=== PATIENT | male | born 1935 | race Caucasian/White ===

== ENCOUNTER 2017-01-11 23:00 | Inpatient (IN) | payer MEDICARE ==
[2017-01-11] MEDS ORDERED: SODIUM CHLORIDE 0.9% 1,000 ML IV ONE (23:13)
[2017-01-11 23:28] LABS: Basophils % (A) 1 %; CH 31.4; CHCM 33.5; Eosinophils # (A) 0.2 k/uL (0-0.7); Eosinophils % (A) 2 %; HCT 44.2 % (39.0-53.0); HDW 2.35; HGB 14.4 gm/dL (13.0-17.5); Luc # (Auto) 0.19; Luc % (Auto) 3; Lymphocytes # (A) 1.8 k/uL (1.0-4.8); Lymphocytes % (A) 26 %; MCH 30.6 pg (25.0-35.0); MCHC 32.5 g/dL (31.0-37.0); MCV 94.1 fL (80.0-100.0); Monocytes # (A) 0.3 k/uL (0-1.0); Monocytes % (A) 5 %; Neutrophils # (A) 4.2 k/uL (1.3-7.7); Neutrophils % (A) 63 %; RDW 13.4 % (11.5-15.5); WBC 6.7 k/uL (3.8-10.6); WBC (Perox) 6.31
[2017-01-11 23:34] LABS: Partial Thromboplastin Time 27.2 sec (22.0-30.0); Prothrombin Time 10.6 sec (9.0-12.0)
[2017-01-11 23:40] LABS: ALT 29 U/L (21-72); AST 25 U/L (17-59); Alkaline Phosphatase 64 U/L (38-126); Anion Gap 16 mmol/L; Blood Urea Nitrogen 20 mg/dL (9-20); Calcium 9.2 mg/dL (8.4-10.2); Carbon Dioxide 26 mmol/L (22-30); Chloride 106 mmol/L (98-107); Glucose 118 mg/dL (74-99); Magnesium 2.2 mg/dL (1.6-2.3); Non-African American GFR(MDRD) >60 (>60 ml/min/1.73 sqM); Potassium 3.9 mmol/L (3.5-5.1); Sodium 148 mmol/L (137-145); Total Bilirubin 0.3 mg/dL (0.2-1.3); Total Protein 7.9 g/dL (6.3-8.2)
--- NOTE | 2017-01-11 23:47 | ED ---
Altered Mental Status HPI - General Chief Complaint: Altered Mental Status Stated Complaint: altered mental status/fall Time Seen by Provider: 01/11/17 23:00 Source: patient, EMS, RN notes reviewed, old records reviewed Mode of arrival: EMS - History of Present Illness Initial Comments: This is a 81-year-old male who was brought in by EMS for evaluation after being found lying on his floor by a neighbor. Apparently the neighbor was walking by saw him laying on the floor by looking through his window. Patient does not know how he got there does not remember falling also denies any head neck or back pain at this time. He is not recall falling he is not sure if he passed out. He is a poor historian. Normally he is apparently awake alert oriented 2 possibly 3 at times today per EMS he is only alert oriented 1. MD Complaint: altered mental status, other - Related Data Home Medications Medication Instructions Recorded Confirmed Lisinopril-Hctz 20-12.5 mg 1 each PO DAILY 10/07/14 10/31/15 [Zestoretic 20-12.5] Previous Rx's Medication Instructions Recorded Aspirin EC [Ecotrin] 325 mg PO DAILY tablet. 10/10/14 Atorvastatin Calcium [Lipitor] 10 mg PO HS #1 tab 10/10/14 Folic Acid 1 mg PO DAILY@1200 tablet 10/10/14 Metoprolol Tartrate [Lopressor] 25 mg PO BID tab 10/10/14 Multivitamins, Thera [Multivitamin 1 each PO DAILY@1200 tab 10/10/14 (formulary)] Thiamine [Vitamin B-1] 100 mg PO DAILY@1200 tablet 10/10/14 cloNIDine HCL [Catapres] 0.1 mg PO BID tab 10/10/14 Allergies Allergy/AdvReac Type Severity Reaction Status Date / Time No Known Allergies Allergy Verified 10/31/15 18:43 Review of Systems ROS Statement: Those systems with pertinent positive or pertinent negative responses have been documented in the HPI. ROS Other: All systems not noted in ROS Statement are negative. Limitations: ROS unobtainable due to patients medical condition Past Medical History Past Medical History: Cancer, Dementia, Hypertension, Prostate Disorder Additional Past Medical History / Comment(s): 10/07/14 Pt presented to [facility] ER with C/o Diplopia starting 10/05/14. He states he got up to use the bathroom Sat nite into Tuesday and noticed double vision at that time. The double vision was making. it difficult to walk. Other HX: PROSTATE CANCER with removal, R foot 5th toe redness and edema "getting better". Bilateral tinnitis, Hemorrhiods History of Any Multi-Drug Resistant Organisms: None Reported Additional Past Surgical History / Comment(s): NECK SURGERY AND PROSTATE REMOVED , bilateral cataract removal with lens implants. Past Anesthesia/Blood Transfusion Reactions: No Reported Reaction Past Psychological History: No Psychological Hx Reported Additional Psychological History / Comment(s): Pt lives alone in his own home. Pt is normally independent. He drives a car. Smoking Status: Former smoker Past Alcohol Use History: None Reported Past Drug Use History: None Reported - Past Family History Father Family Medical History: Diabetes Mellitus Additional Family Medical History / Comment(s): Father may have had cancer but pt is not certain. Mother Family Medical History: Cancer General Exam - General Exam Comments Initial Comments: This is a well-developed well-nourished awake alert but confused male he does have a cervical collar on with a [place] Coma Scale of 14 General appearance: alert, in no apparent distress Head exam: Present: atraumatic, normocephalic, normal inspection Eye exam: Present: normal appearance, PERRL, EOMI. Absent: scleral icterus, conjunctival injection, periorbital swelling ENT exam: Present: normal exam, mucous membranes moist Neck exam: Present: normal inspection. Absent: tenderness, meningismus, lymphadenopathy Respiratory exam: Present: normal lung sounds bilaterally. Absent: respiratory distress, wheezes, rales, rhonchi, stridor Cardiovascular Exam: Present: regular rate, normal rhythm, normal heart sounds. Absent: systolic murmur, diastolic murmur, rubs, gallop, clicks GI/Abdominal exam: Present: soft, normal bowel sounds. Absent: distended, tenderness, guarding, rebound, rigid Extremities exam: Present: normal inspection, full ROM, normal capillary refill. Absent: tenderness, pedal edema, joint swelling, calf tenderness Back exam: Present: normal inspection Neurological exam: Present: alert, altered, CN II-XII intact. Absent: motor sensory deficit Psychiatric exam: Present: normal affect, normal mood Skin exam: Present: warm, dry, intact, normal color. Absent: rash Course Vital Signs 01/11/17 23:02 Temperature 97.1 F L Pulse Rate 94 Respiratory 18 Rate Blood Pressure 146/82 O2 Sat by Pulse 95 Oximetry - Reevaluation(s) Reevaluation #1: 01/12/17 00:39 I did remove the cervical collar at 12:30 AM after review the CAT scan and report. No tenderness palpation over the cervical spine or neck. Medical Decision Making - Medical Decision Making Patient remains awake and alert but confused. Patient does demonstrate an elevated lactic acid this is likely on the basis of dehydration. Patient will be admitted for evaluation of syncope and fall hydration will be given and neuro evaluation. - Lab Data Result diagrams: 01/11/17 23:14 01/11/17 23:14 Lab Results 01/11/17 01/11/17 01/11/17 Range/Units 23:14 23:14 23:14 WBC 6.7 (3.8-10.6) k/uL RBC 4.70 (4.30-5.90) m/uL Hgb 14.4 (13.0-17.5) gm/dL Hct 44.2 (39.0-53.0) % MCV 94.1 (80.0-100.0) fL MCH 30.6 (25.0-35.0) pg MCHC 32.5 (31.0-37.0) g/dL RDW 13.4 (11.5-15.5) % Plt Count 231 (150-450) k/uL Neutrophils % 63 % Lymphocytes % 26 % Monocytes % 5 % Eosinophils % 2 % Basophils % 1 % Neutrophils # 4.2 (1.3-7.7) k/uL Lymphocytes # 1.8 (1.0-4.8) k/uL Monocytes # 0.3 (0-1.0) k/uL Eosinophils # 0.2 (0-0.7) k/uL Basophils # 0.0 (0-0.2) k/uL PT (9.0-12.0) sec INR (<1.1) APTT (22.0-30.0) sec Sodium 148 H (137-145) mmol/L Potassium 3.9 (3.5-5.1) mmol/L Chloride 106 (98-107) mmol/L Carbon Dioxide 26 (22-30) mmol/L Anion Gap 16 mmol/L BUN 20 (9-20) mg/dL Creatinine 1.10 (0.66-1.25) mg/dL Est GFR (MDRD) Af Amer >60 (>60 ml/min/1.73 sqM) Est GFR (MDRD) Non-Af >60 (>60 ml/min/1.73 sqM) Glucose 118 H (74-99) mg/dL Plasma Lactic Acid Wilmer (0.7-2.0) mmol/L Calcium 9.2 (8.4-10.2) mg/dL Magnesium 2.2 (1.6-2.3) mg/dL Total Bilirubin 0.3 (0.2-1.3) mg/dL AST 25 (17-59) U/L ALT 29 (21-72) U/L Alkaline Phosphatase 64 (38-126) U/L Ammonia (<30) umol/L Total Creatine Kinase 108 (55-170) U/L CK-MB (CK-2) 1.3 (0.0-2.4) ng/mL CK-MB (CK-2) Rel Index 1.2 Troponin I <0.012 (0.000-0.034) ng/mL Total Protein 7.9 (6.3-8.2) g/dL Albumin 4.6 (3.5-5.0) g/dL 01/11/17 01/11/17 Range/Units 23:14 23:17 WBC (3.8-10.6) k/uL RBC (4.30-5.90) m/uL Hgb (13.0-17.5) gm/dL Hct (39.0-53.0) % MCV (80.0-100.0) fL MCH (25.0-35.0) pg MCHC (31.0-37.0) g/dL RDW (11.5-15.5) % Plt Count (150-450) k/uL Neutrophils % % Lymphocytes % % Monocytes % % Eosinophils % % Basophils % % Neutrophils # (1.3-7.7) k/uL Lymphocytes # (1.0-4.8) k/uL Monocytes # (0-1.0) k/uL Eosinophils # (0-0.7) k/uL Basophils # (0-0.2) k/uL PT 10.6 (9.0-12.0) sec INR 1.0 (<1.1) APTT 27.2 (22.0-30.0) sec Sodium (137-145) mmol/L Potassium (3.5-5.1) mmol/L Chloride (98-107) mmol/L Carbon Dioxide (22-30) mmol/L Anion Gap mmol/L BUN (9-20) mg/dL Creatinine (0.66-1.25) mg/dL Est GFR (MDRD) Af Amer (>60 ml/min/1.73 sqM) Est GFR (MDRD) Non-Af (>60 ml/min/1.73 sqM) Glucose (74-99) mg/dL Plasma Lactic Acid Wilmer 2.7 H* (0.7-2.0) mmol/L Calcium (8.4-10.2) mg/dL Magnesium (1.6-2.3) mg/dL Total Bilirubin (0.2-1.3) mg/dL AST (17-59) U/L ALT (21-72) U/L Alkaline Phosphatase (38-126) U/L Ammonia <9 (<30) umol/L Total Creatine Kinase (55-170) U/L CK-MB (CK-2) (0.0-2.4) ng/mL CK-MB (CK-2) Rel Index Troponin I (0.000-0.034) ng/mL Total Protein (6.3-8.2) g/dL Albumin (3.5-5.0) g/dL - EKG Data -: EKG Interpreted by Nh EKG shows normal: sinus rhythm (Sinus rhythm rate of 90. Interval 174 QRS duration 78 daily since QTC of 346/423 artifact is present) - Radiology Data Radiology results: report reviewed (I did review the imaging and reports no acute findings or is evidence of chronic changes of cervical spine.), image reviewed Disposition Clinical Impression: Syncope, Fall, Dehydration, Elevated lactic acid level Disposition: ADMITTED IP TO THIS [facility] Condition: Stable
[2017-01-11 23:48] LABS: Ammonia <9 umol/L (<30)
[2017-01-11 23:49] LABS: Creatine Kinase 108 U/L (55-170)
[2017-01-11] MEDS ORDERED: SODIUM CHLORIDE 0.9% 1,000 ML IV STA ×2 (23:55)
[2017-01-12 00:03] LABS: Creatine Kinase MB 1.3 ng/mL (0.0-2.4); Troponin I <0.012 ng/mL (0.000-0.034)
--- NOTE | 2017-01-12 00:23 | CT ---
EXAM: CT Head Without Intravenous Contrast CLINICAL HISTORY: Reason: Pain TECHNIQUE: Axial computed tomography images of the head/brain without intravenous contrast. CTDI is 58 mGy and DLP is 1345.3 mGy-cm This CT exam was performed using one or more of the following dose reduction techniques: automated exposure control, adjustment of the mA and/or kV according to patient size, and/or use of iterative reconstruction technique. Coronal and sagittal reformatted images were created and reviewed. COMPARISON: CT Head dated 10/08/14 FINDINGS: Brain: Mild chronic small vessel ischemic changes. Mild global volume loss. No evolving territorial infarction. No mass effect or edema. No hemorrhage. Ventricles: Unremarkable. No ventriculomegaly. Bones/joints: Unremarkable. No acute fracture. Soft tissues: Unremarkable. Sinuses: Opacification of the right maxillary sinus with calcifications likely from chronic sinusitis with fungal colonization vs inspissation. Mastoid air cells: Unremarkable as visualized. No mastoid effusion. Orbits: Bilateral lens replacements. IMPRESSION: No acute findings. Mild involution. Chronic right maxillary sinus disease. EXAM: CT Cervical Spine Without Intravenous Contrast CLINICAL HISTORY: Reason: Pain TECHNIQUE: Axial computed tomography images of the cervical spine without intravenous contrast. CTDI is 32.7 mGy and DLP is 632.8 mGy-cm This CT exam was performed using one or more of the following dose reduction techniques: automated exposure control, adjustment of the mA and/or kV according to patient size, and/or use of iterative reconstruction technique. Coronal and sagittal reformatted images were created and reviewed. COMPARISON: No relevant prior studies available. FINDINGS: Vertebrae: Grade 2 anterolisthesis of C7 over T1 with old fracture deformities of T1. Pedicle screws and posterior fusion rods are seen involving C5 thru T2. Multiple flowing bridging marginal osteophytes are seen suggestive of diffuse idiopathic skeletal hyperostosis. Discs/spinal canal/neural foramina: Disc osteophyte complexes are seen at all levels of the cervical spine with varying degrees of neuroforaminal stenosis and central stenosis seen. Facet disease is seen at all levels. Soft tissues: Unremarkable. Lung apices: Unremarkable as visualized. IMPRESSION: Grade 2 anterolisthesis of C7 over T1 with old fracture deformities of T1. Pedicle screws and posterior fusion rods are seen involving C5 thru T2. No acute fracture. Cervical spondylosis.
--- NOTE | 2017-01-12 00:25 | XR ---
EXAM: XR Chest, 2 Views CLINICAL HISTORY: Reason: altered mental status TECHNIQUE: Frontal and lateral views of the chest. COMPARISON: CXR 10/07/14 FINDINGS: Lungs: Left basilar atelectasis. No consolidation. Pleural space: Unremarkable. No pneumothorax. Heart: Unremarkable. No cardiomegaly. Mediastinum: Unremarkable. Bones/joints: Fusion hardware once again seen within the lower cervical and upper thoracic spine. Multilevel degenerative changes of the thoracic spine with bridging marginal osteophytes, possibly diffuse idiopathic skeletal hyperostosis. IMPRESSION: Left basilar atelectasis.
[2017-01-12 01:40] LABS: Glucose,Whole Blood 80 mg/dL (75-99)
[2017-01-12 02:29] LABS: Appearance,Urine Clear (Clear); Bilirubin,Urine Negative (Negative); Glucose,Urine (UA) Negative (Negative); Ketones,Urine Negative (Negative); Leukocyte Esterase,Urine Negative (Negative); Nitrite,Urine Negative (Negative); Protein,Urine Negative (Negative); Specific Gravity,Urine 1.003 (1.001-1.035); UA Billing (MACRO vs. MICRO) CHEM; Urobilinogen,Urine <2.0 mg/dL (<2.0)
[2017-01-12 05:06] LABS: Basophils % (A) 1 %; CHCM 32.9; Eosinophils # (A) 0.1 k/uL (0-0.7); Eosinophils % (A) 2 %; HCT 43.5 % (39.0-53.0); HDW 2.34; HGB 13.6 gm/dL (13.0-17.5); Luc # (Auto) 0.17; Luc % (Auto) 3; Lymphocytes # (A) 1.4 k/uL (1.0-4.8); Lymphocytes % (A) 27 %; MCH 29.6 pg (25.0-35.0); MCHC 31.2 g/dL (31.0-37.0); MCV 94.8 fL (80.0-100.0); Mean Platelet Volume 7.2; Monocytes # (A) 0.3 k/uL (0-1.0); Monocytes % (A) 6 %; Neutrophils # (A) 3.1 k/uL (1.3-7.7); Neutrophils % (A) 61 %; RBC 4.58 m/uL (4.30-5.90); RDW 13.3 % (11.5-15.5); WBC (Perox) 5.15
[2017-01-12 05:15] LABS: ALT 29 U/L (21-72); AST 23 U/L (17-59); Alcohol 158 mg/dL; Alkaline Phosphatase 57 U/L (38-126); Anion Gap 16 mmol/L; Blood Urea Nitrogen 16 mg/dL (9-20); Calcium 8.8 mg/dL (8.4-10.2); Carbon Dioxide 20 mmol/L (22-30); Chloride 114 mmol/L (98-107); Glucose 89 mg/dL (74-99); Magnesium 1.9 mg/dL (1.6-2.3); Non-African American GFR(MDRD) >60 (>60 ml/min/1.73 sqM); Potassium 4.2 mmol/L (3.5-5.1); Sodium 150 mmol/L (137-145); Total Bilirubin 0.3 mg/dL (0.2-1.3); Total Protein 7.2 g/dL (6.3-8.2)
[2017-01-12 05:44] VITALS: BMI 32.1
[2017-01-12 07:29] LABS: Glucose,Whole Blood 75 mg/dL (75-99)
[2017-01-12] MEDS: LISINOPRIL-HCTZ 20-12.5 MG 1 EACH TAB PO SCH (08:13)
[2017-01-12] MEDS: cloNIDine HCL 0.1 MG TAB PO SCH ×2 (08:13→21:13)
[2017-01-12] MEDS: METOPROLOL TARTRATE 25 MG TAB PO SCH ×2 (08:13→21:13)
[2017-01-12] MEDS: ASPIRIN 325 MG TAB PO SCH (08:13)
[2017-01-12] MEDS: MULTIVITAMINS, THERA 1 EACH TAB PO SCH (12:13)
[2017-01-12] MEDS: THIAMINE 100 MG TAB PO SCH (12:13)
[2017-01-12] MEDS: FOLIC ACID 1 MG TAB PO SCH (12:13)
[2017-01-12] MEDS: SODIUM CHLORIDE 0.9% 1,000 ML IV SCH ×2 (12:24→21:12)
--- NOTE | 2017-01-12 15:17 | US ---
EXAMINATION TYPE: US carotid duplex BILAT DATE OF EXAM: 01/12/2017 2:52 PM COMPARISON: 10/07/2014 CLINICAL HISTORY: Stenosis. Altered mental status. Limited exam due to patient unable to move head. EXAM MEASUREMENTS: RIGHT: Peak Systolic Velocity (PSV) cm/sec ----- Right CCA: 114.3 ----- Right ICA: 116.1 ----- Right ECA: 103.4 ICA/CCA ratio: 1.0 RIGHT: End Diastole cm/sec ----- Right CCA: 24.3 ----- Right ICA: 19.5 ----- Right ECA: 10.2 LEFT: Peak Systolic Velocity (PSV) cm/sec ----- Left CCA: 91.4 ----- Left ICA: 81.4 ----- Left ECA: 149.6 ICA/CCA ratio: 0.9 LEFT: End Diastole cm/sec ----- Left CCA: 20.2 ----- Left ICA: 23.2 ----- Left ECA: 17.5 VERTEBRALS (direction of flow): Right Vertebral: Antegrade Left Vertebral: Antegrade Elevated left ECA. Bilateral wall thickening. No significant stenosis. Plaque seen in left bulb IMPRESSION: 1. Bilateral intimal wall thickening and plaque with no significant hemodynamic stenosis.
--- NOTE | 2017-01-12 18:34 | HP ---
DATE OF ADMISSION: CHIEF COMPLAINT: Altered mental status and fall on the floor. HISTORY OF ILLNESS: Mr. Silva is an 81-year-old male with a known history of hypertension, history of CVA with right facial droop. He was brought to the hospital, as he was found lying on his floor by a neighbor. Apparently the neighbor was walking by and saw him lying on the floor while looking through his window. Patient says that he was trying to get up from the couch and felt dizzy and fell. Patient says that he had several episodes like this before. Patient says that he usually will get a syncopal episode when he is trying to get up from a sitting position. Patient was also found to have alcohol intoxication with an alcohol level of 123 on admission. He was very dehydrated with elevated lactic acid when he came to the hospital. Patient evidently has not been taking all his blood pressure medications ( ) and blood pressure is elevated at this time. Patient does not recall completely his falling. He is not if he passed out completely or not. Patient is a poor historian. Denied any fever or chills. No chest pain or shortness of breath. No recent illnesses or sick contacts at home. No recent travel. REVIEW OF SYSTEMS: CONSTITUTIONAL: No fever. No chills. No new weakness. RESPIRATORY: No cough or sputum production. CARDIOVASCULAR: No chest pain or shortness of breath. No leg swelling. ABDOMEN: No nausea, vomiting, abdominal pain. GENITOURINARY: Negative. ENDOCRINE: Negative. PSYCHIATRY: Negative. SKIN: Negative. All other fourteen-point review of symptoms negative except as above. Past medical history includes: 1. Hypertension. 2. Dementia. 3. History of prostate cancer, status post resection. 4. History of CVA with right facial droop and diplopia. 5. Bilateral tinnitus. 6. Hemorrhoids. PAST SURGICAL HISTORY: 1. Neck surgery. 2. Prostate surgery (removed). 3. Bilateral cataract removal with lens implants. No psychosocial history. SOCIAL HISTORY: Patient lives alone in his own home. Drives a car. Patient is a former smoker. Denied any smoking now. Patient does drink alcohol. Patient denied any ( ) drinking. Patient was intoxicated on admission. Denied any drugs or IVDU. FAMILY HISTORY: Father had diabetes mellitus. Mother had cancer. ALLERGIES: NO KNOWN DRUG ALLERGIES. Home medications include: 1. Lisinopril hydrochlorothiazide. 2. Aspirin. 3. Atorvastatin. 4. Metoprolol. 5. Multivitamins. 6. Thiamine. 7. Claritin. PHYSICAL EXAMINATION: An 81-year-old male lying in bed comfortably. Awake, alert, oriented x3. Patient is a poor historian. VITALS: Blood pressure is 173/75. Pulse is 82, respiration 23, temperature afebrile, pulse ox 96% on room air. HEENT: Atraumatic, normocephalic. Neck is supple. No JVD. CVS: S1, S2 heard. No murmurs. No gallop. LUNGS: Bilateral air entry is present. Non-labored breathing. ABDOMEN: Soft, obese. Bowel sounds are present. [employer]: Awake, alert, oriented x3. Patient does have right-sided facial droop. Otherwise, bilateral upper and lower extremity muscle strength normal. EXTREMITIES: No edema. Pulses palpable bilaterally. No clubbing or cyanosis. PSYCHIATRIC: Cooperative. LABORATORY DATA: WBC 5.0, hemoglobin 13.6, platelets 221. Sodium 150, potassium 4.2, chloride 114. Bicarb is 20. BUN 16, creatinine 0.82. Lactic acid 2.6. UA negative. UDS is negative. Serum alcohol level is 158. ASSESSMENT: 1. Syncope, mostly secondary to dehydration and orthostatic hypotension. 2. Volume depletion and dehydration. 3. Elevated lactic acid due to decrease in tissue perfusion. 4. Hypertension, uncontrolled. 5. History of cerebrovascular accident with right facial droop. 6. Dementia. 7. Metabolic acidosis. DISCUSSION AND PLAN: Patient will be continued on IV fluids changed to half normal saline. Continue thiamine and folic acid. Continue the home blood pressure medications. Follow closely. Further recommendations based on the clinical course. Pulmonary on board.
[2017-01-12] MEDS: ATORVASTATIN 10 MG TAB PO SCH (21:13)
[2017-01-12] MEDS: SODIUM CHLORIDE 0.45% 1,000 ML IV SCH (21:14)
[2017-01-13] MEDS: SODIUM CHLORIDE 0.45% 1,000 ML IV SCH ×2 (04:53→20:10)
[2017-01-13 04:57] LABS: CH 30.9; CHCM 33.4; HCT 35.9 % (39.0-53.0); HDW 2.38; MCH 31.1 pg (25.0-35.0); MCHC 33.4 g/dL (31.0-37.0); MCV 93.1 fL (80.0-100.0); RBC 3.85 m/uL (4.30-5.90); RDW 13.5 % (11.5-15.5); WBC 7.8 k/uL (3.8-10.6)
[2017-01-13 05:08] LABS: Anion Gap 7 mmol/L; Blood Urea Nitrogen 15 mg/dL (9-20); Calcium 8.6 mg/dL (8.4-10.2); Carbon Dioxide 26 mmol/L (22-30); Chloride 106 mmol/L (98-107); Cholesterol 129 mg/dL (<200); Glucose 94 mg/dL (74-99); HDL Cholesterol 43 mg/dL (40-60); Magnesium 1.8 mg/dL (1.6-2.3); Non-African American GFR(MDRD) >60 (>60 ml/min/1.73 sqM); Potassium 3.9 mmol/L (3.5-5.1); Sodium 139 mmol/L (137-145); Triglycerides 135 mg/dL (<150)
[2017-01-13] MEDS ORDERED: Magnesium Replacement Protocol 1 EACH MISC MISCELLANE PRN (05:34)
[2017-01-13] MEDS ORDERED: Potassium Replacement Protocol 1 EACH MISC MISCELLANE PRN (05:35)
[2017-01-13] MEDS ORDERED: POTASSIUM CHLORIDE ER 20 MEQ TAB.ER PO SCH (06:00)
[2017-01-13] MEDS: MAGNESIUM SULFATE-D5W PMX 1 GM in DEXTROSE/WATER 1 100ML.BAG IVPB SCH ×2 (07:03→08:23)
[2017-01-13] MEDS: LISINOPRIL-HCTZ 20-12.5 MG 1 EACH TAB PO SCH (08:42)
[2017-01-13] MEDS: cloNIDine HCL 0.1 MG TAB PO SCH ×2 (08:42→20:11)
[2017-01-13] MEDS: METOPROLOL TARTRATE 25 MG TAB PO SCH ×2 (08:42→20:11)
[2017-01-13] MEDS: ASPIRIN 325 MG TAB PO SCH (08:42)
--- NOTE | 2017-01-13 09:07 | CONS ---
DATE OF CONSULTATION: 01/12/2017 CHIEF COMPLAINT: Syncope. HISTORY OF PRESENT ILLNESS: Mr. Ibarra is a pleasant 81-year-old male who is being evaluated today on 01/12/2017 by the neurology service per the request of Dr. Galeano for a syncopal spell. The patient was brought into [facility] emergency room after he was found unconscious on the floor of his house. The patient was found by his neighbor. The patient does not recall what happened. He does state that he had been drinking. In the emergency room, the patient was slurring his speech and there was concerns for a stroke. A CT scan of the brain was done, which showed small vessel ischemic changes and generalized atrophy. His carotid Doppler showed no hemodynamically significant stenosis. The patient states that he does drink alcohol once or twice per week. When asked how much he drinks, he states "I don't count". His serum alcohol level was significant elevated at 158. His comprehensive metabolic profile showed hypernatremia at 150. His lactic acid level was slightly elevated at 2.6. His cardiac enzymes, CBC, urinalysis and urine drug screens were normal. At the time of my evaluation, the patient is lying in his bed and appears to be in no acute distress. He is much more awake and alert and his speech is back to normal. He denies any history of seizures. He does report that he has had falls in the past but this appears to be alcohol related as well. PAST MEDICAL HISTORY: Prostate cancer, dementia, hypertension, history of prostate gland resection, neck surgery, cataract surgery, lens implant. SOCIAL HISTORY: The patient is a former smoker. He drinks alcohol as mentioned above. He denies any drug use. FAMILY HISTORY: Diabetes and cancer. HOME MEDICATIONS: Reviewed in the chart. ALLERGIES: No known drug allergies. Vital signs show a temperature of 98.7, pulse 94, respirations 19, blood pressure 166/70. GENERAL APPEARANCE: The patient is a mildly obese, elderly male who appears to be in no acute distress. HEENT: Normocephalic with mild superficial abrasions seen in the frontal region. Mild right facial drooping is seen from a previous stroke. Neck is supple with no masses felt. CARDIOVASCULAR: Regular rate and rhythm. ABDOMEN: Obese, nontender, nondistended. Extremities showed trace edema with no clubbing seen. NEUROLOGICAL EXAM: The patient is awake, and oriented x3. Speech and language are normal. Strength is full in all 4 extremities. Sensory exam was normal to light touch in all 4 extremities. Mild right facial drooping is seen on cranial nerve testing. No tremors or seizure-like activity is seen. IMPRESSION: 1. Syncopal spell. 2. Electrolyte imbalance. 3. Alcohol intoxication. 4. History of ischemic stroke. 5. Small vessel ischemic disease. RECOMMENDATIONS: The patient's syncopal spell was likely multifactorial and secondary to dehydration, electrolyte imbalance, and alcohol intoxication. The patient was counseled on alcohol cessation. I did review his CT scan of the brain, which showed no acute intracranial abnormalities. An EEG has been ordered. Continue aspirin for his history of stroke and small vessel ischemic disease. The patient is on Lipitor for statin drug therapy. His right facial droop is due to his old stroke and this is unchanged. Continue the rest of your current work-up and management. I will continue to follow with you. Further recommendations to follow. Thank you for allowing me to participate in the care of your patient. If you have any questions, please feel free to contact me.
[2017-01-13] MEDS: MULTIVITAMINS, THERA 1 EACH TAB PO SCH (11:30)
[2017-01-13] MEDS: FOLIC ACID 1 MG TAB PO SCH (11:30)
[2017-01-13] MEDS: THIAMINE 100 MG TAB PO SCH (11:31)
--- NOTE | 2017-01-13 17:47 | P.PN ---
Subjective Principal diagnosis: Syncope Is a pleasant 81-year-old male continue be evaluated by the neurology service for a syncopal spell. He was brought to [facility] emergency room after he was found unconscious. He to the brain was done and showed small vessel ischemic changes and generalized atrophy. Carotid Doppler showed no hemodynamically significant stenosis. After admission the ICU was found that his serum alcohol level was quite elevated. At time my exam he is resting in his bedside recliner quite comfortably watching TV. Objective - Vital Signs Vital signs: Vital Signs Temp 97.6 F 01/13/17 16:00 Pulse 60 01/13/17 16:00 Resp 19 01/13/17 16:00 BP 113/63 01/13/17 16:00 Pulse Ox 98 01/13/17 16:00 Intake & Output 01/12/17 01/13/17 01/13/17 18:59 06:59 18:59 Intake Total 1000 1340 800 Output Total 1000 750 850 Balance 0 590 -50 Weight 98.6 kg 105.2 kg 105.2 kg Intake: IV 1000 1100 400 Sodium Chloride 0.9% 1, 1000 1100 400 000 ml @ 100 mls/hr IV . Q10H [facility] Rx#:[id number] Intake, IV Titration 400 Amount Magnesium Sulfate-D5w Pmx 100 1 gm In Dextrose/Water 1 100ml.bag @ 100 mls/hr IVPB Q1H [facility] Rx#: [id number] Sodium Chloride 0.45% 1, 300 000 ml @ 100 mls/hr IV . Q10H [facility] Rx#:[id number] Oral 240 Output: Urine 1000 750 850 Other: Voiding Method Indwelling Catheter Indwelling Catheter Indwelling Catheter - Constitutional General appearance: Present: average body habitus, cooperative, no acute distress - EENT Eyes: Present: PERRLA, ptosis. Absent: abnormal pupil ENT: Present: hard of hearing - Neck Neck: Present: normal ROM. Absent: rigidity - Respiratory Respiratory: negative: prolonged expiration, prolonged inspiration - Cardiovascular Rhythm: regular - Gastrointestinal General gastrointestinal: Absent: distended, tenderness - Neurologic Neurologic Comment(s): Patient is alert awake and oriented 3. Speech and language are normal. Strength is full in all 4 extremities. There is no sensory deficit. Racial drooping is seen from previous stroke. No tremors or seizure-like activities are seen. - Labs CBC & Chem 7: 01/13/17 04:32 01/13/17 04:32 Labs: Abnormal Lab Results - Last 24 Hours (Table) 01/13/17 Range/Units 04:32 RBC 3.85 L (4.30-5.90) m/uL Hgb 12.0 L (13.0-17.5) gm/dL Hct 35.9 L (39.0-53.0) % Microbiology - Last 24 Hours (Table) 01/12/17 02:12 Urine Culture - Final Urine,Catheterized Assessment and Plan (1) Alcohol intoxication Status: Resolved (2) History of stroke Status: Chronic (3) Dehydration Status: Resolved (4) Elevated lactic acid level Status: Acute (5) Fall Status: Acute (6) Syncope Status: Acute Plan: The patient syncopal episode was likely multifactorial given his date hydration and alcohol intoxication. An EEG has been performed. An barring any unforeseen abnormalities she would be discharged from a neurological standpoint. Continue the remainder of your workup and we may be contacted on an as needed basis he had I have performed a history and physical on the above patient. I have reviewed the above note, and agree.
[2017-01-13] MEDS: ATORVASTATIN 10 MG TAB PO SCH (20:11)
[2017-01-14 04:36] LABS: Basophils % (A) 0 %; CH 31.5; CHCM 34.3; Eosinophils # (A) 0.2 k/uL (0-0.7); Eosinophils % (A) 4 %; HCT 36.6 % (39.0-53.0); HDW 2.44; HGB 12.3 gm/dL (13.0-17.5); Luc # (Auto) 0.13; Luc % (Auto) 2; Lymphocytes # (A) 1.4 k/uL (1.0-4.8); Lymphocytes % (A) 21 %; MCH 30.9 pg (25.0-35.0); MCHC 33.5 g/dL (31.0-37.0); MCV 92.2 fL (80.0-100.0); Mean Platelet Volume 6.8; Monocytes # (A) 0.4 k/uL (0-1.0); Monocytes % (A) 6 %; Neutrophils # (A) 4.6 k/uL (1.3-7.7); Neutrophils % (A) 68 %; RBC 3.97 m/uL (4.30-5.90); RDW 13.1 % (11.5-15.5); WBC 6.8 k/uL (3.8-10.6)
[2017-01-14 04:50] LABS: Anion Gap 8 mmol/L; Blood Urea Nitrogen 21 mg/dL (9-20); Calcium 8.8 mg/dL (8.4-10.2); Carbon Dioxide 27 mmol/L (22-30); Chloride 107 mmol/L (98-107); Glucose 100 mg/dL (74-99); Magnesium 1.9 mg/dL (1.6-2.3); Non-African American GFR(MDRD) >60 (>60 ml/min/1.73 sqM); Potassium 4.1 mmol/L (3.5-5.1); Sodium 142 mmol/L (137-145)
[2017-01-14 07:51] VITALS: BP 164/81; PULSE 67; RESP 18; TEMP 98.2
--- NOTE | 2017-01-14 08:35 | PN ---
DATE OF SERVICE: 01/13/2017 Mr. Silva is an 81-year-old male with a known history of hypertension, CVA with right facial droop, was brought to the hospital as he was found lying on the floor by his neighbor. The patient was found to have alcoholic intoxication and dehydration with elevated lactic acid level. Today his sodium level is much improved now, to 139, as well as the lactic acidosis. Currently the patient is able to sit in the chair and is tolerating p.o. diet. No complaints of chest pain or short of breath. No acute overnight issues. Patient is being monitored for alcohol withdrawal symptoms. Neurology has seen the patient and has recommended an EEG to rule out any seizure activity. REVIEW OF SYSTEMS: CONSTITUTIONAL: No fever. No chills. No weakness or malaise. RESPIRATORY: No cough or sputum production. CARDIOVASCULAR: No chest pain or shortness of breath. ABDOMEN: No nausea, vomiting or abdominal pain. GENITOURINARY: Negative. ENDOCRINE: Negative. PSYCHIATRIC: Negative. MUSCULOSKELETAL: Negative. The rest of the fourteen-point review of systems negative except as above. CURRENT MEDICATIONS: Reviewed. PHYSICAL EXAMINATION: An 81-year-old male lying in bed comfortably, awake, alert, oriented x3. No acute distress. VITALS: Blood pressure is 129/65, pulse is 67, respirations 16, temperature afebrile, pulse ox 97% on room air. HEENT: Atraumatic, normocephalic. NECK: Supple. No JVD. CVS: S1, S2 heard. No murmurs, no gallop, no rub. LUNGS: Bilateral air entry is present. No wheezing. No crackles. Nonlabored breathing. ABDOMEN: Soft, nontender bowel sounds present. BERRY PLANTER: Alert, awake, oriented x3. No focal deficit. EXTREMITIES: No edema. Pulses palpable bilaterally. NEURO: No focal deficits. PSYCHIATRIC: Cooperative. LABORATORY DATA: WBC 7.8, hemoglobin 12, platelets 223, sodium 139, potassium 3.9, chloride 106, bicarb is 26. BUN 15, creatinine 0.8, phosphorus 3.0, magnesium 1.8, calcium 8.6, LDL is 59. Troponin x3 is negative. IMPRESSION: 1. Syncope, most likely secondary to dehydration and orthostatic hypotension. 2. Hyponatremia secondary to volume depletion and dehydration. 3. Increased lactic acidosis secondary to dehydration and decreased tissue perfusion. 4. Hypertension. 5. History of cerebrovascular accident with right facial droop and dementia. 6. Metabolic acidosis, resolved, secondary to acute kidney injury. 7. Acute kidney injury. PLAN: Patient will be continued on p.o. diet and decrease IV fluids. Continue the thiamine, folic acid and monitor alcohol withdrawal symptoms. EEG will be done. Neurology is following this patient. Further recommendations based on clinical course. Anticipate discharge in the next 24 hours.
[2017-01-14] MEDS: SODIUM CHLORIDE 0.45% 1,000 ML IV SCH (08:57)
[2017-01-14] MEDS: LISINOPRIL-HCTZ 20-12.5 MG 1 EACH TAB PO SCH (10:54)
[2017-01-14] MEDS: cloNIDine HCL 0.1 MG TAB PO SCH (10:54)
[2017-01-14] MEDS: ASPIRIN 325 MG TAB PO SCH (10:54)
[2017-01-14] MEDS: METOPROLOL TARTRATE 25 MG TAB PO SCH (10:55)
[2017-01-14] MEDS ORDERED: ARTIFICIAL TEARS-HYPROMELLOSE DROPS 15 ML BTL BOTH EYES PRN (12:09)
--- NOTE | 2017-01-15 08:46 | EEG ---
DATE OF SERVICE: 01/13/2017 INDICATIONS FOR EXAMINATION: Syncope. AGE: 81Y DESCRIPTION OF THE PROCEDURE: This EEG was performed using a 21-channel digital electroencephalograph, following the international 10 to 20 system. DESCRIPTION OF THE RECORDING: From the beginning of the tracing, and with the patient's eyes closed, the background rhythm was mostly consisting of 8 Hz alpha frequency in the posterior occipital leads. No obvious asymmetry is seen. Occasional movement artifacts and muscle artifacts are seen. Photic stimulation was performed with no driving response seen. No pathological waves were elicited. Hyperventilation was not performed. The patient remains awake throughout the tracing. No epileptiform discharges were seen. His EKG lead showed a regular rate and rhythm. INTERPRETATION: This awake EEG can be considered within normal limits. There was no asymmetry seen. No epileptiform discharges were noticed. The absence of epileptiform discharges does not rule out the diagnosis of epilepsy, therefore, clinical correlation is recommended.
--- NOTE | 2017-01-19 08:44 | DS ---
DATE OF ADMISSION: 01/12/2017 DATE OF DISCHARGE: 01/14/2017 DISCHARGE DIAGNOSES: 1. Syncope most likely secondary to dehydration and orthostatic hypotension. CT showed no CVA. EEG was done, report shows no seizure activity. 2. Hyponatremia secondary to hypovolemic hyponatremia. 3. Increased lactic acidosis secondary to dehydration and decreased tissue perfusion. 4. Hypertension. 5. History of cerebrovascular accident with right facial droop and dementia. 6. Acute kidney injury. 7. Metabolic encephalopathy, resolved. 8. Alcohol abuse. HOSPITAL COURSE: Mr. Silva is an 81-year-old male with known history of CVA and alcohol use, was found by his neighbor as the patient was lying on the floor. Patient was found to have alcohol intoxication on admission with elevated lactic acid level and low sodium level and dehydration and acute kidney injury. Patient was continued on IV fluids. Patient was seen by Neurology and CT head and CT neck was done, showed grade 2 anterolisthesis, no acute CVA noted. EEG was done to rule out any seizure activity. Preliminary report showed no seizure activity. Otherwise, patient is symptomatically improved with IV hydration, tolerating p.o. intake and denied any problems with urination. Patient was monitored for alcohol withdrawal symptoms. Patient was extensively counseled for alcohol abuse. Otherwise, patient is stable to be discharged back over with his family. DISCHARGE PHYSICAL EXAMINATION: An 81-year-old male lying in bed comfortably, awake, alert, oriented x3. Appears to be in no apparent distress. VITALS: Blood pressure is 164/81, pulse is 67, respirations 18, temperature afebrile, pulse ox 98% on room air. LABORATORY DATA: Reviewed. Discharge physical examination done. Discharge medications include: 1. Zestoretic 20-12.5 one tablet p.o. daily. 2. Folic acid 1 mg p.o. daily. 3. Multivitamins 1 tablet p.o. daily. 4. Thiamine 100 mg p.o. daily. 5. Amlodipine 10 mg p.o. daily. Patient will be discharged home with family care and follow with Dr. Gunderson in [address] Julio Cesar Jeffrey in 1 to 2 days. Home with self-care. Heart-healthy diet and counseled for alcohol abuse.
== END 2017-01-14 13:10 | disposition home or self-care (01) | DRG 641 ==
LOC: EEVIPCON 23:00 → EC 23:00 → 6ICU 01-12 00:44 → 5MS5E 01-14 05:55
PROVIDERS: ADMIT Hospitalist; ATTEND Hospitalist
DX: E86.0 Dehydration (principal); N17.9 Acute kidney failure, unspecified; E87.0 Hyperosmolality and hypernatremia; E87.2 Acidosis; I95.1 Orthostatic hypotension; F03.90 Unspecified dementia, unspecified severity, without behavioral disturbance, psychotic disturbance, mood disturbance, and anxiety; I10 Essential (primary) hypertension; K64.9 Unspecified hemorrhoids; F10.129 Alcohol abuse with intoxication, unspecified; H93.13 Tinnitus, bilateral; I69.992 Facial weakness following unspecified cerebrovascular disease; I69.998 Other sequelae following unspecified cerebrovascular disease; H53.2 Diplopia; Z79.899 Other long term (current) drug therapy; Z79.82 Long term (current) use of aspirin; Z85.46 Personal history of malignant neoplasm of prostate; Z87.891 Personal history of nicotine dependence; W18.30XA Fall on same level, unspecified, initial encounter; Y92.009 Unspecified place in unspecified non-institutional (private) residence as the place of occurrence of the external cause; Y90.6 Blood alcohol level of 120-199 mg/100 ml
CPT/HCPCS: 36415; 70450; 71020; 72125; 80048; 80053; 80061; 80306; 80320; 81003; 82140; 82550; 82553; 83605; 83735; 84100; 84484; 85025; 85027; 85610; 85730; 87086; 93005; 93880; 95819; 96360; 96361; 99285

== ENCOUNTER 2018-07-07 14:13 | Observation (INO) | payer MEDICARE, OTHER ==
[2018-07-07] MEDS ORDERED: SODIUM CHLORIDE 0.9% 1,000 ML IV ONE (14:18)
[2018-07-07 14:20] LABS: Glucose,Whole Blood 78 mg/dL (75-99)
--- NOTE | 2018-07-07 14:31 | ED ---
Fall HPI - General Stated Complaint: Unresponsive Time Seen by Provider: 07/07/18 14:13 Source: EMS, RN notes reviewed, old records reviewed - History of Present Illness Initial Comments: This is a 82-year-old male with a history of CVA and dementia CHF hypertension was last seen awake and active and about 7 PM last night who at noon today was found on the floor face down in his residence. This unclear how long he was down for he was awake but not responsive he did have a laceration to the occipital parietal scalp in 121. No apparent focal deficits. There was apparently the smell of alcohol on his breath per paramedics. There was a bottle of vodka at his residence. MD Complaint: fall, other - Related Data Home Medications Medication Instructions Recorded Confirmed Ergocalciferol [Vitamin D2] 50,000 unit PO Q7D 07/07/18 07/07/18 Lisinopril-Hctz 20-25 mg 1 tab PO DAILY 07/07/18 07/07/18 [Zestoretic 20-25] Simvastatin [Zocor] 20 mg PO HS 07/07/18 07/07/18 Allergies Allergy/AdvReac Type Severity Reaction Status Date / Time No Known Allergies Allergy Verified 07/07/18 14:40 Review of Systems ROS Statement: Those systems with pertinent positive or pertinent negative responses have been documented in the HPI. ROS Other: All systems not noted in ROS Statement are negative. Limitations: ROS unobtainable due to patients medical condition Past Medical History Past Medical History: Cancer, CVA/TIA, Dementia, Hypertension, Prostate Disorder Additional Past Medical History / Comment(s): 10/07/14 Pt presented to [facility] ER with C/o Diplopia starting 10/05/14. He states he got up to use the bathroom Sat nite into Tuesday and noticed double vision at that time. The double vision was making. it difficult to walk. Other HX: PROSTATE CANCER with removal, R foot 5th toe redness and edema "getting better". Bilateral tinnitis, Hemorrhiods History of Any Multi-Drug Resistant Organisms: None Reported Additional Past Surgical History / Comment(s): NECK SURGERY AND PROSTATE REMOVED , bilateral cataract removal with lens implants. Past Anesthesia/Blood Transfusion Reactions: No Reported Reaction Past Psychological History: No Psychological Hx Reported Additional Psychological History / Comment(s): Pt lives alone in his own home. Pt is normally independent. He drives a car. Smoking Status: Former smoker Past Alcohol Use History: None Reported Past Drug Use History: None Reported - Past Family History Father Family Medical History: Diabetes Mellitus Additional Family Medical History / Comment(s): Father may have had cancer but pt is not certain. Mother Family Medical History: Cancer General Exam - General Exam Comments Initial Comments: This a well-developed well-nourished awake but confused appearing male Limitations: altered mental status, physical limitation General appearance: alert, lethargic Head exam: Present: normocephalic, other (Approximately 2 cm superficial abrasion seen to the midoccipital parental scalp no step-off crepitation at this time no repair appears to be indicated) Eye exam: Present: normal appearance, PERRL, EOMI. Absent: scleral icterus, conjunctival injection, periorbital swelling ENT exam: Present: mucous membranes dry Neck exam: Present: normal inspection, other (Cervical collar is in place no tenderness palpation elicited.) Respiratory exam: Present: normal lung sounds bilaterally. Absent: respiratory distress, wheezes, rales, rhonchi, stridor Cardiovascular Exam: Present: regular rate, normal rhythm, normal heart sounds. Absent: systolic murmur, diastolic murmur, rubs, gallop, clicks GI/Abdominal exam: Present: soft, normal bowel sounds. Absent: distended, tenderness, guarding, rebound, rigid Extremities exam: Present: normal inspection, full ROM, normal capillary refill. Absent: tenderness, pedal edema, joint swelling, calf tenderness Back exam: Present: normal inspection Neurological exam: Present: alert, altered, CN II-XII intact Psychiatric exam: Present: other (Unable to evaluate) Skin exam: Present: dry, intact, normal color, other (Somewhat cool to touch). Absent: rash Course Vital Signs 07/07/18 07/07/18 14:26 16:40 Temperature 97.6 F Pulse Rate 87 Respiratory 18 17 Rate Blood Pressure 136/80 135/88 O2 Sat by Pulse 99 98 Oximetry - Reevaluation(s) Reevaluation #1: 07/07/18 17:46 Patient is more responsive than earlier. I did discuss the case with the patient's guardian who is his son. Patient will be admitted for inpatient treatment Reevaluation #2: 07/07/18 17:53 I did discuss findings with the patient is guardian the patient is a chronic alcoholic and does consume large amounts of alcohol he's been doing this for years. The guardian is not sure whether the patient several rounds through DTs/ alcohol withdrawal. Patient will be placed on a protocol Medical Decision Making - Medical Decision Making I did discuss findings with the hospitalist service patient will be admitted - Lab Data Result diagrams: 07/07/18 14:32 07/07/18 14:32 Lab Results 07/07/18 07/07/18 07/07/18 Range/Units 14:17 14:26 14:26 WBC (3.8-10.6) k/uL RBC (4.30-5.90) m/uL Hgb (13.0-17.5) gm/dL Hct (39.0-53.0) % MCV (80.0-100.0) fL MCH (25.0-35.0) pg MCHC (31.0-37.0) g/dL RDW (11.5-15.5) % Plt Count (150-450) k/uL Neutrophils % % Lymphocytes % % Monocytes % % Eosinophils % % Basophils % % Neutrophils # (1.3-7.7) k/uL Lymphocytes # (1.0-4.8) k/uL Monocytes # (0-1.0) k/uL Eosinophils # (0-0.7) k/uL Basophils # (0-0.2) k/uL PT 10.7 (9.0-12.0) sec INR 1.1 (<1.2) APTT 24.6 (22.0-30.0) sec Sodium (137-145) mmol/L Potassium (3.5-5.1) mmol/L Chloride (98-107) mmol/L Carbon Dioxide (22-30) mmol/L Anion Gap mmol/L BUN (9-20) mg/dL Creatinine (0.66-1.25) mg/dL Est GFR (CKD-EPI)AfAm (>60 ml/min/1.73 sqM) Est GFR (CKD-EPI)NonAf (>60 ml/min/1.73 sqM) Glucose (74-99) mg/dL POC Glucose (mg/dL) 78 (75-99) mg/dL POC Glu Juvenile Justice Specialist ID Cande Tellez Calcium (8.4-10.2) mg/dL Total Bilirubin (0.2-1.3) mg/dL AST (17-59) U/L ALT (21-72) U/L Alkaline Phosphatase (38-126) U/L Ammonia <9 (<30) umol/L Total Creatine Kinase (55-170) U/L CK-MB (CK-2) (0.0-2.4) ng/mL CK-MB (CK-2) Rel Index Troponin I (0.000-0.034) ng/mL Total Protein (6.3-8.2) g/dL Albumin (3.5-5.0) g/dL Urine Color Urine Appearance (Clear) Urine pH (5.0-8.0) Ur Specific Cedar (1.001-1.035) Urine Protein (Negative) Urine Glucose (UA) (Negative) Urine Ketones (Negative) Urine Blood (Negative) Urine Nitrite (Negative) Urine Bilirubin (Negative) Urine Urobilinogen (<2.0) mg/dL Ur Leukocyte Esterase (Negative) Urine Opiates Screen (NotDetected) Ur Oxycodone Screen (NotDetected) Urine Methadone Screen (NotDetected) Ur Propoxyphene Screen (NotDetected) Ur Barbiturates Screen (NotDetected) U Tricyclic Antidepress (NotDetected) Ur Phencyclidine Scrn (NotDetected) Ur Amphetamines Screen (NotDetected) U Methamphetamines Scrn (NotDetected) U Benzodiazepines Scrn (NotDetected) Urine Cocaine Screen (NotDetected) U Marijuana (THC) Screen (NotDetected) Serum Alcohol mg/dL 07/07/18 07/07/18 07/07/18 Range/Units 14:32 14:32 14:32 WBC 6.1 (3.8-10.6) k/uL RBC 4.46 (4.30-5.90) m/uL Hgb 13.5 (13.0-17.5) gm/dL Hct 40.9 (39.0-53.0) % MCV 91.7 (80.0-100.0) fL MCH 30.3 (25.0-35.0) pg MCHC 33.0 (31.0-37.0) g/dL RDW 13.2 (11.5-15.5) % Plt Count 198 (150-450) k/uL Neutrophils % 60 % Lymphocytes % 27 % Monocytes % 6 % Eosinophils % 3 % Basophils % 1 % Neutrophils # 3.7 (1.3-7.7) k/uL Lymphocytes # 1.7 (1.0-4.8) k/uL Monocytes # 0.3 (0-1.0) k/uL Eosinophils # 0.2 (0-0.7) k/uL Basophils # 0.0 (0-0.2) k/uL PT (9.0-12.0) sec INR (<1.2) APTT (22.0-30.0) sec Sodium 145 (137-145) mmol/L Potassium 4.8 (3.5-5.1) mmol/L Chloride 107 (98-107) mmol/L Carbon Dioxide 25 (22-30) mmol/L Anion Gap 13 mmol/L BUN 24 H (9-20) mg/dL Creatinine 0.80 (0.66-1.25) mg/dL Est GFR (CKD-EPI)AfAm >90 (>60 ml/min/1.73 sqM) Est GFR (CKD-EPI)NonAf 84 (>60 ml/min/1.73 sqM) Glucose 89 (74-99) mg/dL POC Glucose (mg/dL) (75-99) mg/dL POC Glu Juvenile Justice Specialist ID Calcium 9.6 (8.4-10.2) mg/dL Total Bilirubin 0.3 (0.2-1.3) mg/dL AST 28 (17-59) U/L ALT 26 (21-72) U/L Alkaline Phosphatase 61 (38-126) U/L Ammonia (<30) umol/L Total Creatine Kinase 53 L (55-170) U/L CK-MB (CK-2) 0.7 (0.0-2.4) ng/mL CK-MB (CK-2) Rel Index 1.3 Troponin I <0.012 (0.000-0.034) ng/mL Total Protein 7.6 (6.3-8.2) g/dL Albumin 4.2 (3.5-5.0) g/dL Urine Color Urine Appearance (Clear) Urine pH (5.0-8.0) Ur Specific Cedar (1.001-1.035) Urine Protein (Negative) Urine Glucose (UA) (Negative) Urine Ketones (Negative) Urine Blood (Negative) Urine Nitrite (Negative) Urine Bilirubin (Negative) Urine Urobilinogen (<2.0) mg/dL Ur Leukocyte Esterase (Negative) Urine Opiates Screen (NotDetected) Ur Oxycodone Screen (NotDetected) Urine Methadone Screen (NotDetected) Ur Propoxyphene Screen (NotDetected) Ur Barbiturates Screen (NotDetected) U Tricyclic Antidepress (NotDetected) Ur Phencyclidine Scrn (NotDetected) Ur Amphetamines Screen (NotDetected) U Methamphetamines Scrn (NotDetected) U Benzodiazepines Scrn (NotDetected) Urine Cocaine Screen (NotDetected) U Marijuana (THC) Screen (NotDetected) Serum Alcohol 286 H* mg/dL 07/07/18 Range/Units 14:54 WBC (3.8-10.6) k/uL RBC (4.30-5.90) m/uL Hgb (13.0-17.5) gm/dL Hct (39.0-53.0) % MCV (80.0-100.0) fL MCH (25.0-35.0) pg MCHC (31.0-37.0) g/dL RDW (11.5-15.5) % Plt Count (150-450) k/uL Neutrophils % % Lymphocytes % % Monocytes % % Eosinophils % % Basophils % % Neutrophils # (1.3-7.7) k/uL Lymphocytes # (1.0-4.8) k/uL Monocytes # (0-1.0) k/uL Eosinophils # (0-0.7) k/uL Basophils # (0-0.2) k/uL PT (9.0-12.0) sec INR (<1.2) APTT (22.0-30.0) sec Sodium (137-145) mmol/L Potassium (3.5-5.1) mmol/L Chloride (98-107) mmol/L Carbon Dioxide (22-30) mmol/L Anion Gap mmol/L BUN (9-20) mg/dL Creatinine (0.66-1.25) mg/dL Est GFR (CKD-EPI)AfAm (>60 ml/min/1.73 sqM) Est GFR (CKD-EPI)NonAf (>60 ml/min/1.73 sqM) Glucose (74-99) mg/dL POC Glucose (mg/dL) (75-99) mg/dL POC Glu Juvenile Justice Specialist ID Calcium (8.4-10.2) mg/dL Total Bilirubin (0.2-1.3) mg/dL AST (17-59) U/L ALT (21-72) U/L Alkaline Phosphatase (38-126) U/L Ammonia (<30) umol/L Total Creatine Kinase (55-170) U/L CK-MB (CK-2) (0.0-2.4) ng/mL CK-MB (CK-2) Rel Index Troponin I (0.000-0.034) ng/mL Total Protein (6.3-8.2) g/dL Albumin (3.5-5.0) g/dL Urine Color Light Yellow Urine Appearance Clear (Clear) Urine pH 5.0 (5.0-8.0) Ur Specific Cedar 1.009 (1.001-1.035) Urine Protein Negative (Negative) Urine Glucose (UA) Negative (Negative) Urine Ketones Negative (Negative) Urine Blood Negative (Negative) Urine Nitrite Negative (Negative) Urine Bilirubin Negative (Negative) Urine Urobilinogen <2.0 (<2.0) mg/dL Ur Leukocyte Esterase Negative (Negative) Urine Opiates Screen Not Detected (NotDetected) Ur Oxycodone Screen Not Detected (NotDetected) Urine Methadone Screen Not Detected (NotDetected) Ur Propoxyphene Screen Not Detected (NotDetected) Ur Barbiturates Screen Not Detected (NotDetected) U Tricyclic Antidepress Not Detected (NotDetected) Ur Phencyclidine Scrn Not Detected (NotDetected) Ur Amphetamines Screen Not Detected (NotDetected) U Methamphetamines Scrn Not Detected (NotDetected) U Benzodiazepines Scrn Not Detected (NotDetected) Urine Cocaine Screen Not Detected (NotDetected) U Marijuana (THC) Screen Not Detected (NotDetected) Serum Alcohol mg/dL - EKG Data -: EKG Interpreted by Ma EKG shows normal: sinus rhythm (Sinus rhythm with premature supraventricular complexes noted. Rate was 61994 QRS duration 86 QT since QTC 374/436 no acute changes seen.) - Radiology Data Radiology results: report reviewed (The imaging was reviewed there is evidence of sinusitis no acute findings), image reviewed Disposition Clinical Impression: Alcohol intoxication, Chronic sinusitis, Acute confusional state, Fall Disposition: ADMITTED IP TO THIS HOSP Condition: Stable Referrals: Marcio Dowling, PAC [REFERRING] - 1-2 days
[2018-07-07 15:08] LABS: INR 1.1 (<1.2); Partial Thromboplastin Time 24.6 sec (22.0-30.0); Prothrombin Time 10.7 sec (9.0-12.0)
[2018-07-07 15:12] LABS: Basophils % (A) 1 %; Eosinophils # (A) 0.2 k/uL (0-0.7); Eosinophils % (A) 3 %; HCT 40.9 % (39.0-53.0); HGB 13.5 gm/dL (13.0-17.5); Lymphocytes # (A) 1.7 k/uL (1.0-4.8); Lymphocytes % (A) 27 %; MCH 30.3 pg (25.0-35.0); MCV 91.7 fL (80.0-100.0); Mean Platelet Volume 6.9; Monocytes # (A) 0.3 k/uL (0-1.0); Monocytes % (A) 6 %; Neutrophils # (A) 3.7 k/uL (1.3-7.7); Neutrophils % (A) 60 %; Platelet Count 198 k/uL (150-450); RBC 4.46 m/uL (4.30-5.90); RDW 13.2 % (11.5-15.5); WBC 6.1 k/uL (3.8-10.6)
[2018-07-07 15:15] LABS: Appearance,Urine Clear (Clear); Bilirubin,Urine Negative (Negative); Blood,Urine Negative (Negative); Color,Urine Light Yellow; Glucose,Urine (UA) Negative (Negative); Ketones,Urine Negative (Negative); Leukocyte Esterase,Urine Negative (Negative); Nitrite,Urine Negative (Negative); Protein,Urine Negative (Negative); Specific Gravity,Urine 1.009 (1.001-1.035); Urobilinogen,Urine <2.0 mg/dL (<2.0)
[2018-07-07 15:21] LABS: ALT 26 U/L (21-72); AST 28 U/L (17-59); Albumin 4.2 g/dL (3.5-5.0); Alkaline Phosphatase 61 U/L (38-126); Anion Gap 13 mmol/L; Blood Urea Nitrogen 24 mg/dL (9-20); Calcium 9.6 mg/dL (8.4-10.2); Carbon Dioxide 25 mmol/L (22-30); Chloride 107 mmol/L (98-107); Glucose 89 mg/dL (74-99); Potassium 4.8 mmol/L (3.5-5.1); Sodium 145 mmol/L (137-145); Total Bilirubin 0.3 mg/dL (0.2-1.3); Total Protein 7.6 g/dL (6.3-8.2)
[2018-07-07 15:25] LABS: Alcohol 286 mg/dL
[2018-07-07 15:26] LABS: Amphetamine Screen,Urine Not Detected (NotDetected); Barbiturate Screen,Urine Not Detected (NotDetected); Benzodiazepines Screen,Urine Not Detected (NotDetected); Cocaine Screen,Urine Not Detected (NotDetected); Methadone Screen, Urine Not Detected (NotDetected); Opiate Screen,Urine Not Detected (NotDetected); Oxycodone Screen, Urine Not Detected (NotDetected); Phencyclidine Screen,Urine Not Detected (NotDetected); Tricyclic Antidepressant,Urine Not Detected (NotDetected); Urn Cannabinoid Scrn Not Detected (NotDetected)
[2018-07-07 15:28] LABS: Creatine Kinase 53 U/L (55-170)
[2018-07-07 15:40] LABS: Creatine Kinase MB 0.7 ng/mL (0.0-2.4); Troponin I <0.012 ng/mL (0.000-0.034)
--- NOTE | 2018-07-07 15:48 | CT ---
EXAMINATION TYPE: CT brain edgardoine wo con DATE OF EXAM: 07/07/2018 COMPARISON: 01/11/2017 HISTORY: Pt found unresponsive. Head and neck pain. CT DLP: 1493.6 mGycm. Automated Exposure Control for Dose Reduction was Utilized. TECHNIQUE: CT scan of the head and cervical spine are performed without contrast. FINDINGS: There is no acute intracranial hemorrhage, mass effect, or midline shift identified. Ther e are subtle patchy areas of hypoattenuation in the frontal lobes that are Well seen such as on axial image 22 and 20. These are not well appreciated on the prior. Old lacunar injury seen of the genu of the right internal capsule. Dense calcifications are noted along the falx cerebri. No acute intracranial hemorrhage or midline shift is seen. The ventricles and sulci are with in normal limits in size. The globes are unremarkable. There is complete opacification of the right maxillary sinus with chronic mucoperiosteal thickening and high density internally as well as calcifi cation suggesting chronic etiology and possible fungal disease. Remaining paranasal sinuses are well aerated as visualized. Mastoid air cells are unremarkable. Calvarium is intact. In comparison to the prior exam of 01/11/2017 there is poor definition of the peripheral sulci and the watershed distribution of the parietal-occipital region on image 31. Given the patient's was found un responsive developing watershed infarcts are possible. Cervical spine is visualized in its entirety from C1 through upper thoracic levels and demonstrates s atisfactory alignment without evidence of acute fracture or dislocation. Prevertebral soft tissue ap pears within normal limits. Postsurgical changes are seen of the cervical spine with surgically fixat ed malalignment at C7-T1 and destruction of the anterior vertebral body at T1 with cortical bridging throughout the cervical spine suggestive of diffuse idiopathic skeletal hyperostosis. Severe degenera tive changes are also seen throughout. Evaluation of the spinal canal is limited on CT. Findings appe ar similar to exam of 01/11/2017. The C1-C2 articulation is unremarkable. Thyroid gland is diffusely h eterogenous with asymmetric enlargement of the right lobe and internal calcifications. IMPRESSION: 1. There is no acute fracture or dislocation evident in the cervical spine. 2. No acute intracranial hemorrhage, mass effect, or midline shift is seen. Subtle findings of bifron kimberly patchy hypoattenuation and poor definition of the nixon-white junction in the watershed zones. Giv en the patient was found unresponsive developing infarcts are possible and MRI could further evaluate these findings. 3. Complex right maxillary near-complete opacification indicative of chronic right maxillary sinusiti s with possible fungal etiology given the internal high density. 4. Postsurgical change of the cervical spine, surgically fixated malalignment of the cervical spine, and diffuse degenerative change suggesting diffuse idiopathic skeletal hyperostosis. Findings appear similar to the prior of 01/11/2017.
--- NOTE | 2018-07-07 16:11 | XR ---
EXAMINATION TYPE: XR chest 2V DATE OF EXAM: 07/07/2018 COMPARISON: 01/22/2017 INDICATION: Hypertension TIA TECHNIQUE: Frontal and lateral views of the chest are obtained. FINDINGS: The heart size is normal. The pulmonary vasculature is normal. Minimal subsegmental atelectasis may be at the lung bases. Degenerative changes are noted at the left shoulder.. Postsurgical changes are within the cervical spine. IMPRESSION: 1. Mild bibasilar subsegmental atelectasis. Early pneumonia could be considered.
[2018-07-07] MEDS ORDERED: NALOXONE 0.4 MG/ML 1 ML VIAL IV PRN (18:01)
[2018-07-07] MEDS ORDERED: LORazepam 2 MG/ML INJ IV STA (18:03)
[2018-07-07] MEDS ORDERED: LORazepam 2 MG/ML INJ IV PRN ×3 (18:03)
[2018-07-07] MEDS ORDERED: THIAMINE 100 MG/ML 2 ML VIAL IM STA (18:03)
[2018-07-07] MEDS ORDERED: DIPH,PERTUS(ACELL)TETVAC-LF 0.5 ML VIAL IM ONE (18:03)
[2018-07-07] MEDS: THIAMINE 100 MG TAB PO SCH (18:12)
--- NOTE | 2018-07-07 19:51 | P.HPIM ---
History of Present Illness H&P Date: 07/07/18 Chief Complaint: Acute confusional state Mr. Silva is an 82-year-old male with a past medical history of hypertension, CVA with right-sided facial droop brought into the hospital as he was found lying on the floor with his head down in his assisted living facility. Patient is known to have history of alcohol abuse and there was a vodka bottle at his bedside and does smell of alcohol on his breath per paramedics. Patient is a very poor historian due to his underlying dementia. Most of the history is taken from the ED notes. Patient has past medical history of dementia and congestive heart failure. In the ED he had a CT of the cervical spine and neck that was negative for fracture or dislocation of the cervical spine. No acute intracranial hemorrhage or mass effect or midline shift. Review of systems- altered review of systems could not be done as the patient is confused. But patient denied having any chest pain and difficulty in breathing. No abdominal pain nausea vomiting or diarrhea. No dysuria or hematuria. Past Medical History Past Medical History: Cancer, CVA/TIA, Dementia, Hypertension, Prostate Disorder Additional Past Medical History / Comment(s): 10/07/14 Pt presented to [facility] ER with C/o Diplopia starting 10/05/14. He states he got up to use the bathroom Sat nite into Tuesday and noticed double vision at that time. The double vision was making. it difficult to walk. Other HX: PROSTATE CANCER with removal, R foot 5th toe redness and edema "getting better". Bilateral tinnitis, Hemorrhiods History of Any Multi-Drug Resistant Organisms: None Reported Additional Past Surgical History / Comment(s): NECK SURGERY AND PROSTATE REMOVED , bilateral cataract removal with lens implants. Past Anesthesia/Blood Transfusion Reactions: No Reported Reaction Past Psychological History: No Psychological Hx Reported Additional Psychological History / Comment(s): Pt lives alone in his own home. Pt is normally independent. He drives a car. Smoking Status: Former smoker Past Alcohol Use History: None Reported Past Drug Use History: None Reported - Past Family History Father Family Medical History: Diabetes Mellitus Additional Family Medical History / Comment(s): Father may have had cancer but pt is not certain. Mother Family Medical History: Cancer Medications and Allergies Home Medications Medication Instructions Recorded Confirmed Type Ergocalciferol [Vitamin D2] 50,000 unit PO Q7D 07/07/18 07/07/18 History Lisinopril-Hctz 20-25 mg 1 tab PO DAILY 07/07/18 07/07/18 History [Zestoretic 20-25] Simvastatin [Zocor] 20 mg PO HS 07/07/18 07/07/18 History Allergies Allergy/AdvReac Type Severity Reaction Status Date / Time No Known Allergies Allergy Verified 07/07/18 14:40 Physical Exam Vitals: Vital Signs Temp Pulse Pulse Resp BP BP Pulse Ox 07/07/18 19:34 97.5 F L 90 18 146/87 96 07/07/18 18:30 90 18 150/91 07/07/18 18:00 90 17 124/75 07/07/18 17:30 92 18 141/91 07/07/18 17:00 87 16 135/88 07/07/18 16:40 17 135/88 98 07/07/18 14:26 97.6 F 87 18 136/80 99 Intake and Output 07/07/18 07/07/18 07/07/18 06:59 14:59 22:59 Other: Weight 83.915 kg 93.667 kg GENERAL EXAM GEN. APPEARANCE: No acute distress HEAD EXAM: Laceration of the scalp in the occipital region EYE EXAM: No pallor. No icterus ENT EXAM: normal exam, mucous membranes moist NECK EXAM: Trachea is central. No thyromegaly RESPIRATORY EXAM: normal lung sounds bilaterally. Absent: respiratory distress , wheezes, rales, rhonchi, stridor CARDIOVASCULAR EXAM: S1 and S2 heard. GI/ABDOMINAL EXAM: soft, normal bowel sounds. Absent: distended, tenderness, guarding, rebound, rigid EXTREMITIES EXAM: No edema. NEUROLOGICAL EXAM: and is awake. He is not oriented to time or place. He came me his name and date of . Results CBC & Chem 7: 07/07/18 14:32 07/07/18 14:32 Labs: Abnormal Lab Results - Last 24 Hours (Table) 07/07/18 07/07/18 Range/Units 14:32 14:32 BUN 24 H (9-20) mg/dL Total Creatine Kinase 53 L (55-170) U/L Serum Alcohol 286 H* mg/dL Assessment and Plan Assessment: Assessment Encephalopathy-secondary to alcohol intoxication Scalp laceration secondary to a fall History of stroke with right-sided facial droop Dementia Hypertension Prostrated disorder History of neck surgery Plan: Start the patient on thiamine. We'll monitor him for delirium tremens. We'll resume his home medications. Further recommendations to follow depending on the progress of the patient.
[2018-07-07] MEDS ORDERED: ERGOCALCIFEROL 50,000 UNIT CAP PO SCH (20:00)
[2018-07-07 21:59] VITALS: BMI 29.8
[2018-07-08] MEDS: ATORVASTATIN 10 MG TAB PO SCH ×2 (00:15→19:57)
[2018-07-08] MEDS: ENOXAPARIN 40 MG/0.4 ML SYRINGE SQ SCH (07:53)
[2018-07-08] MEDS: LISINOPRIL-HCTZ 20-25 MG 1 EACH TAB PO SCH (08:44)
[2018-07-08 09:00] LABS: Basophils # (A) 0.1 k/uL (0-0.2); Basophils % (A) 1 %; Eosinophils # (A) 0.1 k/uL (0-0.7); Eosinophils % (A) 1 %; HCT 43.9 % (39.0-53.0); HGB 14.1 gm/dL (13.0-17.5); Lymphocytes # (A) 0.9 k/uL (1.0-4.8); Lymphocytes % (A) 10 %; MCH 30.1 pg (25.0-35.0); MCHC 32.1 g/dL (31.0-37.0); MCV 93.8 fL (80.0-100.0); Monocytes # (A) 0.4 k/uL (0-1.0); Monocytes % (A) 5 %; Neutrophils # (A) 6.7 k/uL (1.3-7.7); Neutrophils % (A) 81 %; Platelet Count 234 k/uL (150-450); RBC 4.68 m/uL (4.30-5.90); RDW 13.3 % (11.5-15.5); WBC 8.2 k/uL (3.8-10.6)
[2018-07-08 09:24] LABS: Anion Gap 19 mmol/L; Blood Urea Nitrogen 26 mg/dL (9-20); Calcium 9.4 mg/dL (8.4-10.2); Carbon Dioxide 18 mmol/L (22-30); Chloride 107 mmol/L (98-107); Glucose 80 mg/dL (74-99); Potassium 4.6 mmol/L (3.5-5.1); Sodium 144 mmol/L (137-145)
--- NOTE | 2018-07-08 11:18 | P.PN ---
Subjective Progress Note Date: 07/08/18 Principal diagnosis: Encephalopathy due to Alcohol intoxication Mr. Silva is an 82-year-old male with a past medical history of hypertension, CVA with right-sided facial droop brought into the hospital as he was found lying on the floor with his head down in his assisted living facility. Patient is known to have history of alcohol abuse and there was a vodka bottle at his bedside and does smell of alcohol on his breath per paramedics. Patient is a very poor historian due to his underlying dementia. Most of the history is taken from the ED notes.Patient has past medical history of dementia and congestive heart failure. In the ED he had a CT of the cervical spine and neck that was negative for fracture or dislocation of the cervical spine. No acute intracranial hemorrhage or mass effect or midline shift. Today the patient is sitting up in a chair by the bedside. As per the nursing staff report patient does much oriented compared to yesterday. He states that he has the habit of drinking and frequent falls at home because of it. Patient vaguely remembers what happened yesterday. But this morning she is much more with it. Patient denies having any chest pain or palpitations. He denies having any cough or difficulty breathing. No abdominal pain nausea vomiting or diarrhea. No dysuria or hematuria. He states that he has some tenderness on his scalp where he had the laceration because of the fall. Objective - Vital Signs Vital signs: Vital Signs Temp 97.6 F 07/08/18 07:03 Pulse 125 H 07/08/18 07:03 Resp 18 07/08/18 07:03 BP 154/97 07/08/18 07:03 Pulse Ox 96 07/08/18 07:03 Intake & Output 07/07/18 07/08/18 07/08/18 18:59 06:59 18:59 Intake Total 1500 Balance 1500 Weight 83.915 kg 94.347 kg Intake: Oral 1500 Other: Voiding Method Toilet Urinal # Voids 2 - Exam GEN. APPEARANCE: No acute distress HEAD EXAM: Laceration of the scalp in the occipital region EYE EXAM: No pallor. No icterus ENT EXAM: normal exam, mucous membranes moist NECK EXAM: Trachea is central. No thyromegaly RESPIRATORY EXAM: normal lung sounds bilaterally. Absent: respiratory distress , wheezes, rales, rhonchi, stridor CARDIOVASCULAR EXAM: S1 and S2 heard. GI/ABDOMINAL EXAM: soft, normal bowel sounds. Absent: distended, tenderness, guarding, rebound, rigid EXTREMITIES EXAM: No edema. NEUROLOGICAL EXAM: Alert oriented 2. - Labs CBC & Chem 7: 07/08/18 08:41 07/08/18 08:41 Labs: Abnormal Lab Results - Last 24 Hours (Table) 07/07/18 07/07/18 07/08/18 Range/Units 14:32 14:32 08:41 Lymphocytes # 0.9 L (1.0-4.8) k/uL Carbon Dioxide (22-30) mmol/L BUN 24 H (9-20) mg/dL Total Creatine Kinase 53 L (55-170) U/L Serum Alcohol 286 H* mg/dL 07/08/18 Range/Units 08:41 Lymphocytes # (1.0-4.8) k/uL Carbon Dioxide 18 L (22-30) mmol/L BUN 26 H (9-20) mg/dL Total Creatine Kinase (55-170) U/L Serum Alcohol mg/dL Assessment and Plan Assessment: Assessment Encephalopathy-secondary to alcohol intoxication Scalp laceration secondary to a fall History of stroke with right-sided facial droop Dementia Hypertension Prostrated disorder History of neck surgery Plan: Patient is more oriented today compared to yesterday. Continue with thiamine and his home medications. We'll monitor him for delirium tremens. Further recommendations to follow depending on the progress of the patient.
[2018-07-08] MEDS: THIAMINE 100 MG TAB PO SCH ×2 (11:47→17:20)
[2018-07-08] MEDS ORDERED: METOPROLOL TARTRATE 25 MG TAB PO STA (11:49)
[2018-07-09] MEDS: ENOXAPARIN 40 MG/0.4 ML SYRINGE SQ SCH (08:44)
[2018-07-09] MEDS: LISINOPRIL-HCTZ 20-25 MG 1 EACH TAB PO SCH (08:44)
[2018-07-09 09:33] VITALS: BP 142/92; PULSE 91; RESP 16; TEMP 97.7
[2018-07-09] MEDS: THIAMINE 100 MG TAB PO SCH (11:03)
--- NOTE | 2018-07-09 11:33 | P.DS ---
Providers Date of admission: 07/07/18 18:01 Expected date of discharge: 07/09/18 Attending physician: Ravi Hurt MD Primary care physician: [facility] Hospital Course: HPI - Mr. Silva is an 82-year-old male with a past medical history of hypertension, CVA with right-sided facial droop brought into the hospital as he was found lying on the floor with his head down in his assisted living facility. Patient is known to have history of alcohol abuse and there was a vodka bottle at his bedside and does smell of alcohol on his breath per paramedics. Patient is a very poor historian due to his underlying dementia. Most of the history is taken from the ED notes.Patient has past medical history of dementia and congestive heart failure. In the ED he had a CT of the cervical spine and neck that was negative for fracture or dislocation of the cervical spine. No acute intracranial hemorrhage or mass effect or midline shift.Review of systems- altered review of systems could not be done as the patient is confused. But patient denied having any chest pain and difficulty in breathing. No abdominal pain nausea vomiting or diarrhea. No dysuria or hematuria. Hospital course-patient was admitted with alcohol intoxication with an alcohol level of 286. He was pretty much confused for 24 hours. After his alcohol level has been wearing off his mentation has been back to his baseline. Patient has a small scalp laceration that did not require any sutures that has been causing some blood. No active bleeding noticed. Patient was given thiamine supplements during the hospital stay and resume his home medications. Patient is back to his baseline and request that he be sent back to his assisted living facility today by a cab. Patient's vitals at the time of discharge temperature 97.7, heart rate 91, respiratory rate 16, blood pressure 142.92, saturating at 92% on room air. GEN. APPEARANCE: No acute distress HEAD EXAM: Laceration of the scalp in the occipital region, parietal area - no active bleeding noted. EYE EXAM: No pallor. No icterus ENT EXAM: normal exam, mucous membranes moist NECK EXAM: Trachea is central. No thyromegaly RESPIRATORY EXAM: normal lung sounds bilaterally. Absent: respiratory distress , wheezes, rales, rhonchi, stridor CARDIOVASCULAR EXAM: S1 and S2 heard. GI/ABDOMINAL EXAM: soft, normal bowel sounds. Absent: distended, tenderness, guarding, rebound, rigid EXTREMITIES EXAM: No edema. NEUROLOGICAL EXAM: Alert oriented 2. DISCHARGE DIAGNOSIS Encephalopathy-secondary to alcohol intoxication Scalp laceration secondary to a fall History of stroke with right-sided facial droop Dementia Hypertension Prostrated disorder History of neck surgery Plan - the patient is being discharged to his assisted living facility today in a stable condition. Patient is advised to follow up with his PCP at [facility] in the next 3-4 days. Patient Condition at Discharge: Stable Plan - Discharge Summary New Discharge Prescriptions: New Folic Acid 1 mg PO DAILY #30 tablet Thiamine [Vitamin B-1] 100 mg PO BID@1200,1700 #30 tab Continue Ergocalciferol [Vitamin D2 (DRISDOL)] 50,000 unit PO Q7D Lisinopril-Hctz 20-25 mg [Zestoretic 20-25] 1 tab PO DAILY Simvastatin [Zocor] 20 mg PO HS Discharge Medication List Ergocalciferol [Vitamin D2 (DRISDOL)] 50,000 unit PO Q7D 07/07/18 [History] Lisinopril-Hctz 20-25 mg [Zestoretic 20-25] 1 tab PO DAILY 07/07/18 [History] Simvastatin [Zocor] 20 mg PO HS 07/07/18 [History] Folic Acid 1 mg PO DAILY #30 tablet 07/09/18 [Rx] Thiamine [Vitamin B-1] 100 mg PO BID@1200,1700 #30 tab 07/09/18 [Rx] Follow up Appointment(s)/Referral(s): Marcio Dowling, [facility] [REFERRING] - 1-2 days
== END 2018-07-09 12:52 | disposition home or self-care (01) ==
LOC: EC 14:13 → 4SSUR 18:01 → 4MS4W 18:35
PROVIDERS: ADMIT Internal Medicine; ATTEND Internal Medicine
DX: F10.129 Alcohol abuse with intoxication, unspecified (principal); G31.2 Degeneration of nervous system due to alcohol; J32.0 Chronic maxillary sinusitis; I69.992 Facial weakness following unspecified cerebrovascular disease; I11.0 Hypertensive heart disease with heart failure; I50.9 Heart failure, unspecified; F03.90 Unspecified dementia, unspecified severity, without behavioral disturbance, psychotic disturbance, mood disturbance, and anxiety; S01.01XA Laceration without foreign body of scalp, initial encounter; Y90.8 Blood alcohol level of 240 mg/100 ml or more; Z79.899 Other long term (current) drug therapy; Z85.46 Personal history of malignant neoplasm of prostate; Z98.42 Cataract extraction status, left eye; Z98.41 Cataract extraction status, right eye; Z96.1 Presence of intraocular lens; Z90.79 Acquired absence of other genital organ(s); Z87.891 Personal history of nicotine dependence; Z83.3 Family history of diabetes mellitus; Z80.9 Family history of malignant neoplasm, unspecified; Z23 Encounter for immunization; W19.XXXA Unspecified fall, initial encounter; Y92.099 Unspecified place in other non-institutional residence as the place of occurrence of the external cause
CPT/HCPCS: 96361 ×3; 96372 ×3; 96374; 99285; 36415; 93005; 80053; 80048; 82140; 82550; 82553; 84484; 85025 ×2; 85610; 85730; 81003; 80306; 71046; 72125; 70450; 90715; G0378 ×3; G0480; J2060; J3411; J1650 ×2; 80320

== ENCOUNTER 2019-04-24 15:49 | Observation (INO) | payer MEDICARE ==
[2019-04-24] MEDS ORDERED: DIPH,PERTUS(ACELL)TETVAC-LF 0.5 ML VIAL IM ONE (16:00)
--- NOTE | 2019-04-24 16:03 | ED ---
General Adult HPI <Reese Walker - Last Filed: 04/24/19 18:19> <Roman Null - Last Filed: 05/20/19 16:46> - General Stated complaint: Fall Time Seen by Provider: 04/24/19 16:00 - History of Present Illness Initial comments: Dictation was produced using [employer] dictation software. please excuse any grammatical, word or spelling errors. Chief Complaint: 83-year-old male brought in by EMS for fall. History of Present Illness: 83-year-old male he has past medical history of cancer CVA dementia and hypertension. Presents today after fall. Patient states he was drinking heavily today. He drank multiple ounces of vodka. Patient is a poor historian at this time. According EMS he fell. He lives at this is a living facility. Patient denies any pain symptoms at this time. When I point to the abrasions to his hand he reports that he does not know he got those. He denies any pain. The ROS documented in this emergency department record has been reviewed and confirmed by me. Those systems with pertinent positive or negative responses have been documented in the HPI. All other systems are other negative and/or noncontributory. PHYSICAL EXAM: General Impression: Alert and oriented x3, not in acute distress HEENT: Superficial abrasions to the anterior forehead, extra-ocular movements in tact, pinpoint pupils, pupils equal and reactive to light bilaterally, mucous membranes moist. Cardiovascular: Heart regular rate and rhythm, S1&S2 audible, no murmurs, rubs or gallops Chest: Lungs clear to auscultation bilaterally, no rhonchi, no wheeze, no rales Abdomen: Bowel sounds present, abdomen soft, non-tender, non-distended, no organomegaly Musculoskeletal: Pulses present and equal in all extremities, no peripheral edema Motor: no focal deficits noted Neurological: CN II-XII grossly intact, no focal motor or sensory deficits noted Skin: Superficial abrasions to the left dorsal hand Psych: Normal affect and mood ED course: 83-year-old male presents with decreased intoxication and fall. It is unclear whether the patient's fall was witnessed or not. EMS is not at the bedside currently. Patient care was signed out to Dr. Walker following evaluation and final disposition. EKG interpretation: Ventricular rate 79, sinus rhythm with PACs, RI interval 166, QRS 86, QTC 447. No RI prolongation, no QTC prolongation, no ST or T-wave changes noted. Overall, this EKG is unremarkable (Roman Null) - Related Data Home Medications Medication Instructions Recorded Confirmed Lisinopril-Hctz 20-25 mg 1 tab PO DAILY 07/07/18 04/24/19 [Zestoretic 20-25] Naproxen Sodium [Aleve] 220 mg PO DAILY PRN 04/24/19 04/24/19 Previous Rx's Medication Instructions Recorded Ranitidine HCl [Zantac] 150 mg PO BID #20 tab 04/25/19 Allergies Allergy/AdvReac Type Severity Reaction Status Date / Time No Known Allergies Allergy Verified 04/24/19 17:02 Review of Systems ROS Other: All systems not noted in ROS Statement are negative. <Reese Walker - Last Filed: 04/24/19 18:19> ROS Other: All systems not noted in ROS Statement are negative. <Roman Null - Last Filed: 05/20/19 16:46> ROS Statement: Those systems with pertinent positive or pertinent negative responses have been documented in the HPI. Past Medical History Past Medical History: Cancer, CVA/TIA, Dementia, Hypertension, Prostate Disorder Additional Past Medical History / Comment(s): 10/07/14 Pt presented to [facility] ER with C/o Diplopia starting 10/05/14. He states he got up to use the bathroom Sat nite into Tuesday and noticed double vision at that time. The double vision was making. it difficult to walk. Other HX: PROSTATE CANCER with removal, R foot 5th toe redness and edema "getting better". Bilateral tinnitis, Hemorrhiods History of Any Multi-Drug Resistant Organisms: None Reported Additional Past Surgical History / Comment(s): NECK SURGERY AND PROSTATE REMOVED, bilateral cataract removal with lens implants. Past Anesthesia/Blood Transfusion Reactions: No Reported Reaction Smoking Status: Former smoker - Past Family History Father Family Medical History: Diabetes Mellitus Additional Family Medical History / Comment(s): Father may have had cancer but pt is not certain. Mother Family Medical History: Cancer <Roman Null - Last Filed: 05/20/19 16:46> Course Vital Signs 04/24/19 04/24/19 04/24/19 15:54 17:00 18:00 Temperature 98.3 F Pulse Rate 83 86 87 Respiratory 20 18 20 Rate Blood Pressure 156/78 139/71 157/96 O2 Sat by Pulse 97 99 99 Oximetry 04/24/19 19:00 Temperature 98.9 F Pulse Rate 98 Respiratory 17 Rate Blood Pressure 153/93 O2 Sat by Pulse 97 Oximetry Medical Decision Making - Lab Data Result diagrams: 04/24/19 17:06 04/24/19 17:06 <Reese Walker - Last Filed: 04/24/19 18:19> - Lab Data Result diagrams: 04/24/19 17:06 04/25/19 06:57 <Roman Null - Last Filed: 05/20/19 16:46> - Medical Decision Making The patient was seen and examined. He was received from previous shift. His laboratory does show a degree of hyperkalemia and he will receive Kayexalate in this regard. His other labs were essentially unremarkable other than his alcohol level. His computed tomography scan of his brain and cervical spine do es not show any acute process. He also had x-rays of his knees hips pelvis and chest region. This does not show any acute process but he does have significant arthritic problems. His alcohol came back significantly elevated at around 270. Due to his age, alcohol intoxication, and falls, it is felt as though he benefit from admission to the hospital. The patient is agreeable to this plan. The case is discussed with Dr. Gifford and he is agreeable with admission. (Reese Walker) - Lab Data Lab Results 04/24/19 04/24/19 04/24/19 Range/Units 17:06 17:06 17:06 WBC 6.7 (3.8-10.6) k/uL RBC 4.39 (4.30-5.90) m/uL Hgb 13.6 (13.0-17.5) gm/dL Hct 41.2 (39.0-53.0) % MCV 93.8 (80.0-100.0) fL MCH 31.0 (25.0-35.0) pg MCHC 33.1 (31.0-37.0) g/dL RDW 13.8 (11.5-15.5) % Plt Count 324 (150-450) k/uL Neutrophils % 63 % Lymphocytes % 26 % Monocytes % 4 % Eosinophils % 3 % Basophils % 1 % Neutrophils # 4.2 (1.3-7.7) k/uL Lymphocytes # 1.8 (1.0-4.8) k/uL Monocytes # 0.3 (0-1.0) k/uL Eosinophils # 0.2 (0-0.7) k/uL Basophils # 0.1 (0-0.2) k/uL PT 10.0 (9.0-12.0) sec INR 0.9 (<1.2) APTT 23.9 (22.0-30.0) sec Sodium 144 (137-145) mmol/L Potassium 5.8 H (3.5-5.1) mmol/L Chloride 105 (98-107) mmol/L Carbon Dioxide 23 (22-30) mmol/L Anion Gap 16 mmol/L BUN 33 H (9-20) mg/dL Creatinine 1.08 (0.66-1.25) mg/dL Est GFR (CKD-EPI)AfAm 73 (>60 ml/min/1.73 sqM) Est GFR (CKD-EPI)NonAf 63 (>60 ml/min/1.73 sqM) Glucose 78 (74-99) mg/dL Calcium 9.6 (8.4-10.2) mg/dL Total Bilirubin 0.6 (0.2-1.3) mg/dL AST 36 (17-59) U/L ALT 12 L (21-72) U/L Alkaline Phosphatase 100 (38-126) U/L Troponin I (0.000-0.034) ng/mL Total Protein 8.5 H (6.3-8.2) g/dL Albumin 4.8 (3.5-5.0) g/dL Serum Alcohol 275 H* mg/dL 04/24/19 Range/Units 17:06 WBC (3.8-10.6) k/uL RBC (4.30-5.90) m/uL Hgb (13.0-17.5) gm/dL Hct (39.0-53.0) % MCV (80.0-100.0) fL MCH (25.0-35.0) pg MCHC (31.0-37.0) g/dL RDW (11.5-15.5) % Plt Count (150-450) k/uL Neutrophils % % Lymphocytes % % Monocytes % % Eosinophils % % Basophils % % Neutrophils # (1.3-7.7) k/uL Lymphocytes # (1.0-4.8) k/uL Monocytes # (0-1.0) k/uL Eosinophils # (0-0.7) k/uL Basophils # (0-0.2) k/uL PT (9.0-12.0) sec INR (<1.2) APTT (22.0-30.0) sec Sodium (137-145) mmol/L Potassium (3.5-5.1) mmol/L Chloride (98-107) mmol/L Carbon Dioxide (22-30) mmol/L Anion Gap mmol/L BUN (9-20) mg/dL Creatinine (0.66-1.25) mg/dL Est GFR (CKD-EPI)AfAm (>60 ml/min/1.73 sqM) Est GFR (CKD-EPI)NonAf (>60 ml/min/1.73 sqM) Glucose (74-99) mg/dL Calcium (8.4-10.2) mg/dL Total Bilirubin (0.2-1.3) mg/dL AST (17-59) U/L ALT (21-72) U/L Alkaline Phosphatase (38-126) U/L Troponin I <0.012 (0.000-0.034) ng/mL Total Protein (6.3-8.2) g/dL Albumin (3.5-5.0) g/dL Serum Alcohol mg/dL Disposition Is patient prescribed a controlled substance at d/c from ED?: No Time of Disposition: 18:21 Decision Date: 04/24/19 Decision Time: 18:22 <Reese Walker - Last Filed: 04/24/19 18:19> <Roman Null - Last Filed: 05/20/19 16:46> Clinical Impression: Fall, Alcohol intoxication, Hyperkalemia, Abrasion, Head injury, Multiple contusions Disposition: ADMITTED IP TO THIS HOSP Condition: Fair
--- NOTE | 2019-04-24 16:34 | XR ---
EXAMINATION TYPE: XR chest 1V portable DATE OF EXAM: 04/24/2019 Comparison: 07/07/2018 Clinical History: 83-year-old male pain after fall, trauma Findings: Posterior cervical fusion hardware. Heart borderline enlarged. Diffuse interstitial prominence is unc hanged. No consolidation, pneumothorax, or sizable effusion. End-stage degenerative change at the lef t shoulder and suggestion of a full-thickness rotator cuff tear at the right shoulder. Impression: Borderline heart size and chronic changes. No acute process seen.
--- NOTE | 2019-04-24 16:36 | CT ---
EXAMINATION: CT brain wo con DATE AND TIME: 04/24/2019 4:19 PM CLINICAL INDICATION: [facility]; trauma TECHNIQUE: Standard departmental protocol.; 1217.4; COMPARISON: 07/07/2018 FINDINGS: The calvarium is intact. There is no intracranial hemorrhage. There is no intracranial mass or mass effect. No definite new intra-axial or extra-axial attenuation defect. Right maxillary sinus shows approximately 85% opacification, which can correlate with a clinical diag nosis of right maxillary sinusitis. Remainder of the paranasal sinuses, middle ear cavities, and mast oid sinus air cells are clear. The orbits are unremarkable. IMPRESSION: 1. NO ACUTE/INTRACRANIAL PROCESS. 2. Right maxillary sinus partial opacification.
--- NOTE | 2019-04-24 16:36 | XR ---
EXAMINATION TYPE: XR pelvis AP view DATE OF EXAM: 04/24/2019 COMPARISON: NONE HISTORY: 83-year-old male with pain after fall FINDINGS: Degenerative changes lumbar spine. Small delineation to the arcuate lines of the sacrum. SI joints an d pubic symphysis appear intact. Moderate degenerative change at the right hip and mild at the left h ip. Osteopenia. No acute fracture is identified. Multiple surgical clips along the pelvic sidewall. 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 No acute osseous abnormality seen.
--- NOTE | 2019-04-24 16:56 | XR ---
EXAMINATION TYPE: XR knee complete bilateral DATE OF EXAM: 04/24/2019 COMPARISON: NONE HISTORY: 83-year-old male with pain after fall TECHNIQUE: 3 views each side FINDINGS: There is tricompartmental degenerative spurring on both sides. Mild anterior soft tissue swelling on the left. Extensor mechanisms appear intact. No significant joint effusions. No acute fracture, sublu xation, or dislocation seen. Some type of small retained metallic density within the upper leg soft t issues on the right. IMPRESSION: Tricompartmental degenerative spurring. Mild anterior soft tissue swelling on the left. No acute osse ous abnormality seen.
--- NOTE | 2019-04-24 17:03 | CT ---
EXAMINATION TYPE: CT cervical spine wo con DATE OF EXAM: 04/24/2019 COMPARISON: 218 HISTORY: pain CT DLP: 431.2 mGycm Automated exposure control for dose reduction was used. TECHNIQUE: CT scan of the cervical spine is obtained without contrast, axial images are obtained, sa gittal and coronal reformatted images are also reviewed. FINDINGS: The orthopedic hardware is intact. No periprosthesis lucencies. Cervical spine is visualize d in its entirety from C1 through upper thoracic levels, demonstrates satisfactory alignment without evidence of acute fracture or dislocation. The C1-C2 articulation is within normal limits on the marija nal images. Prevertebral soft tissue appears within normal limits. Substernal thyroid component noted, arising from the caudal right thyroid lobe. IMPRESSION: No acute process.
[2019-04-24 17:26] LABS: Basophils # (A) 0.1 k/uL (0-0.2); Basophils % (A) 1 %; Eosinophils # (A) 0.2 k/uL (0-0.7); Eosinophils % (A) 3 %; HCT 41.2 % (39.0-53.0); HGB 13.6 gm/dL (13.0-17.5); Lymphocytes # (A) 1.8 k/uL (1.0-4.8); Lymphocytes % (A) 26 %; MCHC 33.1 g/dL (31.0-37.0); MCV 93.8 fL (80.0-100.0); Mean Platelet Volume 7.1; Monocytes # (A) 0.3 k/uL (0-1.0); Monocytes % (A) 4 %; Neutrophils # (A) 4.2 k/uL (1.3-7.7); Neutrophils % (A) 63 %; Platelet Count 324 k/uL (150-450); RBC 4.39 m/uL (4.30-5.90); RDW 13.8 % (11.5-15.5); WBC 6.7 k/uL (3.8-10.6)
[2019-04-24 17:32] LABS: INR 0.9 (<1.2); Partial Thromboplastin Time 23.9 sec (22.0-30.0)
[2019-04-24 17:34] LABS: Albumin 4.8 g/dL (3.5-5.0); Calcium 9.6 mg/dL (8.4-10.2); Potassium 5.8 mmol/L (3.5-5.1); Total Bilirubin 0.6 mg/dL (0.2-1.3); Total Protein 8.5 g/dL (6.3-8.2)
[2019-04-24] MEDS ORDERED: ACETAMINOPHEN TAB 325 MG TAB PO PRN (18:24)
[2019-04-24] MEDS ORDERED: ONDANSETRON 4 MG/2 ML VIAL IVP PRN (18:24)
[2019-04-24] MEDS ORDERED: NAPROXEN 250 MG TAB PO PRN (18:27)
[2019-04-24] MEDS ORDERED: THIAMINE 100 MG/ML 2 ML VIAL IM STA (18:27)
[2019-04-24] MEDS ORDERED: LORazepam 2 MG/ML INJ IV PRN ×4 (18:27)
[2019-04-24] MEDS ORDERED: SODIUM POLYSTYRENE SULFONATE 15 GM/60 ML BOTTLE PO STA (18:43)
[2019-04-24] MEDS: THIAMINE 100 MG TAB PO SCH (19:06)
[2019-04-24] MEDS: PANTOPRAZOLE 40 MG/10 ML VIAL IV SCH (19:06)
[2019-04-24 20:08] VITALS: BMI 25.4
[2019-04-24 22:45] LABS: Appearance,Urine Clear (Clear); Bilirubin,Urine Negative (Negative); Blood,Urine Negative (Negative); Color,Urine Light Yellow; Glucose,Urine (UA) Negative (Negative); Ketones,Urine Negative (Negative); Leukocyte Esterase,Urine Negative (Negative); Nitrite,Urine Negative (Negative); Protein,Urine Negative (Negative); Urobilinogen,Urine <2.0 mg/dL (<2.0)
[2019-04-24 23:27] LABS: Amphetamine Screen,Urine Not Detected (NotDetected); Barbiturate Screen,Urine Not Detected (NotDetected); Benzodiazepines Screen,Urine Not Detected (NotDetected); Cocaine Screen,Urine Not Detected (NotDetected); Methadone Screen, Urine Not Detected (NotDetected); Opiate Screen,Urine Not Detected (NotDetected); Oxycodone Screen, Urine Not Detected (NotDetected); Phencyclidine Screen,Urine Not Detected (NotDetected); Tricyclic Antidepressant,Urine Not Detected (NotDetected); Urn Cannabinoid Scrn Not Detected (NotDetected)
[2019-04-25 08:22] LABS: Calcium 8.9 mg/dL (8.4-10.2); Potassium 4.7 mmol/L (3.5-5.1)
[2019-04-25] MEDS ORDERED: LISINOPRIL-HCTZ 20-25 MG 1 EACH TAB PO SCH (09:00)
[2019-04-25] MEDS ORDERED: MULTIVITAMINS, THERA 1 EACH TAB PO SCH (09:00)
[2019-04-25] MEDS ORDERED: ENOXAPARIN 40 MG/0.4 ML SYRINGE SQ SCH (09:00)
[2019-04-25] MEDS: PANTOPRAZOLE 40 MG/10 ML VIAL IV SCH (10:00)
[2019-04-25] MEDS: THIAMINE 100 MG TAB PO SCH (10:05)
[2019-04-25 10:10] LABS: Glucose,Whole Blood 176 mg/dL (75-99)
[2019-04-25 11:35] LABS: Glucose,Whole Blood 234 mg/dL (75-99)
[2019-04-25 12:00] VITALS: BP 124/72; PULSE 131; RESP 18; TEMP 97.8
--- NOTE | 2019-04-25 12:22 | P.DS ---
Providers Date of admission: 04/24/19 18:24 Attending physician: Marily Gifford Primary care physician: Marcio Scott [facility] Course: Please refer to my HPI Patient Condition at Discharge: Fair Plan - Discharge Summary New Discharge Prescriptions: New Ranitidine HCl [Zantac] 150 mg PO BID #20 tab No Action Lisinopril-Hctz 20-25 mg [Zestoretic 20-25] 1 tab PO DAILY Naproxen Sodium [Aleve] 220 mg PO DAILY PRN PRN Reason: Pain Discharge Medication List Lisinopril-Hctz 20-25 mg [Zestoretic 20-25] 1 tab PO DAILY 07/07/18 [History] Naproxen Sodium [Aleve] 220 mg PO DAILY PRN 04/24/19 [History] Ranitidine HCl [Zantac] 150 mg PO BID #20 tab 04/25/19 [Rx] Patient Instructions/Handouts: Ranitidine (By mouth), Hyperkalemia (DC), Alcohol Intoxication (DC), Abrasion (ED) Discharge Disposition: HOME SELF-CARE
--- NOTE | 2019-04-25 12:22 | P.HPIM ---
History of Present Illness Patient is a pleasant 83-year-old gentleman was admitted for all call intoxication patient does drink alcohol on regular basis patient had some friends and started drinking was intoxicated is asked from the by the ER physician if patient can be monitored overnight because of alcohol intoxication patient was admitted for that reason patient was bit hypoglycemic patient doesn't drink alcohol on regular basis and the patient is not expected to have alcohol withdrawals. Patient hyperglycemia is probably secondary to thiamine supplementation which resolved at this time. Patient will be discharged today. She does have history of cerebral vascular accident in the past and does have dementia is losing assisted living patient does have history of hypertension. Review of Systems REVIEW OF SYSTEMS: CONSTITUTIONAL: No fever, no malaise, no fatigue. HEENT: No recent visual problems or hearing problems. Denied any sore throat. CARDIOVASCULAR: No chest pain, orthopnea, PND, no palpitations, no syncope. PULMONARY: No shortness of breath, no cough, no hemoptysis. GASTROINTESTINAL: No diarrhea, no nausea, no vomiting, no abdominal pain. NEUROLOGICAL: No headaches, no weakness, no numbness. HEMATOLOGICAL: Denies any bleeding or petechiae. GENITOURINARY: Denies any burning micturition, frequency, or urgency. MUSCULOSKELETAL/RHEUMATOLOGICAL: Denies any joint pain, swelling, or any muscle pain. ENDOCRINE: Denies any polyuria or polydipsia. The rest of the 14-point review of systems is negative. Past Medical History Past Medical History: Cancer, CVA/TIA, Dementia, Hypertension, Prostate Disorder Additional Past Medical History / Comment(s): Other HX: PROSTATE CANCER with removal, Bilateral tinnitis, Hemorrhiods History of Any Multi-Drug Resistant Organisms: None Reported Past Surgical History: Orthopedic Surgery, Prostate Surgery Additional Past Surgical History / Comment(s): NECK SURGERY AND PROSTATE REMOVED, bilateral cataract removal with lens implants. Past Anesthesia/Blood Transfusion Reactions: No Reported Reaction Past Psychological History: No Psychological Hx Reported Additional Psychological History / Comment(s): Pt lives alone in an assisted [facility]. Smoking Status: Former smoker Past Alcohol Use History: Daily, Heavy Additional Past Alcohol Use History / Comment(s): patient states he buys a 5th of vodka twice a week on tuesdays and when the bus takes him to [place]. also states that his nephew also buys him alcohol occasionally. Past Drug Use History: None Reported - Past Family History Father Family Medical History: Diabetes Mellitus Additional Family Medical History / Comment(s): Father may have had cancer but pt is not certain. Mother Family Medical History: Cancer Medications and Allergies Home Medications Medication Instructions Recorded Confirmed Type Lisinopril-Hctz 20-25 mg 1 tab PO DAILY 07/07/18 04/24/19 History [Zestoretic 20-25] Naproxen Sodium [Aleve] 220 mg PO DAILY PRN 04/24/19 04/24/19 History Ranitidine HCl [Zantac] 150 mg PO BID #20 tab 04/25/19 Rx Allergies Allergy/AdvReac Type Severity Reaction Status Date / Time No Known Allergies Allergy Verified 04/24/19 17:02 Physical Exam Vitals: Vital Signs Temp Pulse Pulse Resp BP BP Pulse Ox 04/25/19 11:59 97.8 F 131 H 18 124/72 98 04/25/19 05:00 98.1 F 82 20 147/73 95 04/24/19 20:25 97.6 F 92 20 144/84 99 04/24/19 19:00 98.9 F 98 17 153/93 97 04/24/19 18:00 87 20 157/96 99 04/24/19 17:00 86 18 139/71 99 04/24/19 15:54 98.3 F 83 20 156/78 97 Intake and Output 04/24/19 04/25/19 04/25/19 22:59 06:59 14:59 Other: Voiding Method Urinal Urinal Diaper Diaper Incontinent Incontinent # Voids 1 2 Weight 102.058 kg PHYSICAL EXAMINATION: GENERAL: The patient is alert and oriented x3, not in any acute distress. Well developed, well nourished. HEENT: Pupils are round and equally reacting to light. EOMI. No scleral icterus. No conjunctival pallor. Normocephalic, atraumatic. No pharyngeal erythema. No thyromegaly. CARDIOVASCULAR: S1 and S2 present. No murmurs, rubs, or gallops. PULMONARY: Chest is clear to auscultation, no wheezing or crackles. ABDOMEN: Soft, nontender, nondistended, normoactive bowel sounds. No palpable organomegaly. MUSCULOSKELETAL: No joint swelling or deformity. EXTREMITIES: No cyanosis, clubbing, or pedal edema. NEUROLOGICAL: Gross neurological examination did not reveal any focal deficits. Does appear to have some generalized deconditioning and weakness. SKIN: No rashes. Results CBC & Chem 7: 04/24/19 17:06 04/25/19 06:57 Labs: Abnormal Lab Results - Last 24 Hours (Table) 04/24/19 04/25/19 04/25/19 Range/Units 17:06 06:57 10:08 Potassium 5.8 H (3.5-5.1) mmol/L Carbon Dioxide 21 L (22-30) mmol/L BUN 33 H 31 H (9-20) mg/dL Glucose 46 L* (74-99) mg/dL POC Glucose (mg/dL) 176 H (75-99) mg/dL ALT 12 L (21-72) U/L Total Protein 8.5 H (6.3-8.2) g/dL Serum Alcohol 275 H* mg/dL 04/25/19 Range/Units 11:33 Potassium (3.5-5.1) mmol/L Carbon Dioxide (22-30) mmol/L BUN (9-20) mg/dL Glucose (74-99) mg/dL POC Glucose (mg/dL) 234 H (75-99) mg/dL ALT (21-72) U/L Total Protein (6.3-8.2) g/dL Serum Alcohol mg/dL Thrombosis Risk Factor Assmnt - Choose All That Apply Any of the Below Risk Factors Present?: Yes Each Factor Represents 1 point: Obesity (BMI >25) Other Risk Factors: Yes Each Risk Factor Represents 3 Points: Age 75 years or older Other congenital or acquired thrombophilia - If yes, enter type in comment: No Thrombosis Risk Factor Assessment Total Risk Factor Score: 4 Thrombosis Risk Factor Assessment Level: Moderate Risk Assessment and Plan Plan: -All call intoxication patient is on IV fluids thiamine multivitamin supplementation will be discharged today -Mild hypoglycemia secondary to the thiamine supplementation patient received and the that resolved at this time patient will be discharged today -Hypertension -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
[2019-04-26] MEDS ORDERED: PANTOPRAZOLE 40 MG TABLET PO SCH (09:00)
== END 2019-04-25 15:50 | disposition home or self-care (01) ==
LOC: EC 15:49 → 3NMEDONC 18:24
PROVIDERS: ADMIT Internal Medicine; ATTEND Internal Medicine
DX: F10.129 Alcohol abuse with intoxication, unspecified (principal); E16.0 Drug-induced hypoglycemia without coma; T45.2X5A Adverse effect of vitamins, initial encounter; E87.5 Hyperkalemia; M19.90 Unspecified osteoarthritis, unspecified site; I10 Essential (primary) hypertension; F03.90 Unspecified dementia, unspecified severity, without behavioral disturbance, psychotic disturbance, mood disturbance, and anxiety; R32 Unspecified urinary incontinence; E66.9 Obesity, unspecified; Z68.32 Body mass index [BMI] 32.0-32.9, adult; N40.0 Benign prostatic hyperplasia without lower urinary tract symptoms; Y90.8 Blood alcohol level of 240 mg/100 ml or more; S60.512A Abrasion of left hand, initial encounter; S00.81XA Abrasion of other part of head, initial encounter; S09.90XA Unspecified injury of head, initial encounter; T14.8XXA Other injury of unspecified body region, initial encounter; W19.XXXA Unspecified fall, initial encounter; Z86.73 Personal history of transient ischemic attack (TIA), and cerebral infarction without residual deficits; Z85.46 Personal history of malignant neoplasm of prostate; Z87.891 Personal history of nicotine dependence; Z79.1 Long term (current) use of non-steroidal anti-inflammatories (NSAID); Z79.899 Other long term (current) drug therapy; Y92.099 Unspecified place in other non-institutional residence as the place of occurrence of the external cause; Z83.3 Family history of diabetes mellitus; Z23 Encounter for immunization
CPT/HCPCS: 96372 ×2; 90471; 96374; 99285; 36415; 93005; 86900; 86901; 80053; 80048; 84484; 85025; 85610; 85730; 86850; 81003; 80306; 73562; 72170; 71045; 72125; 70450; 90715; G0378 ×2; G0480; J3411; J1650; C9113; 80320

== ENCOUNTER 2019-09-12 22:14 | Inpatient (IN) | payer OTHER, MEDICARE ==
[2019-09-12] MEDS ORDERED: SODIUM CHLORIDE 0.9% 1,000 ML IV STA ×2 (22:16)
--- NOTE | 2019-09-12 22:17 | ED ---
Altered Mental Status HPI - General Stated Complaint: Fall, Had Lac Time Seen by Provider: 09/12/19 22:16 Source: RN notes reviewed, old records reviewed Limitations: altered mental status - History of Present Illness Initial Comments: This is an 84-year-old male presents today for evaluations with fall and unknown down time. Patient is found at his place of living related to occasionally for provide care on the ground this afternoon. Patient brought in by EMS, patient is found with significant head laceration, mildly confused, but no complaints. Patient poor historian secondary to history of likely alcohol abuse patient does smell of alcohol here in the ER. Denying any complaints MD Complaint: altered mental status, confusion, other (Fall) -: unknown Severity: moderate Context: alcohol abuse Associated Symptoms: denies other symptoms - Related Data Home Medications Medication Instructions Recorded Confirmed Lisinopril-Hctz 20-25 mg 1 tab PO DAILY 07/07/18 04/24/19 [Zestoretic 20-25] Naproxen Sodium [Aleve] 220 mg PO DAILY PRN 04/24/19 04/24/19 Previous Rx's Medication Instructions Recorded Ranitidine HCl [Zantac] 150 mg PO BID #20 tab 04/25/19 Allergies Allergy/AdvReac Type Severity Reaction Status Date / Time No Known Allergies Allergy Verified 09/12/19 23:22 Review of Systems ROS Statement: Those systems with pertinent positive or pertinent negative responses have been documented in the HPI. ROS Other: All systems not noted in ROS Statement are negative. Past Medical History Past Medical History: Cancer, CVA/TIA, Dementia, Hypertension, Prostate Disorder Additional Past Medical History / Comment(s): 10/07/14 Pt presented to [facility] ER with C/o Diplopia starting 10/05/14. He states he got up to use the bathroom Sat nite into Tuesday and noticed double vision at that time. The double vision was making. it difficult to walk. Other HX: PROSTATE CANCER with removal, R foot 5th toe redness and edema "getting better". Bilateral tinnitis, Hemorrhiods History of Any Multi-Drug Resistant Organisms: None Reported Past Surgical History: Orthopedic Surgery, Prostate Surgery Additional Past Surgical History / Comment(s): NECK SURGERY AND PROSTATE REMOVED, bilateral cataract removal with lens implants. Past Anesthesia/Blood Transfusion Reactions: No Reported Reaction Smoking Status: Former smoker - Past Family History Father Family Medical History: Diabetes Mellitus Additional Family Medical History / Comment(s): Father may have had cancer but pt is not certain. Mother Family Medical History: Cancer General Exam General appearance: alert, in no apparent distress Head exam: Present: normocephalic, normal inspection. Absent: atraumatic (Significant head laceration, scalp laceration likely 10 cm) Eye exam: Present: normal appearance, PERRL, EOMI. Absent: scleral icterus, conjunctival injection, periorbital swelling ENT exam: Present: normal exam, mucous membranes moist Neck exam: Present: normal inspection. Absent: tenderness, meningismus, lymphadenopathy Respiratory exam: Present: normal lung sounds bilaterally. Absent: respiratory distress, wheezes, rales, rhonchi, stridor Cardiovascular Exam: Present: regular rate, normal rhythm, normal heart sounds. Absent: systolic murmur, diastolic murmur, rubs, gallop, clicks GI/Abdominal exam: Present: soft, normal bowel sounds. Absent: distended, tenderness, guarding, rebound, rigid Extremities exam: Present: normal inspection, full ROM, normal capillary refill. Absent: tenderness, pedal edema, joint swelling, calf tenderness Back exam: Present: normal inspection Neurological exam: Present: alert, oriented X3, CN II-XII intact Psychiatric exam: Present: normal affect, normal mood Skin exam: Present: warm, dry, intact, normal color. Absent: rash Course Vital Signs 09/12/19 22:15 Temperature 98.6 F Pulse Rate 85 Respiratory 17 Rate Blood Pressure 101/69 O2 Sat by Pulse 99 Oximetry Procedures - Laceration Laceration #1 Consent Obtained: verbal consent Indication: laceration Site: scalp Size (cm): 10 Description: flap Depth: simple, single layer Anesthesia Technique: local infiltration Pre-repair: wound explored, irrigated extensively Type of Sutures: other (Zac) Technique: simple, interrupted Medical Decision Making - Medical Decision Making Formality ER status post fall with unknown downtime patient does have scalp laceration repaired here in the ER. Significant alcohol intoxication to 40. - Lab Data Result diagrams: 09/12/19 22:43 Lab Results 09/12/19 09/12/19 09/12/19 Range/Units 22:43 22:43 22:43 WBC 9.6 (3.8-10.6) k/uL RBC 4.37 (4.30-5.90) m/uL Hgb 13.7 (13.0-17.5) gm/dL Hct 42.3 (39.0-53.0) % MCV 96.9 (80.0-100.0) fL MCH 31.3 (25.0-35.0) pg MCHC 32.3 (31.0-37.0) g/dL RDW 13.8 (11.5-15.5) % Plt Count 282 (150-450) k/uL Neutrophils % 83 % Lymphocytes % 9 % Monocytes % 5 % Eosinophils % 1 % Basophils % 1 % Neutrophils # 8.0 H (1.3-7.7) k/uL Lymphocytes # 0.9 L (1.0-4.8) k/uL Monocytes # 0.5 (0-1.0) k/uL Eosinophils # 0.1 (0-0.7) k/uL Basophils # 0.1 (0-0.2) k/uL PT (9.0-12.0) sec INR (<1.2) APTT (22.0-30.0) sec Plasma Lactic Acid Wilmer 4.3 H* (0.7-2.0) mmol/L NT-Pro-B Natriuret Pep pg/mL Serum Alcohol 244 H* mg/dL 09/12/19 09/12/19 Range/Units 22:43 22:43 WBC (3.8-10.6) k/uL RBC (4.30-5.90) m/uL Hgb (13.0-17.5) gm/dL Hct (39.0-53.0) % MCV (80.0-100.0) fL MCH (25.0-35.0) pg MCHC (31.0-37.0) g/dL RDW (11.5-15.5) % Plt Count (150-450) k/uL Neutrophils % % Lymphocytes % % Monocytes % % Eosinophils % % Basophils % % Neutrophils # (1.3-7.7) k/uL Lymphocytes # (1.0-4.8) k/uL Monocytes # (0-1.0) k/uL Eosinophils # (0-0.7) k/uL Basophils # (0-0.2) k/uL PT 10.2 (9.0-12.0) sec INR 0.9 (<1.2) APTT 18.5 L (22.0-30.0) sec Plasma Lactic Acid Wilmer (0.7-2.0) mmol/L NT-Pro-B Natriuret Pep 85 pg/mL Serum Alcohol mg/dL - EKG Data -: EKG Interpreted by Me (EKG shows sinus rhythm rate of 91, MD 140, QRS 80, QTC 445) - Radiology Data Radiology results: report reviewed (CT brain C-spine chest and pelvis x-ray negative for traumatic injury), image reviewed Disposition Clinical Impression: Fall, Alcohol intoxication, Acute confusional state, Elevated lactic acid level, Dehydration Disposition: ADMITTED IP TO THIS HOSP Condition: Fair Is patient prescribed a controlled substance at d/c from ED?: No Referrals: Marcio Hickey MD [REFERRING] - 1-2 days
[2019-09-12 23:07] LABS: Basophils # (A) 0.1 k/uL (0-0.2); Basophils % (A) 1 %; Eosinophils # (A) 0.1 k/uL (0-0.7); Eosinophils % (A) 1 %; HCT 42.3 % (39.0-53.0); HGB 13.7 gm/dL (13.0-17.5); Lymphocytes # (A) 0.9 k/uL (1.0-4.8); Lymphocytes % (A) 9 %; MCH 31.3 pg (25.0-35.0); MCHC 32.3 g/dL (31.0-37.0); MCV 96.9 fL (80.0-100.0); Mean Platelet Volume 7.8; Monocytes # (A) 0.5 k/uL (0-1.0); Monocytes % (A) 5 %; Neutrophils % (A) 83 %; Platelet Count 282 k/uL (150-450); RBC 4.37 m/uL (4.30-5.90); RDW 13.8 % (11.5-15.5); WBC 9.6 k/uL (3.8-10.6)
--- NOTE | 2019-09-12 23:17 | CT ---
EXAMINATION TYPE: CT brain niko wo con DATE OF EXAM: 09/12/2019 COMPARISON: July 07, 2018 HISTORY: Fall/AMS Pain CT DLP: 1438.1 mGycm Automated exposure control for dose reduction was used. Multiple axial sections were obtained of the brain without contrast. Multiple axial sections were obt ained from the skull base to T1 vertebra without contrast. FINDINGS: There is cerebral cortical atrophy. There is no mass effect nor midline shift. There is no sign of in tracranial hemorrhage. The calvarium is intact. There is mucosal thickening right maxillary sinus. There is multilevel posterior cervical spine fusion surgery from C5 to T1 vertebra. There is signific ant anterior subluxation of C7 in relation to T1. Subluxation is 7 mm. I see no acute fracture of the cervical spine. There is hypertrophic facet arthropathy. The skull bas e appears intact. IMPRESSION: Cerebral atrophy. No acute intracranial abnormality. Chronic right maxillary sinusitis. No change. Spondylotic changes in the cervical spine and subluxation deformity. No acute fracture seen. No dinero e compared to old exam.
[2019-09-12 23:25] LABS: INR 0.9 (<1.2); Prothrombin Time 10.2 sec (9.0-12.0)
[2019-09-12 23:43] LABS: Partial Thromboplastin Time 18.5 sec (22.0-30.0)
--- NOTE | 2019-09-12 23:55 | XR ---
EXAMINATION TYPE: XR chest 1V DATE OF EXAM: 09/12/2019 COMPARISON: 04/24/2019 HISTORY: Pain TECHNIQUE: Single view FINDINGS: Heart and mediastinum are normal. Lungs are clear. Diaphragm is normal. Bony thorax appears normal. There is cervical spine fusion surgery. IMPRESSION: Normal chest. No change.
--- NOTE | 2019-09-12 23:57 | XR ---
EXAMINATION TYPE: XR pelvis AP view DATE OF EXAM: 09/12/2019 COMPARISON: NONE HISTORY: Pain. Fall. TECHNIQUE: Single view FINDINGS: Pelvic ring is intact. There is narrowing of right hip joint space. There are numerous surg ical clips in the pelvis. Sacroiliac joints appear intact. Proximal femurs are intact. IMPRESSION: Osteoarthritis right hip joint. No fracture seen.
[2019-09-13] MEDS ORDERED: SODIUM CHLORIDE 0.9% 1,000 ML IV STA ×2 (00:02)
[2019-09-13] MEDS ORDERED: SODIUM CHLORIDE 0.9% 500 ML 500 ML IV STA (00:02)
[2019-09-13 01:21] LABS: ALT 17 U/L (4-49); AST 35 U/L (17-59); African American GFR (CKD) >90 (>60 ml/min/1.73 sqM); Albumin 3.4 g/dL (3.5-5.0); Alkaline Phosphatase 66 U/L (38-126); Anion Gap 11 mmol/L; Blood Urea Nitrogen 18 mg/dL (9-20); Calcium 8.1 mg/dL (8.4-10.2); Carbon Dioxide 24 mmol/L (22-30); Chloride 113 mmol/L (98-107); Creatine Kinase 271 U/L (55-170); Glucose 107 mg/dL (74-99); Magnesium 1.7 mg/dL (1.6-2.3); Non-African American GFR(CKD) 87 (>60 ml/min/1.73 sqM); Phosphorus 2.8 mg/dL (2.5-4.5); Sodium 148 mmol/L (137-145); Total Bilirubin 0.4 mg/dL (0.2-1.3); Total Protein 6.2 g/dL (6.3-8.2)
[2019-09-13 07:09] LABS: Appearance,Urine Cloudy (Clear); Bacteria,Urine Rare /hpf; Bilirubin,Urine Negative (Negative); Blood,Urine Negative (Negative); Cellular Casts,Urine 3 /lpf (0); Color,Urine Yellow; Glucose,Urine (UA) Negative (Negative); Granular Casts,Urine 1 /lpf (0); Hyaline Casts,Urine 14 /lpf (0-2); Ketones,Urine Trace (Negative); Leukocyte Esterase,Urine Negative (Negative); Mucus,Urine Occasional /hpf; Nitrite,Urine Negative (Negative); Protein,Urine Negative (Negative); RBC,Urine 4 /hpf (0-5); Specific Gravity,Urine 1.014 (1.001-1.035); Squamous Epithelial Cell,Urine <1 /hpf (0-4); Urobilinogen,Urine <2.0 mg/dL (<2.0); WBC,Urine 2 /hpf (0-5)
[2019-09-13] MEDS ORDERED: INFLUENZA VACCINE (6 MOS+) 60 MCG/0.5 ML SYRINGE IM ONE (09:36)
[2019-09-13] MEDS ORDERED: SODIUM CHLORIDE 0.9% 1,000 ML IV SCH (14:45)
[2019-09-13] MEDS: SODIUM CHLORIDE 0.45% 1,000 ML IV SCH (14:48)
--- NOTE | 2019-09-13 14:49 | P.HPIM ---
History of Present Illness Present pleasant 84-year-old gentleman came in after a fall patient was drinking before this fall patient had a syncopal episode patient lives in assisted living very pleasant gentleman. Denies alcohol abuse history does drink alcohol once a week. Patient also has multiple recent falls . Patient had any fever chills nausea vomiting. Patient admits to drinking about one fifth of hard liquor yesterday. Patient also had a scalp laceration which was sutured Review of Systems REVIEW OF SYSTEMS: CONSTITUTIONAL: No fever, no malaise, no fatigue. HEENT: No recent visual problems or hearing problems. Denied any sore throat. CARDIOVASCULAR: No chest pain, orthopnea, PND, no palpitations, no syncope. PULMONARY: No shortness of breath, no cough, no hemoptysis. GASTROINTESTINAL: No diarrhea, no nausea, no vomiting, no abdominal pain. NEUROLOGICAL: No headaches, no weakness, no numbness. HEMATOLOGICAL: Denies any bleeding or petechiae. GENITOURINARY: Denies any burning micturition, frequency, or urgency. MUSCULOSKELETAL/RHEUMATOLOGICAL: Denies any joint pain, swelling, or any muscle pain. ENDOCRINE: Denies any polyuria or polydipsia. The rest of the 14-point review of systems is negative. Past Medical History Past Medical History: Cancer, CVA/TIA, Dementia, GERD/Reflux, Hearing Disorder / Deafness, Hypertension, Prostate Disorder Additional Past Medical History / Comment(s): CVA with R eye vision changes, prostate cancer with prostatectomy, bilateral tinnitis, constipation, ETOH abuse, past cervical fracture with surgery/has limited ROM, falls. History of Any Multi-Drug Resistant Organisms: None Reported Past Surgical History: Orthopedic Surgery, Prostate Surgery Additional Past Surgical History / Comment(s): Prostatectomy, cervical surgery with plate/screws, colonoscopy, bilateral cataract removals/lens implants. Past Anesthesia/Blood Transfusion Reactions: No Reported Reaction Smoking Status: Former smoker - Past Family History Father Family Medical History: Diabetes Mellitus Additional Family Medical History / Comment(s): Father may have had cancer but pt is not certain. Mother Family Medical History: Cancer Additional Family Medical History / Comment(s): Breast cancer Medications and Allergies Home Medications Medication Instructions Recorded Confirmed Type Lisinopril-Hctz 20-25 mg 1 tab PO DAILY 07/07/18 09/13/19 History [Zestoretic 20-25] Aspirin EC [Ecotrin Low Dose] 81 mg PO DAILY 09/13/19 09/13/19 History Cholecalciferol (Vitamin D3) 2,000 unit PO DAILY 09/13/19 09/13/19 History [Vitamin D3] Folic Acid 1 mg PO DAILY 09/13/19 09/13/19 History Naproxen 500 mg PO DAILY 09/13/19 09/13/19 History Simvastatin [Zocor] 20 mg PO HS 09/13/19 09/13/19 History Thiamine [Vitamin B-1] 100 mg PO DAILY 09/13/19 09/13/19 History Allergies Allergy/AdvReac Type Severity Reaction Status Date / Time No Known Allergies Allergy Verified 09/13/19 09:41 Physical Exam Vitals: Vital Signs Temp Pulse Pulse Resp BP BP Pulse Ox 09/13/19 13:08 98.2 F 72 16 96/67 97 09/13/19 07:00 98.6 F 114 H 16 141/66 98 09/13/19 06:00 125 H 19 147/84 98 09/13/19 02:30 145/79 09/13/19 02:00 131/70 09/13/19 01:30 132/63 09/13/19 01:00 17 110/71 98 09/13/19 00:00 18 123/73 97 09/12/19 22:17 101/69 95 09/12/19 22:15 98.6 F 85 17 101/69 99 Intake and Output 09/12/19 09/13/19 09/13/19 22:59 06:59 14:59 Other: # Voids 3 # Bowel Movements 1 Weight 86.183 kg 86.183 kg PHYSICAL EXAMINATION: GENERAL: The patient is alert and oriented x3, not in any acute distress. Well developed, well nourished. HEENT: Pupils are round and equally reacting to light. EOMI. No scleral icterus. No conjunctival pallor. Normocephalic, atraumatic. No pharyngeal erythema. No thyromegaly. CARDIOVASCULAR: S1 and S2 present. No murmurs, rubs, or gallops. PULMONARY: Chest is clear to auscultation, no wheezing or crackles. ABDOMEN: Soft, nontender, nondistended, normoactive bowel sounds. No palpable organomegaly. MUSCULOSKELETAL: No joint swelling or deformity. EXTREMITIES: No cyanosis, clubbing, or pedal edema. NEUROLOGICAL: Gross neurological examination did not reveal any focal deficits. SKIN: No rashes. Results CBC & Chem 7: 09/12/19 22:43 09/12/19 23:50 Labs: Abnormal Lab Results - Last 24 Hours (Table) 09/12/19 09/12/19 09/12/19 Range/Units 22:43 22:43 22:43 Neutrophils # 8.0 H (1.3-7.7) k/uL Lymphocytes # 0.9 L (1.0-4.8) k/uL APTT (22.0-30.0) sec Sodium (137-145) mmol/L Chloride (98-107) mmol/L Glucose (74-99) mg/dL Plasma Lactic Acid Wilmer 4.3 H* (0.7-2.0) mmol/L Calcium (8.4-10.2) mg/dL Creatine Kinase (55-170) U/L Total Protein (6.3-8.2) g/dL Albumin (3.5-5.0) g/dL Urine Ketones (Negative) Urine Bacteria (None) /hpf Hyaline Casts (0-2) /lpf Urine Mucus (None) /hpf Serum Alcohol 244 H* mg/dL 09/12/19 09/12/19 09/13/19 Range/Units 22:43 23:50 02:51 Neutrophils # (1.3-7.7) k/uL Lymphocytes # (1.0-4.8) k/uL APTT 18.5 L (22.0-30.0) sec Sodium 148 H (137-145) mmol/L Chloride 113 H (98-107) mmol/L Glucose 107 H (74-99) mg/dL Plasma Lactic Acid Wilmer 2.8 H* (0.7-2.0) mmol/L Calcium 8.1 L (8.4-10.2) mg/dL Creatine Kinase 271 H (55-170) U/L Total Protein 6.2 L (6.3-8.2) g/dL Albumin 3.4 L (3.5-5.0) g/dL Urine Ketones (Negative) Urine Bacteria (None) /hpf Hyaline Casts (0-2) /lpf Urine Mucus (None) /hpf Serum Alcohol mg/dL 09/13/19 09/13/19 09/13/19 Range/Units 06:39 09:06 13:22 Neutrophils # (1.3-7.7) k/uL Lymphocytes # (1.0-4.8) k/uL APTT (22.0-30.0) sec Sodium (137-145) mmol/L Chloride (98-107) mmol/L Glucose (74-99) mg/dL Plasma Lactic Acid Wilmer 2.4 H* 3.9 H* (0.7-2.0) mmol/L Calcium (8.4-10.2) mg/dL Creatine Kinase (55-170) U/L Total Protein (6.3-8.2) g/dL Albumin (3.5-5.0) g/dL Urine Ketones Trace H (Negative) Urine Bacteria Rare H (None) /hpf Hyaline Casts 14 H (0-2) /lpf Urine Mucus Occasional H (None) /hpf Serum Alcohol mg/dL Thrombosis Risk Factor Assmnt - Choose All That Apply Any of the Below Risk Factors Present?: Yes Each Factor Represents 1 point: Obesity (BMI >25) Other Risk Factors: Yes Each Risk Factor Represents 2 Points: Malignancy Each Risk Factor Represents 3 Points: Age 75 years or older Other congenital or acquired thrombophilia - If yes, enter type in comment: No Thrombosis Risk Factor Assessment Total Risk Factor Score: 6 Thrombosis Risk Factor Assessment Level: High Risk Assessment and Plan Plan: -Fall: Seconded all call use patient appears to have some generalized weakness because of his age related muscle atrophy, will need to be placed in subacute rehabilitation physical therapy and occupational therapy was consulted patient will be started on IV fluids because of hyponatremia. Patient will be on on half-normal saline. There is no rinse of any fractures -Hyponatremia secondary to intravascular depletion patient will be started on half-normal saline will repeat labs tomorrow again -Lactic acidosis secondary to intravascular depletion dehydration no evidence of infection at this time -Scalp laceration which was sutured secondary to fall as of now will not start him on antibiotics for that local table antibiotics will be used -Alcohol ABUSE: Counseling was provided, I do not believe patient will have withdrawals since he doesn't drink alcohol on regular basis but will watch for any withdrawals and will be treated accordingly. -Hyperlipidemia continue her on simvastatin -Hypertension patient is bit on the hypotensive side because of which will not start him on any of his antidepressive medications -Patient appears to have some age-related dementia. -Gastroesophageal reflux disease -Benign prostatic -Patient will need a GI as well as DVT prophylaxis pharmacologically
[2019-09-13] MEDS: FAMOTIDINE 20 MG TAB PO SCH (21:26)
[2019-09-13] MEDS: ATORVASTATIN 10 MG TAB PO SCH (21:26)
[2019-09-14] MEDS: SODIUM CHLORIDE 0.45% 1,000 ML IV SCH ×2 (09:17→19:18)
[2019-09-14] MEDS: THIAMINE 100 MG TAB PO SCH (09:18)
[2019-09-14] MEDS: ASPIRIN 81 MG PO SCH (09:26)
[2019-09-14] MEDS: FOLIC ACID 1 MG TAB PO SCH (09:26)
[2019-09-14] MEDS: FAMOTIDINE 20 MG TAB PO SCH ×2 (09:26→19:50)
[2019-09-14] MEDS: ENOXAPARIN 40 MG/0.4 ML SYRINGE SQ SCH (09:26)
--- NOTE | 2019-09-14 15:45 | P.DS ---
Providers Date of admission: 09/13/19 13:15 Attending physician: Jaye Galeano Primary care physician: [facility] Hospital Course: Present pleasant 84-year-old gentleman came in after a fall patient was drinking before this fall patient had a syncopal episode patient lives in assisted living very pleasant gentleman. Denies alcohol abuse history does drink alcohol once a week. Patient also has multiple recent falls . Patient had any fever chills nausea vomiting. Patient admits to drinking about one fifth of hard liquor yesterday. Patient also had a scalp laceration which was sutured. 09/14/2019 Patient is clinically doing well and patient wanted to go home patient is bit tachycardic as of which obtained a TSH within normal limits him obtained d-dimer which is elevated because of which I wanted to get a CAT scan to rule out pulmonary embolism but patient declined to undergo CAT scan for pulmonary embolism evaluation although my suspicion is low for quite PE patient will be given metoprolol and patient will also be given Keflex because of his scalp sutures and the patient was evaluated by physical therapy occupational therapy the not recommending any subacute rehab recommending home long-term care will be set up and patient will be discharged home with home care patient lives in an assisted living. PHYSICAL EXAMINATION: GENERAL: The patient is alert and oriented x3, not in any acute distress. Well developed, well nourished. HEENT: Pupils are round and equally reacting to light. EOMI. No scleral icterus. No conjunctival pallor. Normocephalic, atraumatic. No pharyngeal erythema. No thyromegaly. CARDIOVASCULAR: S1 and S2 present. No murmurs, rubs, or gallops. PULMONARY: Chest is clear to auscultation, no wheezing or crackles. ABDOMEN: Soft, nontender, nondistended, normoactive bowel sounds. No palpable organomegaly. MUSCULOSKELETAL: No joint swelling or deformity. EXTREMITIES: No cyanosis, clubbing, or pedal edema. NEUROLOGICAL: Gross neurological examination did not reveal any focal deficits. SKIN: No rashes. Assessment and Plan Plan: -Fall: Seconded all call use patient appears to have some generalized weakness because of his age related muscle atrophy. 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 -Gastroesophageal reflux disease -Benign prostatic -Patient will need a GI as well as DVT prophylaxis pharmacologically Patient Condition at Discharge: Fair Plan - Discharge Summary Discharge Rx Participant: No New Discharge Prescriptions: New Cephalexin [Keflex] 500 mg PO Q8HR #21 cap Famotidine [Pepcid] 20 mg PO BID #30 tab Metoprolol Succinate [Kapspargo Sprinkle] 50 mg PO DAILY #30 cap.spr.24 Continue Lisinopril-Hctz 20-25 mg [Zestoretic 20-25] 1 tab PO DAILY Thiamine [Vitamin B-1] 100 mg PO DAILY Simvastatin [Zocor] 20 mg PO HS Naproxen 500 mg PO DAILY Folic Acid 1 mg PO DAILY Aspirin EC [Ecotrin Low Dose] 81 mg PO DAILY Cholecalciferol (Vitamin D3) [Vitamin D3] 2,000 unit PO DAILY Discharge Medication List Lisinopril-Hctz 20-25 mg [Zestoretic 20-25] 1 tab PO DAILY 07/07/18 [History] Aspirin EC [Ecotrin Low Dose] 81 mg PO DAILY 09/13/19 [History] Cholecalciferol (Vitamin D3) [Vitamin D3] 2,000 unit PO DAILY 09/13/19 [History] Folic Acid 1 mg PO DAILY 09/13/19 [History] Naproxen 500 mg PO DAILY 09/13/19 [History] Simvastatin [Zocor] 20 mg PO HS 09/13/19 [History] Thiamine [Vitamin B-1] 100 mg PO DAILY 09/13/19 [History] Cephalexin [Keflex] 500 mg PO Q8HR #21 cap 09/14/19 [Rx] Famotidine [Pepcid] 20 mg PO BID #30 tab 09/14/19 [Rx] Metoprolol Succinate [Kapspargo Sprinkle] 50 mg PO DAILY #30 cap.spr.24 09/14/19 [Rx] Follow up Appointment(s)/Referral(s): Marcio Hickey MD [REFERRING] - 3 Days Discharge Disposition: HOME WITH HOME HEALTH SERVICES
[2019-09-14] MEDS: ATORVASTATIN 10 MG TAB PO SCH (19:50)
[2019-09-15] MEDS: SODIUM CHLORIDE 0.45% 1,000 ML IV SCH ×2 (08:40→18:59)
[2019-09-15] MEDS: ASPIRIN 81 MG PO SCH (08:41)
[2019-09-15] MEDS: THIAMINE 100 MG TAB PO SCH (08:41)
[2019-09-15] MEDS: ENOXAPARIN 40 MG/0.4 ML SYRINGE SQ SCH (08:41)
[2019-09-15] MEDS: FOLIC ACID 1 MG TAB PO SCH (08:41)
[2019-09-15] MEDS: FAMOTIDINE 20 MG TAB PO SCH ×2 (08:41→20:12)
--- NOTE | 2019-09-15 16:43 | P.PN ---
Subjective Progress Note Date: 09/15/19 Principal diagnosis: Recurrent falls Mr. Silva is a 84-year-old male with a past medical history of CVA/stroke, dementia, hearing disorder, hypertension, prostate disease coming in after having an episode of fall. Patient has history of recurrent falls and he admits to drinking about 1/5 of hard liquor on a daily basis. Patient had a scalp laceration which was sutured and he is admitted for further management. On 09/15/2019- patient is sitting up in a chair by the bedside if is to be in no acute distress. Patient denies having any fevers chills or rigors. No chest pain or palpitations. No difficulty in breathing or cough. No abdominal pain nausea vomiting or diarrhea. No swelling of his lower extremities. He denies having any dysuria or hematuria. Overnight no acute issues reported per nursing staff. Patient's medications and labs have been reviewed. Objective - Vital Signs Vital signs: Vital Signs Temp 97.9 F 09/15/19 14:55 Pulse 84 09/15/19 14:55 Resp 18 09/15/19 14:55 BP 187/82 09/15/19 14:55 Pulse Ox 99 09/15/19 14:55 Intake & Output 09/14/19 09/15/19 09/15/19 18:59 06:59 18:59 Intake Total 296 Balance 296 Intake: Oral 296 Other: Voiding Method Diaper Diaper Diaper # Voids 2 2 2 - Exam GENERAL: The patient is alert and oriented x3, not in any acute distress. Well developed, well nourished. HEENT: Pupils are round and equally reacting to light. EOMI. No scleral icterus. No conjunctival pallor. No thyromegaly. Scalp laceration sutured. CARDIOVASCULAR: S1 and S2 present. No murmurs, rubs, or gallops. PULMONARY: Chest is clear to auscultation, no wheezing or crackles. ABDOMEN: Soft, nontender, nondistended, normoactive bowel sounds. No palpable organomegaly. MUSCULOSKELETAL: No joint swelling or deformity. EXTREMITIES: No cyanosis, clubbing, or pedal edema. NEUROLOGICAL: Gross neurological examination did not reveal any focal deficits. SKIN: No rashes. - Labs CBC & Chem 7: 09/12/19 22:43 09/12/19 23:50 Assessment and Plan Assessment: ASSESSMENT Recurrent falls Alcohol intoxication Scalp laceration Hypernatremia - possibly due to dehydration Hyperlipidemia Hypertension GERD Age-related dementia BPH PLAN: Patient has been started on IV fluids, will repeat his sodium. Patient had his d-dimer checked, unclear about the reasons and it is elevated. But clinically patient has a very low suspicion for PE as he saturating at 99% on room air and his heart rate is in 80s. Patient is a no code. Currently waiting for subacute rehab placement. Further recommendations to follow depending on the progress of the patient.
[2019-09-15] MEDS: ATORVASTATIN 10 MG TAB PO SCH (20:12)
[2019-09-16 07:17] LABS: African American GFR (CKD) >90 (>60 ml/min/1.73 sqM); Anion Gap 6 mmol/L; Blood Urea Nitrogen 18 mg/dL (9-20); Calcium 8.5 mg/dL (8.4-10.2); Carbon Dioxide 28 mmol/L (22-30); Chloride 107 mmol/L (98-107); Glucose 91 mg/dL (74-99); Non-African American GFR(CKD) 86 (>60 ml/min/1.73 sqM); Potassium 3.9 mmol/L (3.5-5.1); Sodium 141 mmol/L (137-145)
[2019-09-16 07:39] LABS: Basophils % (A) 1 %; Eosinophils # (A) 0.2 k/uL (0-0.7); Eosinophils % (A) 3 %; HCT 29.5 % (39.0-53.0); Lymphocytes # (A) 1.1 k/uL (1.0-4.8); Lymphocytes % (A) 16 %; MCHC 33.9 g/dL (31.0-37.0); MCV 94.4 fL (80.0-100.0); Monocytes # (A) 0.4 k/uL (0-1.0); Monocytes % (A) 5 %; Neutrophils # (A) 4.9 k/uL (1.3-7.7); Neutrophils % (A) 73 %; Platelet Count 281 k/uL (150-450); RBC 3.12 m/uL (4.30-5.90); RDW 13.2 % (11.5-15.5); WBC 6.7 k/uL (3.8-10.6)
[2019-09-16] MEDS: ENOXAPARIN 40 MG/0.4 ML SYRINGE SQ SCH (09:21)
[2019-09-16] MEDS: THIAMINE 100 MG TAB PO SCH (09:21)
[2019-09-16] MEDS: FOLIC ACID 1 MG TAB PO SCH (09:21)
[2019-09-16] MEDS: FAMOTIDINE 20 MG TAB PO SCH ×2 (09:21→21:35)
[2019-09-16] MEDS: ASPIRIN 81 MG PO SCH (09:21)
--- NOTE | 2019-09-16 16:10 | P.PN ---
Subjective Progress Note Date: 09/16/19 Principal diagnosis: Recurrent falls Mr. Silva is a 84-year-old male with a past medical history of CVA/stroke, dementia, hearing disorder, hypertension, prostate disease coming in after having an episode of fall. Patient has history of recurrent falls and he admits to drinking about 1/5 of hard liquor on a daily basis. Patient had a scalp laceration which was sutured and he is admitted for further management. On 09/16/2019- patient is sitting up in a chair by the bedside with history of any acute distress. On no acute events reported by nursing staff. On review of systems patient denies having any fevers, chills or rigors. No chest pain or patient's. No cough or difficulty in breathing. No abdominal pain, nausea, vomiting or diarrhea or constipation. No swelling of his lower extremities. Patient denies having any dysuria or hematuria. Patient's medications and labs have been reviewed. Active Medications Aspirin (Aspirin) 81 mg PO DAILY [facility] Last Admin: 09/16/19 09:21 Dose: 81 mg Documented by: Atorvastatin Calcium (Lipitor) 10 mg PO HS [facility] Last Admin: 09/15/19 20:12 Dose: 10 mg Documented by: Enoxaparin Sodium (Lovenox) 40 mg SQ DAILY [facility] Last Admin: 09/16/19 09:21 Dose: 40 mg Documented by: Famotidine (Pepcid) 20 mg PO BID [facility] Last Admin: 09/16/19 09:21 Dose: 20 mg Documented by: Folic Acid (Folic Acid) 1 mg PO DAILY [facility] Last Admin: 09/16/19 09:21 Dose: 1 mg Documented by: Thiamine HCl (Vitamin B-1) 100 mg PO DAILY [facility] Last Admin: 09/16/19 09:21 Dose: 100 mg Documented by: Objective - Vital Signs Vital signs: Vital Signs Temp 97.7 F 09/16/19 07:38 Pulse 83 09/16/19 07:38 Resp 17 09/16/19 07:38 BP 168/76 09/16/19 07:38 Pulse Ox 98 09/16/19 07:38 Intake & Output 09/15/19 09/16/19 09/16/19 18:59 06:59 18:59 Intake Total 240 Balance 240 Intake: Oral 240 Other: Voiding Method Toilet # Voids 1 4 3 - Exam GENERAL: The patient is alert and oriented x3, not in any acute distress. Well developed, well nourished. HEENT: Pupils are round and equally reacting to light. EOMI. No scleral icterus. No conjunctival pallor. No thyromegaly. Scalp laceration sutured with noris in place on the left side of the scalp. CARDIOVASCULAR: S1 and S2 present. No murmurs, rubs, or gallops. PULMONARY: Chest is clear to auscultation, no wheezing or crackles. ABDOMEN: Soft, nontender, nondistended, normoactive bowel sounds. No palpable organomegaly. MUSCULOSKELETAL: No joint swelling or deformity. EXTREMITIES: No cyanosis, clubbing, or pedal edema. NEUROLOGICAL: Gross neurological examination did not reveal any focal deficits. SKIN: No rashes. - Labs CBC & Chem 7: 09/16/19 06:34 09/16/19 06:34 Labs: Abnormal Lab Results - Last 24 Hours (Table) 09/16/19 Range/Units 06:34 RBC 3.12 L (4.30-5.90) m/uL Hgb 10.0 L D (13.0-17.5) gm/dL Hct 29.5 L (39.0-53.0) % Assessment and Plan Assessment: ASSESSMENT Recurrent falls Alcohol intoxication Scalp laceration - sutured in the ER Hypernatremia - possibly due to dehydration Hyperlipidemia Hypertension GERD Age-related dementia BPH PLAN: Patient's sodium back to baseline with IV fluids. Patient wishes to be a NO CODE . Currently waiting for subacute rehab placement. Further recommendations to follow depending on the progress of the patient.
[2019-09-16 20:33] VITALS: TEMP 98
[2019-09-16] MEDS: ATORVASTATIN 10 MG TAB PO SCH (21:35)
[2019-09-17 04:17] VITALS: RESP 16
[2019-09-17 08:11] VITALS: BP 155/92; PULSE 78
[2019-09-17] MEDS: ENOXAPARIN 40 MG/0.4 ML SYRINGE SQ SCH (09:03)
[2019-09-17] MEDS: FAMOTIDINE 20 MG TAB PO SCH (09:04)
[2019-09-17] MEDS: ASPIRIN 81 MG PO SCH (09:05)
[2019-09-17] MEDS: THIAMINE 100 MG TAB PO SCH (09:05)
[2019-09-17] MEDS: FOLIC ACID 1 MG TAB PO SCH (09:05)
--- NOTE | 2019-09-17 13:30 | P.DS ---
Providers Date of admission: 09/13/19 13:15 Expected date of discharge: 09/17/19 Attending physician: Jaye Galeano Primary care physician: [facility] Hospital Course: Final diagnosis Recurrent falls Alcohol intoxication Scalp laceration Hypernatremia Hyperlipidemia Hypertension GERD Age-related dementia BPH Discharge disposition Patient is being discharged in a stable condition with guarded prognosis to [facility] where he resides in an assisted living facility with home care upon discharge. Patient will continue short course of oral antibiotics in the form of Keflex. Patient will need to follow-up with primary care provider upon discharge. History of present illness This is an 84-year-old male who was recently admitted for recurrent falls and was being closely monitored. Patient had a scalp laceration due to a fall that was sutured in the ER. Patient will be sent to [facility] where he resides in an assisted living facility and continue with oral Keflex upon discharge. Discussed with the patient at length about avoiding any alcohol intake. Guardian-Igor Silva is aware of the discharge and is agreeable at this time. Guardian requesting scripts to be faxed directly to [facility] and will be filled there. Currently patient denies any chest pain, shortness of breath, or palpitations. Patient is afebrile. Patient denies any nausea or vomiting and has been tolerating diet. Patient was working with PT/OT with minimal assist. Guarded prognosis. On exam vital signs are stable. Temp is 98F, pulse is 78, respirations are 16, blood pressure is 155/92, oxygen saturation is 99% on room air. Cardio S1, S2 are present. Respiratory system shows clear to auscultation. Abdomen is soft and nontender. Nervous system shows no focal deficits. Please refer to medication reconciliation sheet for a list of medications. Patient Condition at Discharge: Fair Plan - Discharge Summary Discharge Rx Participant: No New Discharge Prescriptions: New Cephalexin [Keflex] 500 mg PO Q8HR #21 cap Famotidine [Pepcid] 20 mg PO BID #30 tab Metoprolol Succinate [Kapspargo Sprinkle] 50 mg PO DAILY #30 cap.spr.24 Continue Lisinopril-Hctz 20-25 mg [Zestoretic 20-25] 1 tab PO DAILY Thiamine [Vitamin B-1] 100 mg PO DAILY Simvastatin [Zocor] 20 mg PO HS Naproxen 500 mg PO DAILY Folic Acid 1 mg PO DAILY Aspirin EC [Ecotrin Low Dose] 81 mg PO DAILY Cholecalciferol (Vitamin D3) [Vitamin D3] 2,000 unit PO DAILY Discharge Medication List Lisinopril-Hctz 20-25 mg [Zestoretic 20-25] 1 tab PO DAILY 07/07/18 [History] Aspirin EC [Ecotrin Low Dose] 81 mg PO DAILY 09/13/19 [History] Cholecalciferol (Vitamin D3) [Vitamin D3] 2,000 unit PO DAILY 09/13/19 [History] Folic Acid 1 mg PO DAILY 09/13/19 [History] Naproxen 500 mg PO DAILY 09/13/19 [History] Simvastatin [Zocor] 20 mg PO HS 09/13/19 [History] Thiamine [Vitamin B-1] 100 mg PO DAILY 09/13/19 [History] Cephalexin [Keflex] 500 mg PO Q8HR #21 cap 09/14/19 [Rx] Famotidine [Pepcid] 20 mg PO BID #30 tab 09/14/19 [Rx] Metoprolol Succinate [Kapspargo Sprinkle] 50 mg PO DAILY #30 cap.spr.24 09/14/19 [Rx] Follow up Appointment(s)/Referral(s): Marcio Hickey MD [REFERRING] - 3 Days (Office states that he hasn't been seen in 4 years. ) Patient Instructions/Handouts: Dehydration (DC), Alcohol Intoxication (DC), Fall Prevention (DC) Activity/Diet/Wound Care/Special Instructions: Activity Limited until follow-up Continue current diet Follow-up with primary care provider upon discharge Continue to avoid any alcohol intake Discharge Disposition: HOME WITH HOME HEALTH SERVICES
== END 2019-09-17 12:53 | disposition home health service (06) | DRG 641 ==
LOC: EC 22:14 → 6NMEDSUR 09-13 00:02 → OBSVTOIN 09-13 13:15 → 4SSUR 09-13 14:44
PROVIDERS: ADMIT Hospitalist; ATTEND Hospitalist
PROC: 0HQ0XZZ Repair Scalp Skin, External Approach (ICD-10-PCS; principal; 2019-09-12)
PROC: 3E02340 Introduction of Influenza Vaccine into Muscle, Percutaneous Approach (ICD-10-PCS; 2019-09-13)
DX: E87.0 Hyperosmolality and hypernatremia (principal); E87.2 Acidosis; I95.9 Hypotension, unspecified; F03.90 Unspecified dementia, unspecified severity, without behavioral disturbance, psychotic disturbance, mood disturbance, and anxiety; E86.0 Dehydration; Z23 Encounter for immunization; I10 Essential (primary) hypertension; F10.129 Alcohol abuse with intoxication, unspecified; M62.50 Muscle wasting and atrophy, not elsewhere classified, unspecified site; S01.01XA Laceration without foreign body of scalp, initial encounter; R29.6 Repeated falls; E78.5 Hyperlipidemia, unspecified; K21.9 Gastro-esophageal reflux disease without esophagitis; N40.0 Benign prostatic hyperplasia without lower urinary tract symptoms; H91.90 Unspecified hearing loss, unspecified ear; Y90.8 Blood alcohol level of 240 mg/100 ml or more; Z79.82 Long term (current) use of aspirin; Z79.1 Long term (current) use of non-steroidal anti-inflammatories (NSAID); Z79.899 Other long term (current) drug therapy; Z71.41 Alcohol abuse counseling and surveillance of alcoholic; Z87.891 Personal history of nicotine dependence; Z86.73 Personal history of transient ischemic attack (TIA), and cerebral infarction without residual deficits; Z85.46 Personal history of malignant neoplasm of prostate; Z90.79 Acquired absence of other genital organ(s); Z98.42 Cataract extraction status, left eye; Z98.41 Cataract extraction status, right eye; Z96.1 Presence of intraocular lens; W19.XXXA Unspecified fall, initial encounter; Y92.009 Unspecified place in unspecified non-institutional (private) residence as the place of occurrence of the external cause; Z83.3 Family history of diabetes mellitus; Z80.3 Family history of malignant neoplasm of breast
CPT/HCPCS: 12004; 36415; 51798; 70450; 71045; 72125; 72170; 80048; 80053; 80320; 81001; 82550; 83605; 83735; 83880; 84100; 84443; 84484; 85025; 85379; 85610; 85730; 90471; 90686; 93005; 96360; 96361; 99285

== ENCOUNTER → 2020-09-24 | Outpatient (CLI) | payer MEDICARE, OTHER ==
--- NOTE | 2020-09-24 14:48 | US ---
EXAMINATION TYPE: US venous doppler duplex LE LT DATE OF EXAM: 09/24/2020 2:04 PM COMPARISON: NONE CLINICAL HISTORY: L03.116 Cellulitis of left lower limb. Cellulitis left lower leg. No redness is see n today. SIDE PERFORMED: Left TECHNIQUE: The lower extremity deep venous system is examined utilizing real time linear array sonog monique with graded compression, doppler sonography and color-flow sonography. VESSELS IMAGED: Common Femoral Vein Deep Femoral Vein Greater Saphenous Vein * Femoral Vein Popliteal Vein Small Saphenous Vein * Proximal Calf Veins (* superficial vessels) Left Leg: Negative for DVT IMPRESSION: 1. Left lower extremity ultrasound negative for deep venous thrombosis.
== END | disposition home or self-care (01) ==
LOC: RADUSWWP 13:42
DX: L03.116 Cellulitis of left lower limb (principal)

== ENCOUNTER 2022-04-12 17:37 | Emergency (ER) | payer OTHER ==
[2022-04-12 17:46] VITALS: RESP 18; TEMP 96.9
[2022-04-12] MEDS ORDERED: SODIUM CHLORIDE 0.9% 1,000 ML IV STA (18:08)
--- NOTE | 2022-04-12 18:13 | ED ---
Fall HPI - General Chief Complaint: Fall Stated Complaint: fall Time Seen by Provider: 04/12/22 18:02 Source: patient, family, EMS, RN notes reviewed Mode of arrival: EMS - History of Present Illness Initial Comments: This is an 86-year-old male who presents to the emergency department for a fall. He is with his cousin, who states that she went over to his house today, and found him on the ground. States that she is unsure how long he had been on the ground for or what kind of injuries he may have sustained. This did happen approximately one year ago as well. States that he is very unsteady on his feet, but does live by himself. Patient currently denying any injuries or pain. Denies any fevers, chills, sore throat, cough, dyspnea, chest pain, palpitations , abdominal pain, nausea, vomiting, diarrhea, back pain, or headaches. MD Complaint: fall When Fall Occurred: unsure Fall Witnessed: no Place Fall Occurred: home Prolonged Down Time?: yes - Related Data Home Medications Medication Instructions Recorded Confirmed Lisinopril-Hctz 20-25 mg 1 tab PO DAILY 07/07/18 09/13/19 [Zestoretic 20-25] Aspirin EC [Ecotrin Low Dose] 81 mg PO DAILY 09/13/19 09/13/19 Cholecalciferol (Vitamin D3) 2,000 unit PO DAILY 09/13/19 09/13/19 [Vitamin D3] Folic Acid 1 mg PO DAILY 09/13/19 09/13/19 Naproxen 500 mg PO DAILY 09/13/19 09/13/19 Simvastatin [Zocor] 20 mg PO HS 09/13/19 09/13/19 Thiamine [Vitamin B-1] 100 mg PO DAILY 09/13/19 09/13/19 Previous Rx's Medication Instructions Recorded Cephalexin [Keflex] 500 mg PO Q8HR #21 cap 09/14/19 Famotidine [Pepcid] 20 mg PO BID #30 tab 09/14/19 Metoprolol Succinate [Kapspargo 50 mg PO DAILY #30 cap.spr.24 09/14/19 Sprinkle] Allergies Allergy/AdvReac Type Severity Reaction Status Date / Time No Known Allergies Allergy Verified 04/12/22 22:07 Review of Systems ROS Statement: Those systems with pertinent positive or pertinent negative responses have been documented in the HPI. ROS Other: All systems not noted in ROS Statement are negative. Past Medical History Past Medical History: Cancer, CVA/TIA, Dementia, GERD/Reflux, Hearing Disorder / Deafness, Hypertension, Prostate Disorder Additional Past Medical History / Comment(s): CVA with R eye vision changes, prostate cancer with prostatectomy, bilateral tinnitis, constipation, ETOH abuse, past cervical fracture with surgery/has limited ROM, falls. History of Any Multi-Drug Resistant Organisms: None Reported Past Surgical History: Orthopedic Surgery, Prostate Surgery Additional Past Surgical History / Comment(s): Prostatectomy, cervical surgery with plate/screws, colonoscopy, bilateral cataract removals/lens implants. Past Anesthesia/Blood Transfusion Reactions: No Reported Reaction Past Psychological History: No Psychological Hx Reported Smoking Status: Never smoker Past Alcohol Use History: Daily, Heavy Past Drug Use History: None Reported - Past Family History Father Family Medical History: Diabetes Mellitus Additional Family Medical History / Comment(s): Father may have had cancer but pt is not certain. Mother Family Medical History: Cancer Additional Family Medical History / Comment(s): Breast cancer General Exam Limitations: no limitations General appearance: alert Head exam: Present: atraumatic, normocephalic, normal inspection Eye exam: Present: normal appearance, PERRL, EOMI. Absent: scleral icterus, conjunctival injection, periorbital swelling Neck exam: Present: normal inspection. Absent: tenderness, meningismus, lymphadenopathy Respiratory exam: Present: normal lung sounds bilaterally. Absent: respiratory distress, wheezes, rales, rhonchi, stridor Cardiovascular Exam: Present: regular rate, normal rhythm, normal heart sounds. Absent: systolic murmur, diastolic murmur, rubs, gallop, clicks GI/Abdominal exam: Present: soft, normal bowel sounds. Absent: distended, tenderness, guarding, rebound, rigid Neurological exam: Present: alert, oriented X3, CN II-XII intact Psychiatric exam: Present: normal affect, normal mood Skin exam: Present: warm, dry, intact, normal color, other (Dried areas of blood and abrasions to the back of the scalp, no active bleeding or open wounds.). Absent: rash Course Vital Signs 04/12/22 04/12/22 04/12/22 17:43 22:12 23:55 Temperature 96.9 F L Pulse Rate 63 89 90 Respiratory 18 18 18 Rate Blood Pressure 108/94 123/70 150/90 O2 Sat by Pulse 98 100 95 Oximetry Medical Decision Making - Medical Decision Making This is an 86-year-old male who presents to the emergency department for a fall. Lab work revealed an elevated alcohol level of 155, which is most likely the cause of the patient's fall. He does have a notable history of becoming intoxicated and then falling. Computed tomography scan of the brain and c-spine as well as a chest x-ray were obtained, both of which revealed no acute irregularities. Patient was treated with IV fluids. His alcohol level does not meet criteria for admission. Patient is stable for discharge home. Return precautions reviewed in depth, the patient is instructed to return to the emergency department with any new, worsening, or concerning symptoms. Patient ve rbalized understanding. This case was discussed in detail with the attending ED physician. Presentation, findings, and treatment plan discussed in detail as well. - Lab Data Result diagrams: 04/12/22 17:55 04/12/22 19:05 Lab Results 04/12/22 04/12/22 04/12/22 Range/Units 17:55 18:08 19:05 WBC 5.2 (3.8-10.6) k/uL RBC 4.58 (4.30-5.90) m/uL Hgb 14.2 (13.0-17.5) gm/dL Hct 43.5 (39.0-53.0) % MCV 94.9 (80.0-100.0) fL MCH 31.1 (25.0-35.0) pg MCHC 32.7 (31.0-37.0) g/dL RDW 13.2 (11.5-15.5) % Plt Count 241 (150-450) k/uL MPV 7.7 Neutrophils % 64 % Lymphocytes % 25 % Monocytes % 6 % Eosinophils % 2 % Basophils % 1 % Neutrophils # 3.3 (1.3-7.7) k/uL Lymphocytes # 1.3 (1.0-4.8) k/uL Monocytes # 0.3 (0-1.0) k/uL Eosinophils # 0.1 (0-0.7) k/uL Basophils # 0.0 (0-0.2) k/uL Sodium 145 (137-145) mmol/L Potassium 4.1 (3.5-5.1) mmol/L Chloride 105 (98-107) mmol/L Carbon Dioxide 28 (22-30) mmol/L Anion Gap 12 mmol/L BUN 22 H (9-20) mg/dL Creatinine 0.96 (0.66-1.25) mg/dL Est GFR (CKD-EPI)AfAm 83 (>60 ml/min/1.73 sqM) Est GFR (CKD-EPI)NonAf 72 (>60 ml/min/1.73 sqM) Glucose 84 (74-99) mg/dL Calcium 8.9 (8.4-10.2) mg/dL Total Bilirubin 0.2 (0.2-1.3) mg/dL AST 34 (17-59) U/L ALT 17 (4-49) U/L Alkaline Phosphatase 68 (38-126) U/L Creatine Kinase 324 H (55-170) U/L Troponin I (0.000-0.034) ng/mL Total Protein 7.3 (6.3-8.2) g/dL Albumin 4.3 (3.5-5.0) g/dL Urine Color Light Yellow Urine Appearance Clear (Clear) Urine pH 5.0 (5.0-8.0) Ur Specific [place] 1.009 (1.001-1.035) Urine Protein Negative (Negative) Urine Glucose (UA) Negative (Negative) Urine Ketones Negative (Negative) Urine Blood Negative (Negative) Urine Nitrite Negative (Negative) Urine Bilirubin Negative (Negative) Urine Urobilinogen <2.0 (<2.0) mg/dL Ur Leukocyte Esterase Negative (Negative) Urine Opiates Screen (NotDetected) Ur Oxycodone Screen (NotDetected) Urine Methadone Screen (NotDetected) Ur Propoxyphene Screen (NotDetected) Ur Barbiturates Screen (NotDetected) U Tricyclic Antidepress (NotDetected) Ur Phencyclidine Scrn (NotDetected) Ur Amphetamines Screen (NotDetected) U Methamphetamines Scrn (NotDetected) U Benzodiazepines Scrn (NotDetected) Urine Cocaine Screen (NotDetected) U Marijuana (THC) Screen (NotDetected) Serum Alcohol mg/dL 04/12/22 04/12/22 04/12/22 Range/Units 19:05 20:58 22:01 WBC (3.8-10.6) k/uL RBC (4.30-5.90) m/uL Hgb (13.0-17.5) gm/dL Hct (39.0-53.0) % MCV (80.0-100.0) fL MCH (25.0-35.0) pg MCHC (31.0-37.0) g/dL RDW (11.5-15.5) % Plt Count (150-450) k/uL MPV Neutrophils % % Lymphocytes % % Monocytes % % Eosinophils % % Basophils % % Neutrophils # (1.3-7.7) k/uL Lymphocytes # (1.0-4.8) k/uL Monocytes # (0-1.0) k/uL Eosinophils # (0-0.7) k/uL Basophils # (0-0.2) k/uL Sodium (137-145) mmol/L Potassium (3.5-5.1) mmol/L Chloride (98-107) mmol/L Carbon Dioxide (22-30) mmol/L Anion Gap mmol/L BUN (9-20) mg/dL Creatinine (0.66-1.25) mg/dL Est GFR (CKD-EPI)AfAm (>60 ml/min/1.73 sqM) Est GFR (CKD-EPI)NonAf (>60 ml/min/1.73 sqM) Glucose (74-99) mg/dL Calcium (8.4-10.2) mg/dL Total Bilirubin (0.2-1.3) mg/dL AST (17-59) U/L ALT (4-49) U/L Alkaline Phosphatase (38-126) U/L Creatine Kinase (55-170) U/L Troponin I <0.012 (0.000-0.034) ng/mL Total Protein (6.3-8.2) g/dL Albumin (3.5-5.0) g/dL Urine Color Urine Appearance (Clear) Urine pH (5.0-8.0) Ur Specific [place] (1.001-1.035) Urine Protein (Negative) Urine Glucose (UA) (Negative) Urine Ketones (Negative) Urine Blood (Negative) Urine Nitrite (Negative) Urine Bilirubin (Negative) Urine Urobilinogen (<2.0) mg/dL Ur Leukocyte Esterase (Negative) Urine Opiates Screen Not Detected (NotDetected) Ur Oxycodone Screen Not Detected (NotDetected) Urine Methadone Screen Not Detected (NotDetected) Ur Propoxyphene Screen Not Detected (NotDetected) Ur Barbiturates Screen Not Detected (NotDetected) U Tricyclic Antidepress Not Detected (NotDetected) Ur Phencyclidine Scrn Not Detected (NotDetected) Ur Amphetamines Screen Not Detected (NotDetected) U Methamphetamines Scrn Not Detected (NotDetected) U Benzodiazepines Scrn Not Detected (NotDetected) Urine Cocaine Screen Not Detected (NotDetected) U Marijuana (THC) Screen Not Detected (NotDetected) Serum Alcohol 155 mg/dL - EKG Data EKG Comments: Sinus rhythm. Ventricular rate 63 bpm, ME interval 195 ms, QRS duration 103 ms, QTC 408 ms. - Radiology Data Radiology results: report reviewed, image reviewed Disposition Clinical Impression: Alcohol intoxication Disposition: HOME SELF-CARE Instructions (If sedation given, give patient instructions): Fall Prevention for Older Adults (ED), Alcohol Withdrawal (ED), Alcohol Use Disorder (ED) Additional Instructions: Return to the emergency department with any new, worsening, or concerning symptoms. Reduce your consumption of alcohol to prevent additional falls and injuries in the future. Is patient prescribed a controlled substance at d/c from ED?: No Referrals: [facility],Clinic [Primary Care Provider] - 1-2 days
[2022-04-12 18:20] LABS: Basophils % (A) 1 %; Eosinophils # (A) 0.1 k/uL (0-0.7); Eosinophils % (A) 2 %; HCT 43.5 % (39.0-53.0); HGB 14.2 gm/dL (13.0-17.5); Lymphocytes # (A) 1.3 k/uL (1.0-4.8); Lymphocytes % (A) 25 %; MCH 31.1 pg (25.0-35.0); MCHC 32.7 g/dL (31.0-37.0); MCV 94.9 fL (80.0-100.0); Mean Platelet Volume 7.7; Monocytes # (A) 0.3 k/uL (0-1.0); Monocytes % (A) 6 %; Neutrophils # (A) 3.3 k/uL (1.3-7.7); Neutrophils % (A) 64 %; Platelet Count 241 k/uL (150-450); RBC 4.58 m/uL (4.30-5.90); RDW 13.2 % (11.5-15.5); WBC 5.2 k/uL (3.8-10.6)
--- NOTE | 2022-04-12 19:02 | XR ---
EXAMINATION TYPE: XR chest 2V DATE OF EXAM: 04/12/2022 6:33 PM COMPARISON: Chest radiographs from 09/12/2019 TECHNIQUE: XR chest 2V Frontal and lateral views of the chest. CLINICAL INDICATION:Male, 86 years old with history of Fall, unknown downtime; FINDINGS: Lungs/Pleura: There is no evidence of pleural effusion, focal consolidation, or pneumothorax. Pulmonary vascularity: Unremarkable. Heart/mediastinum: Cardiomediastinal silhouette is unremarkable. Musculoskeletal: No acute osseous pathology. IMPRESSION: No acute cardiopulmonary disease/process.
--- NOTE | 2022-04-12 19:08 | CT ---
EXAMINATION TYPE: CT brain cspine wo con CT DLP: 3435.7 mGycm, Automated exposure control for dose reduction was used. DATE OF EXAM: 04/12/2022 6:52 PM COMPARISON: None.. CLINICAL INDICATION:Male, 86 years old with history of Fall, unknown downtime; AMS and fall. pt unabl e to lay neck flat. TECHNIQUE: Brain: Multiple axial CT images of the brain were obtained without IV contrast. Cspine: Axial CT images from the skull base to the inferior aspect of T2 we obtained without intraven ous contrast. Coronal and sagittal reformatted images were also reviewed. FINDINGS: Brain: Extra-axial spaces: No abnormal extra-axial fluid collections. Ventricular system: Within normal limits Cerebral parenchyma: No acute intraparenchymal hemorrhage or mass effect. The nixon-white junction is well differentiated. Cerebellum: Unremarkable. Mass effect: No evidence of midline shift. Intracranial vasculature: Atherosclerotic calcifications of the intracranial vessels. Soft tissues: Soft tissue edema in the posterior scan. Calvarium/osseous structures: No depressed skull fracture. Paranasal sinuses and mastoid air cells: Moderate scattered paranasal sinus disease. Visualized orbits: Orbital contents are intact. Cervical spine: Fracture: None. Osseous structures: There is multilevel disc degeneration changes throughout the spine with fixation hardware extending from C5, C6, C7, T1 and T2. There is grade 2/3 anterolisthesis of C7 on T1 which h as been surgically stabilized. No evidence for fracture. There is remote appearing fractures of the r ight posterior upper thoracic ribs. Vertebral alignment: Postsurgical stranding of the spine. Spinal canal/Neural Foramina: No evidence of significant spinal canal narrowing. Facet joint uncovert ebral joint arthropathy scattered throughout the cervical spine with varying degrees of neural forami nal stenosis. Neck soft tissues: Prevertebral soft tissues are within normal limits. Thyroid nodular changes in the right with calcification. Other: The airway is patent. The lung apices are clear. IMPRESSION: 1. No acute intracranial process. 2. Postsurgical changes of the spine without evidence for hardware failure or definitive acute fract ure. 3. Moderate multilevel degenerative disc disease. 4. Posterior scalp edema/laceration.
[2022-04-12 19:31] LABS: Albumin 4.3 g/dL (3.5-5.0); Calcium 8.9 mg/dL (8.4-10.2); Potassium 4.1 mmol/L (3.5-5.1); Total Bilirubin 0.2 mg/dL (0.2-1.3); Total Protein 7.3 g/dL (6.3-8.2)
[2022-04-12 21:05] LABS: Appearance,Urine Clear (Clear); Bilirubin,Urine Negative (Negative); Blood,Urine Negative (Negative); Color,Urine Light Yellow; Glucose,Urine (UA) Negative (Negative); Ketones,Urine Negative (Negative); Leukocyte Esterase,Urine Negative (Negative); Nitrite,Urine Negative (Negative); Protein,Urine Negative (Negative); Specific Gravity,Urine 1.009 (1.001-1.035); Urobilinogen,Urine <2.0 mg/dL (<2.0)
[2022-04-12 21:16] LABS: Amphetamine Screen,Urine Not Detected (NotDetected); Barbiturate Screen,Urine Not Detected (NotDetected); Benzodiazepines Screen,Urine Not Detected (NotDetected); Cocaine Screen,Urine Not Detected (NotDetected); Methadone Screen, Urine Not Detected (NotDetected); Opiate Screen,Urine Not Detected (NotDetected); Oxycodone Screen, Urine Not Detected (NotDetected); Phencyclidine Screen,Urine Not Detected (NotDetected); Tricyclic Antidepressant,Urine Not Detected (NotDetected); Urn Cannabinoid Scrn Not Detected (NotDetected)
[2022-04-12 23:57] VITALS: BP 150/90; PULSE 90
== END 2022-04-12 23:55 | disposition home or self-care (01) ==
LOC: EEVIPCON 17:37 → EC 17:37
DX: F10.929 Alcohol use, unspecified with intoxication, unspecified (principal); K21.9 Gastro-esophageal reflux disease without esophagitis; I10 Essential (primary) hypertension; Z86.73 Personal history of transient ischemic attack (TIA), and cerebral infarction without residual deficits; Z79.899 Other long term (current) drug therapy; W19.XXXA Unspecified fall, initial encounter
CPT/HCPCS: 36415; 70450; 71046; 72125; 80053; 80306; 80320; 81003; 82550; 84484; 85025; 96360; 96361; 99285

== ENCOUNTER 2022-08-01 11:21 | Emergency (ER) | payer OTHER, MEDICARE ==
[2022-08-01 11:37] VITALS: RESP 18; TEMP 97.6
[2022-08-01] MEDS ORDERED: MORPHINE SULFATE 4 MG/ML SYRINGE IM STA (11:56)
--- NOTE | 2022-08-01 12:00 | ED ---
Fall HPI - General Chief Complaint: Fall Stated Complaint: Fall, hip pain Time Seen by Provider: 08/01/22 11:48 Source: patient, family (son) Mode of arrival: wheelchair - History of Present Illness Initial Comments: This is an 86-year-old male presents to the emergency room with his son complaining of left hip and buttock pain. Per son patient does live in assisted living by himself and did have a fall 10 days ago. Patient was trying to go to the bathroom as he had diarrhea when he had the fall. Diarrhea has since resolved. Son states patient does have a shuffling gait and has had multiple falls in the past. He has been able to ambulate since however pain is progres sively getting worse. Patient told son today he wanted to be seen in the emergency room for increased pain to the left hip. Patient does have a history of CVA, dementia, hypertension, is very hard of hearing. MD Complaint: fall -: days(s) (10) When Fall Occurred: # days [employer] (10) Fall Witnessed: no Place Fall Occurred: home Prolonged Down Time?: no Severity scale (1-10): 10 Associated Symptoms: denies - Related Data Home Medications Medication Instructions Recorded Confirmed Lisinopril-Hctz 20-25 mg 1 tab PO DAILY 07/07/18 09/13/19 [Zestoretic 20-25] Aspirin EC [Ecotrin Low Dose] 81 mg PO DAILY 09/13/19 09/13/19 Cholecalciferol (Vitamin D3) 2,000 unit PO DAILY 09/13/19 09/13/19 [Vitamin D3] Folic Acid 1 mg PO DAILY 09/13/19 09/13/19 Naproxen 500 mg PO DAILY 09/13/19 09/13/19 Simvastatin [Zocor] 20 mg PO HS 09/13/19 09/13/19 Thiamine [Vitamin B-1] 100 mg PO DAILY 09/13/19 09/13/19 Previous Rx's Medication Instructions Recorded Cephalexin [Keflex] 500 mg PO Q8HR #21 cap 09/14/19 Famotidine [Pepcid] 20 mg PO BID #30 tab 09/14/19 Metoprolol Succinate [Kapspargo 50 mg PO DAILY #30 cap.spr.24 09/14/19 Sprinkle] Allergies Allergy/AdvReac Type Severity Reaction Status Date / Time No Known Allergies Allergy Verified 04/12/22 22:07 Review of Systems ROS Statement: Those systems with pertinent positive or pertinent negative responses have been documented in the HPI. ROS Other: All systems not noted in ROS Statement are negative. Past Medical History Past Medical History: Cancer, CVA/TIA, Dementia, GERD/Reflux, Hearing Disorder / Deafness, Hypertension, Prostate Disorder Additional Past Medical History / Comment(s): CVA with R eye vision changes, prostate cancer with prostatectomy, bilateral tinnitis, constipation, ETOH abuse, past cervical fracture with surgery/has limited ROM, falls. History of Any Multi-Drug Resistant Organisms: None Reported Past Surgical History: Orthopedic Surgery, Prostate Surgery Additional Past Surgical History / Comment(s): Prostatectomy, cervical surgery with plate/screws, colonoscopy, bilateral cataract removals/lens implants. Past Anesthesia/Blood Transfusion Reactions: No Reported Reaction Past Psychological History: No Psychological Hx Reported Smoking Status: Never smoker Past Alcohol Use History: Occasional Past Drug Use History: None Reported - Past Family History Father Family Medical History: Diabetes Mellitus Additional Family Medical History / Comment(s): Father may have had cancer but pt is not certain. Mother Family Medical History: Cancer Additional Family Medical History / Comment(s): Breast cancer General Exam Limitations: altered mental status General appearance: alert, in no apparent distress Head exam: Present: atraumatic, normocephalic Eye exam: Absent: scleral icterus, conjunctival injection, periorbital swelling, periorbital tenderness ENT exam: Present: mucous membranes moist Neck exam: Absent: meningismus Respiratory exam: Absent: respiratory distress, accessory muscle use Cardiovascular Exam: Present: regular rate GI/Abdominal exam: Present: soft. Absent: distended, tenderness, guarding, rebound, rigid Extremities exam: Present: normal capillary refill. Absent: pedal edema, calf tenderness Back exam: Absent: tenderness, CVA tenderness (R), CVA tenderness (L), paraspinal tenderness, vertebral tenderness, rash noted Neurological exam: Present: alert Psychiatric exam: Present: normal affect, normal mood Skin exam: Present: warm, dry, normal color, abrasion (Dried scale abrasions bilateral elbows). Absent: cyanosis, diaphoretic, pallor Course Vital Signs 08/01/22 08/01/22 08/01/22 11:29 11:33 14:07 Temperature 97.6 F 97.6 F 97.6 F Pulse Rate 100 100 94 Respiratory 18 18 18 Rate Blood Pressure 104/65 104/65 107/66 O2 Sat by Pulse 98 98 Oximetry Medical Decision Making - Medical Decision Making Patient has history of multiple falls in the past per son. Review of medical records shows that patient has been seen in the past for falls related to alcohol intoxication. Denies any alcohol use today. Patient is not on any blood thinners. Is alert and oriented following commands. Moving all extremities. X-ray of the left hip and pelvis show no acute fracture. Radiologist impression no fracture or dislocation of the pelvis or hip. Mild to moderate degenerative change of the left. CT of the brain and C-spine performed due to unwitnessed fall. My interpretation is no evidence of skull fracture. C-spine degenerative changes and postop changes. Radiologist interpretation advanced degenerative changes throughout the cervical spine, no evidence of trauma, advanced degenerative changes and posterior metallic fusion of C5 to T2. No mass affect or intracranial hemorrhage. Vital signs are stable. Patient is able to lift both legs up off the bed. No bowel or bladder incontinence, no fevers. Patient is able to ambulate in the emergency room. Pain is likely related to arthritis and degenerative disc disease. He was discharged home with his son. They were directed to follow up with primary care doctor this week for continuation of care. They were also advised that his creatinine level is elevated which is likely due to dehydration s/p recent diarrhea. Patient and son are agreeable to this plan of care. Case discussed with Dr. Null - Lab Data Result diagrams: 08/01/22 12:39 08/01/22 12:39 Lab Results 08/01/22 08/01/22 08/01/22 Range/Units 12:39 12:39 13:06 WBC 7.8 (3.8-10.6) k/uL RBC 3.74 L (4.30-5.90) m/uL Hgb 11.9 L (13.0-17.5) gm/dL Hct 35.1 L (39.0-53.0) % MCV 93.8 (80.0-100.0) fL MCH 31.7 (25.0-35.0) pg MCHC 33.8 (31.0-37.0) g/dL RDW 12.8 (11.5-15.5) % Plt Count 379 (150-450) k/uL MPV 7.9 Neutrophils % 84 % Lymphocytes % 6 % Monocytes % 8 % Eosinophils % 1 % Basophils % 1 % Neutrophils # 6.6 (1.3-7.7) k/uL Lymphocytes # 0.5 L (1.0-4.8) k/uL Monocytes # 0.6 (0-1.0) k/uL Eosinophils # 0.1 (0-0.7) k/uL Basophils # 0.0 (0-0.2) k/uL Sodium 140 (137-145) mmol/L Potassium 4.1 (3.5-5.1) mmol/L Chloride 104 (98-107) mmol/L Carbon Dioxide 27 (22-30) mmol/L Anion Gap 9 mmol/L BUN 42 H (9-20) mg/dL Creatinine 1.35 H (0.66-1.25) mg/dL Est GFR (CKD-EPI)AfAm 55 (>60 ml/min/1.73 sqM) Est GFR (CKD-EPI)NonAf 47 (>60 ml/min/1.73 sqM) Glucose 103 H (74-99) mg/dL Calcium 8.8 (8.4-10.2) mg/dL Urine Color Yellow Urine Appearance Clear (Clear) Urine pH 5.5 (5.0-8.0) Ur Specific [place] 1.029 (1.001-1.035) Urine Protein Trace H (Negative) Urine Glucose (UA) Negative (Negative) Urine Ketones Negative (Negative) Urine Blood Trace H (Negative) Urine Nitrite Negative (Negative) Urine Bilirubin Negative (Negative) Urine Urobilinogen <2.0 (<2.0) mg/dL Ur Leukocyte Esterase Negative (Negative) Urine RBC 1 (0-5) /hpf Urine WBC 15 H (0-5) /hpf Ur Squamous Epith Cells <1 (0-4) /hpf Urine Mucus Rare H (None) /hpf Disposition Clinical Impression: Fall, Elevated serum creatinine Disposition: HOME SELF-CARE Condition: Good Instructions (If sedation given, give patient instructions): Fall Prevention for Older Adults (ED), Hip Pain (ED) Additional Instructions: Follow-up with your primary care doctor this week. Notify your doctor that your kidney function tests are elevated and need to be reassessed. This is likely due to dehydration, possibly related to your recent diarrhea. Is patient prescribed a controlled substance at d/c from ED?: No Referrals: [facility],Clinic [Primary Care Provider] - 1-2 days Time of Disposition: 13:31
[2022-08-01 13:02] LABS: Basophils % (A) 1 %; Eosinophils # (A) 0.1 k/uL (0-0.7); Eosinophils % (A) 1 %; HCT 35.1 % (39.0-53.0); HGB 11.9 gm/dL (13.0-17.5); Lymphocytes # (A) 0.5 k/uL (1.0-4.8); Lymphocytes % (A) 6 %; MCH 31.7 pg (25.0-35.0); MCHC 33.8 g/dL (31.0-37.0); MCV 93.8 fL (80.0-100.0); Mean Platelet Volume 7.9; Monocytes # (A) 0.6 k/uL (0-1.0); Monocytes % (A) 8 %; Neutrophils # (A) 6.6 k/uL (1.3-7.7); Neutrophils % (A) 84 %; Platelet Count 379 k/uL (150-450); RBC 3.74 m/uL (4.30-5.90); RDW 12.8 % (11.5-15.5); WBC 7.8 k/uL (3.8-10.6)
--- NOTE | 2022-08-01 13:10 | XR ---
EXAMINATION TYPE: XR Hip LT and AP Pelvis DATE OF EXAM: 08/01/2022 COMPARISON: NONE HISTORY: Trauma 10 days ago TECHNIQUE: A single AP view of the pelvis is obtained. Two views of the left hip are obtained. FINDINGS: There is no acute fracture/dislocation evident in the pelvis. The hip and sacroiliac join ts appear symmetric and unremarkable. The overlying soft tissue appears unremarkable. Two views of left hip show no acute fracture or dislocation. No focal lytic or sclerotic lesion seen in the proximal left femur. There is marked degenerative change of the right hip with marked joint space narrowing and hypertroph ic spurring. There is mild to moderate degenerative change of the left hip. There are multiple clips in the pelvis indicating prior surgery possibly prostatectomy. . IMPRESSION: There is no acute fracture or dislocation in the pelvis or left hip.
[2022-08-01 13:11] LABS: Calcium 8.8 mg/dL (8.4-10.2); Potassium 4.1 mmol/L (3.5-5.1)
[2022-08-01 13:14] LABS: Appearance,Urine Clear (Clear); Bilirubin,Urine Negative (Negative); Blood,Urine Trace (Negative); Color,Urine Yellow; Glucose,Urine (UA) Negative (Negative); Ketones,Urine Negative (Negative); Leukocyte Esterase,Urine Negative (Negative); Mucus,Urine Rare /hpf; Nitrite,Urine Negative (Negative); PH, Urine 5.5 (5.0-8.0); Protein,Urine Trace (Negative); RBC,Urine 1 /hpf (0-5); Specific Gravity,Urine 1.029 (1.001-1.035); Squamous Epithelial Cell,Urine <1 /hpf (0-4); Urobilinogen,Urine <2.0 mg/dL (<2.0); WBC,Urine 15 /hpf (0-5)
--- NOTE | 2022-08-01 13:18 | CT ---
EXAMINATION TYPE: CT brain niko [email or web address] DATE OF EXAM: 08/01/2022 COMPARISON: 04/06/2022 HISTORY: Fall CT DLP: 448.3 mGycm Automated exposure control for dose reduction was used. TECHNIQUE: CT scan of the head and cervical spine are performed without contrast. FINDINGS: There is no acute intracranial hemorrhage, mass effect, or midline shift identified. The ventricles, basal cisterns and sulci over the convexities are moderately to markedly enlarged consist ent with moderate to marked atrophy but appropriate for the patient's age. No abnormal density is see n throughout the brain parenchyma. There are marked inflammatory changes in the right maxillary sinu s. There is posterior metallic fusion from C5 through T2. There are advanced degenerative changes throughout the cervical spine but no evidence of acute trauma . The bony cervical canal is moderately compromised at the C5-6 level.. IMPRESSION: 1. There is no acute fracture or dislocation evident in the cervical spine. Advanced degenerative erick nges and posterior metallic fusion from C5 to T2 2. No acute intracranial hemorrhage, mass effect, or midline shift is seen. Marked atrophy appropriat e for the patient's age.
[2022-08-01 14:08] VITALS: BP 107/66; PULSE 94
== END 2022-08-01 14:08 | disposition home or self-care (01) ==
LOC: EC 11:21
DX: R79.89 Other specified abnormal findings of blood chemistry (principal); K21.9 Gastro-esophageal reflux disease without esophagitis; I10 Essential (primary) hypertension; R41.82 Altered mental status, unspecified; Z86.73 Personal history of transient ischemic attack (TIA), and cerebral infarction without residual deficits; Z79.82 Long term (current) use of aspirin; Z79.899 Other long term (current) drug therapy; W18.30XA Fall on same level, unspecified, initial encounter; Y92.002 Bathroom of unspecified non-institutional (private) residence as the place of occurrence of the external cause
CPT/HCPCS: 99284; 96372; 36415; 80048; 85025; 81001; 87086; 73502; 72125; 70450; J2270

== ENCOUNTER 2022-08-25 07:20 | Emergency (ER) | payer OTHER, MEDICARE ==
--- NOTE | 2022-08-25 07:50 | ED ---
General Adult HPI - General Chief complaint: Back Pain/Injury Stated complaint: back pain Time Seen by Provider: 08/25/22 07:21 Source: patient, EMS Mode of arrival: EMS Limitations: no limitations - History of Present Illness Initial comments: Dictation was produced using [employer] dictation software. please excuse any grammatical, word or spelling errors. Chief Complaint: 86-year-old male presents emergency department for back pain History of Present Illness: History present illness obtained from nursing received report from EMS and patient. Patient however is a very limited historian. He does have history of dementia. To the emergency department for back pain. Patient has had back pain for several years. Patient denies any fever. Denies any issues with urinating or stooling. Patient allegedly has a public guardian. According to EMS patient lives by himself. Denies any anesthesia Unable to obtain secondary to mental status. PHYSICAL EXAM: General Impression: Alert and oriented x2/4, acute distress secondary to pain, lying left lateral recumbent HEENT: Normocephalic atraumatic, extra-ocular movements intact, pupils equal and reactive to light bilaterally, mucous membranes moist. Cardiovascular: Heart regular rate and rhythm Chest: Able to complete full sentences, no retractions, no tachypnea Abdomen: abdomen soft, non-tender, non-distended, no organomegaly Musculoskeletal: Pulses present and equal in all extremities, no peripheral edema Back: Point tenderness throughout the whole back Motor: no focal deficits noted Neurological: CN II-XII grossly intact, no focal motor or sensory deficits noted Skin: Intact with no visualized rashes ED course: 86-year-old male presents emergency department for alleged atraumatic back pain. Chart review was performed. Patient allegedly has history of falls. According to history present illness obtained from EMS patient lives in a facility where there is minimal assistance. Nursing notes and chart review was performed My EKG interpretation: Ventricular rate 87, sinus rhythm,. Interval 160, QRS 81, QTc 380. No UT prolongation, no QTC prolongation, no ST or T-wave changes noted. EKG compared to 04/12/2022 showing no changes. Overall, this EKG is unremarkable Given the patient is a unreliable historian. Workup was pursued. Laboratory evaluation obtained. CBC, coag panel, metabolic panel is unremarkable. Serum alcohol is negative. Computed tomography scan of the head and C-spine shows no acute process. Thoracolumbar spine CT shows no acute processes. Patient will be discharged. He is given analgesics. Patient advised follow-up with primary care doctor. - Related Data Home Medications Medication Instructions Recorded Confirmed Lisinopril-Hctz 20-25 mg 1 tab PO DAILY 07/07/18 09/13/19 [Zestoretic 20-25] Aspirin EC [Ecotrin Low Dose] 81 mg PO DAILY 09/13/19 09/13/19 Cholecalciferol (Vitamin D3) 2,000 unit PO DAILY 09/13/19 09/13/19 [Vitamin D3] Folic Acid 1 mg PO DAILY 09/13/19 09/13/19 Naproxen 500 mg PO DAILY 09/13/19 09/13/19 Simvastatin [Zocor] 20 mg PO HS 09/13/19 09/13/19 Thiamine [Vitamin B-1] 100 mg PO DAILY 09/13/19 09/13/19 Previous Rx's Medication Instructions Recorded Cephalexin [Keflex] 500 mg PO Q8HR #21 cap 09/14/19 Famotidine [Pepcid] 20 mg PO BID #30 tab 09/14/19 Metoprolol Succinate [Kapspargo 50 mg PO DAILY #30 cap.spr.24 09/14/19 Sprinkle] Allergies Allergy/AdvReac Type Severity Reaction Status Date / Time No Known Allergies Allergy Verified 08/25/22 07:26 Review of Systems ROS Statement: Those systems with pertinent positive or pertinent negative responses have been documented in the HPI. ROS Other: All systems not noted in ROS Statement are negative. Past Medical History Past Medical History: Cancer, CVA/TIA, Dementia, GERD/Reflux, Hearing Disorder / Deafness, Hypertension, Prostate Disorder Additional Past Medical History / Comment(s): CVA with R eye vision changes, prostate cancer with prostatectomy, bilateral tinnitis, constipation, ETOH abuse, past cervical fracture with surgery/has limited ROM, falls. History of Any Multi-Drug Resistant Organisms: None Reported Past Surgical History: Orthopedic Surgery, Prostate Surgery Additional Past Surgical History / Comment(s): Prostatectomy, cervical surgery with plate/screws, colonoscopy, bilateral cataract removals/lens implants. Past Anesthesia/Blood Transfusion Reactions: No Reported Reaction Past Psychological History: No Psychological Hx Reported Smoking Status: Never smoker Past Alcohol Use History: Occasional Past Drug Use History: None Reported - Past Family History Father Family Medical History: Diabetes Mellitus Additional Family Medical History / Comment(s): Father may have had cancer but pt is not certain. Mother Family Medical History: Cancer Additional Family Medical History / Comment(s): Breast cancer General Exam Limitations: no limitations Course Vital Signs 08/25/22 08/25/22 07:21 09:01 Temperature 98.4 F 97.8 F Pulse Rate 99 85 Respiratory 18 16 Rate Blood Pressure 152/64 126/78 O2 Sat by Pulse 97 98 Oximetry Medical Decision Making - Lab Data Result diagrams: 08/25/22 08:18 08/25/22 08:18 Lab Results 08/25/22 08/25/22 08/25/22 Range/Units 08:18 08:18 08:18 WBC 6.2 (3.8-10.6) k/uL RBC 4.03 L (4.30-5.90) m/uL Hgb 12.7 L (13.0-17.5) gm/dL Hct 38.3 L (39.0-53.0) % MCV 95.0 (80.0-100.0) fL MCH 31.6 (25.0-35.0) pg MCHC 33.3 (31.0-37.0) g/dL RDW 13.3 (11.5-15.5) % Plt Count 346 (150-450) k/uL MPV 7.6 Neutrophils % 71 % Lymphocytes % 18 % Monocytes % 7 % Eosinophils % 2 % Basophils % 0 % Neutrophils # 4.4 (1.3-7.7) k/uL Lymphocytes # 1.1 (1.0-4.8) k/uL Monocytes # 0.5 (0-1.0) k/uL Eosinophils # 0.1 (0-0.7) k/uL Basophils # 0.0 (0-0.2) k/uL PT 10.5 (9.0-12.0) sec INR 1.0 (<1.2) APTT 24.5 (22.0-30.0) sec Sodium 140 (137-145) mmol/L Potassium 4.5 (3.5-5.1) mmol/L Chloride 107 (98-107) mmol/L Carbon Dioxide 27 (22-30) mmol/L Anion Gap 6 mmol/L BUN 21 H (9-20) mg/dL Creatinine 0.83 (0.66-1.25) mg/dL Est GFR (CKD-EPI)AfAm >90 (>60 ml/min/1.73 sqM) Est GFR (CKD-EPI)NonAf 80 (>60 ml/min/1.73 sqM) Glucose 103 H (74-99) mg/dL Calcium 8.7 (8.4-10.2) mg/dL Serum Alcohol <10 mg/dL Disposition Clinical Impression: Back pain Disposition: HOME SELF-CARE Condition: Good Instructions (If sedation given, give patient instructions): Chronic Back Pain (DC) Is patient prescribed a controlled substance at d/c from ED?: No Referrals: [facility],Clinic [Primary Care Provider] - 1-2 days Time of Disposition: 09:20
[2022-08-25] MEDS ORDERED: MORPHINE SULFATE 4 MG/ML SYRINGE IV STA (07:53)
[2022-08-25 08:34] LABS: Basophils % (A) 0 %; Eosinophils # (A) 0.1 k/uL (0-0.7); Eosinophils % (A) 2 %; HCT 38.3 % (39.0-53.0); HGB 12.7 gm/dL (13.0-17.5); Lymphocytes # (A) 1.1 k/uL (1.0-4.8); Lymphocytes % (A) 18 %; MCH 31.6 pg (25.0-35.0); MCHC 33.3 g/dL (31.0-37.0); Mean Platelet Volume 7.6; Monocytes # (A) 0.5 k/uL (0-1.0); Monocytes % (A) 7 %; Neutrophils # (A) 4.4 k/uL (1.3-7.7); Neutrophils % (A) 71 %; Platelet Count 346 k/uL (150-450); RBC 4.03 m/uL (4.30-5.90); RDW 13.3 % (11.5-15.5); WBC 6.2 k/uL (3.8-10.6)
[2022-08-25 08:39] LABS: Partial Thromboplastin Time 24.5 sec (22.0-30.0); Prothrombin Time 10.5 sec (9.0-12.0)
[2022-08-25 08:49] LABS: African American GFR (CKD) >90 (>60 ml/min/1.73 sqM); Alcohol <10 mg/dL; Anion Gap 6 mmol/L; Blood Urea Nitrogen 21 mg/dL (9-20); Calcium 8.7 mg/dL (8.4-10.2); Carbon Dioxide 27 mmol/L (22-30); Chloride 107 mmol/L (98-107); Glucose 103 mg/dL (74-99); Non-African American GFR(CKD) 80 (>60 ml/min/1.73 sqM); Potassium 4.5 mmol/L (3.5-5.1); Sodium 140 mmol/L (137-145)
--- NOTE | 2022-08-25 08:51 | CT ---
EXAMINATION TYPE: CT brain niko zimmerman DATE OF EXAM: 08/25/2022 COMPARISON: 08/01/2022 HISTORY: frequent falls CT DLP: 1624.[address] of the brain was performed. The ventricles, basal cisterns and sulci overlying the cerebral convexities demonstrate mild enlargem ent. There is no evidence for intracranial hemorrhage or sulcal effacement. There is decreased attenuatio n about the periventricular white matter and deep white matter of both cerebral hemispheres, compatib le with chronic small vessel ischemia. No mass effects are seen. If symptoms persist consider MRI. Osseous calvarium is intact. Inspissated mucus right maxillary sinus. Metallic artifact right globe. IMPRESSION: 1. Age related atrophic and chronic small vessel ischemic change without acute intracranial process seen at this time. CT Cervical Spine: Unenhanced CT of the cervical spine was performed with bone and soft tissue window settings submitted . Coronal and sagittal reconstruction is obtained. There is normal alignment and prevertebral soft tissues. No evidence for acute cervical fracture . St able fusion changes thoracolumbar junction. Scattered degenerative disc disease and spondylosis. Ximena pical scarring. IMPRESSION: 1. No evidence for acute fracture or subluxation of the cervical spine.
--- NOTE | 2022-08-25 08:59 | CT ---
EXAMINATION TYPE: CT thor lumbar spine wo con DATE OF EXAM: 08/25/2022 COMPARISON: None HISTORY: frequent falls CT DLP: 1673.6 mGycm Automated exposure control for dose reduction was used. Unenhanced CT of the thoracolumbar spine was performed with bone and soft tissue windows submitted for review. FINDINGS: Postoperative fusion is noted at the cervicothoracic level. There is accentuated thoracic kyphosis. S evere multilevel degenerative disc disease with spondylosis. Central stenosis at T9-10. Central steno sis also noted at T10-11. Within the lumbar spine or central stenosis identified at L2-3. No fracture or malalignment evident. IMPRESSION: MULTILEVEL DEGENERATIVE DISC DISEASE WITH MULTILEVEL STENOSIS. NO FRACTURE OR MALALIGNMENT.
[2022-08-25 09:03] VITALS: BP 126/78; PULSE 85; RESP 16; TEMP 97.8
== END 2022-08-25 10:07 | disposition home or self-care (01) ==
LOC: EC 07:20 → EEVIPCON 07:20 → EC 10:07
DX: M54.50 Low back pain, unspecified (principal); I10 Essential (primary) hypertension; G45.9 Transient cerebral ischemic attack, unspecified; K21.9 Gastro-esophageal reflux disease without esophagitis; Z79.82 Long term (current) use of aspirin; Z79.899 Other long term (current) drug therapy
CPT/HCPCS: 36415; 93005; 80048; 85025; 85610; 85730; 80320; 72128; 72125; 72131; 70450; 99285; 96374; J2270

== ENCOUNTER 2024-01-31 15:51 | Inpatient (IN) | payer MEDICARE, OTHER ==
--- NOTE | 2024-01-31 16:16 | ED ---
General Adult HPI - General Chief complaint: Fall Stated complaint: unresponsive Time Seen by Provider: 01/31/24 15:57 Source: patient, RN notes reviewed Mode of arrival: EMS Limitations: no limitations - History of Present Illness Initial comments: Patient is an 88-year-old male presenting from [facility] after being found on the ground. Last seen around 10:00 last night. Patient was found on his left side in the bathroom. Patient does not recall falling. Patient is unclear if he could have passed out. Patient states he does have some left arm weakness and is unclear if he had this previously. Patient is a poor historian. Patient states the left hand is normally somewhat contracted secondary to arthritis. Patient does have some discomfort left hip region. Patient was found covered in stool. - Related Data Home Medications Medication Instructions Recorded Confirmed Cholecalciferol [Vitamin D3 (25 25 mcg PO DAILY 01/31/24 01/31/24 Mcg = 1000 Iu)] Melatonin 3 mg PO HS 01/31/24 01/31/24 Polyvinyl Alcohol/Povidone [Clear 1 drop BOTH EYES QID 01/31/24 01/31/24 Eyes Natural Tears Drop] lisinopriL [Zestril] 10 mg PO DAILY 01/31/24 01/31/24 Allergies Allergy/AdvReac Type Severity Reaction Status Date / Time No Known Allergies Allergy Verified 01/31/24 17:00 Review of Systems ROS Statement: Those systems with pertinent positive or pertinent negative responses have been documented in the HPI. ROS Other: All systems not noted in ROS Statement are negative. Constitutional: Denies: fever Eyes: Denies: eye pain ENT: Denies: ear pain Respiratory: Denies: cough Cardiovascular: Denies: chest pain Endocrine: Denies: fatigue Gastrointestinal: Denies: abdominal pain Neurological: Reports: as per HPI, weakness. Denies: confusion Past Medical History Past Medical History: Cancer, CVA/TIA, Dementia, GERD/Reflux, Hearing Disorder / Deafness, Hypertension, Prostate Disorder Additional Past Medical History / Comment(s): CVA with R eye vision changes, prostate cancer with prostatectomy, bilateral tinnitis, constipation, ETOH abuse, past cervical fracture with surgery/has limited ROM, falls. History of Any Multi-Drug Resistant Organisms: None Reported Past Surgical History: Orthopedic Surgery, Prostate Surgery Additional Past Surgical History / Comment(s): Prostatectomy, cervical surgery with plate/screws, colonoscopy, bilateral cataract removals/lens implants. Past Anesthesia/Blood Transfusion Reactions: No Reported Reaction Past Psychological History: No Psychological Hx Reported Smoking Status: Never smoker Past Alcohol Use History: Occasional Past Drug Use History: None Reported - Past Family History Father Family Medical History: Diabetes Mellitus Additional Family Medical History / Comment(s): Father may have had cancer but pt is not certain. Mother Family Medical History: Cancer Additional Family Medical History / Comment(s): Breast cancer General Exam Limitations: no limitations General appearance: alert Head exam: Present: other (Stage II skin ulcer approximately 3 x 6 cm left temporal) Eye exam: Present: PERRL, EOMI, conjunctival injection ENT exam: Present: mucous membranes dry Neck exam: Present: normal inspection. Absent: tenderness Respiratory exam: Present: normal lung sounds bilaterally Cardiovascular Exam: Present: tachycardia Expanded Peripheral pulses: 2+: Radial (L) GI/Abdominal exam: Present: soft. Absent: tenderness Extremities exam: Present: full ROM, tenderness (Mild left posterior hip), other (Left hand appears partially contracted however patient is able to fully extend it.) Neurological exam: Present: alert Expanded Neurological exam: Present: protecting the airway Patient oriented to: Present: person. Absent: place, time Cranial nerves: EOM's Intact: Normal Sensory exam: Upper Extremity Light Touch: Normal, Lower Extremity Light Touch: Normal Motor strength exam: RUE: 5, LUE: 4, RLE: 5, LLE: 5 Eye Response: (4) open spontaneously Motor Response: (6) obeys commands Verbal Response: (4) confused conversation Psychiatric exam: Present: normal affect, normal mood Skin exam: Present: other (Left anterior chest approximately 14 x 7 cm stage II ulcer. Bilateral knee with skin breakdown. Left shoulder with area of ulcer approximately 5 x 5 cm. Left distal forearm and hand with skin breakdown with evidence of bullae and superficial skin loss. Distally the extremity is neurovascular int) Expanded Type of lesion: Present: other (Cap refill distant left hand 3 seconds) Course Vital Signs 01/31/24 01/31/24 01/31/24 15:53 16:40 19:25 Temperature 94.7 F L 96.8 F L 97.7 F Pulse Rate 120 H 120 H 106 H Respiratory 20 24 16 Rate Blood Pressure 124/86 138/99 118/79 O2 Sat by Pulse 96 95 Oximetry - Reevaluation(s) Reevaluation #1: 01/31/24 16:18 Left forearm patient does have some pain however states it is mild without touch and does not appear to be out of proportion. No paresthesias. No pallor. No pulselessness. Left arm weakness appears diffuse and not limited to the area of involvement or distal. I do not have concern for compartment syndrome at this time EKG Findings - EKG Results: EKG: interpreted by MARYD (Left axis. Poor R wave progression.), sinus rhythm, normal ST/T EKG shows: tachycardia Medical Decision Making - Medical Decision Making Was pt. sent in by a medical professional or institution (, PA, DOWEL INSPECTOR, urgent care, hospital, or jail...) When possible be specific @ -Patient was sent from nursing facility Did you speak to anyone other than the patient for history (EMS, parent, family, police, friend...)? What history was obtained from this source @ -EMS helps provide history as patient is somewhat a poor historian Did you review nursing and triage notes (agree or disagree)? Why? @ -I reviewed and agree with nursing and triage notes Were old charts reviewed (outside hosp., previous admission, EMS record, old EKG, old radiological studies, urgent care reports/EKG's, jail records)? Report findings @ -No old charts were reviewed Differential Diagnosis (chest pain, altered mental status, abdominal pain women, abdominal pain men, vaginal bleeding, weakness, fever, dyspnea, syncope, h eadache, dizziness, GI bleed, back pain, seizure, CVA, palpatations, mental health, musculoskeletal)? @ -Differential Weakness: Hypoglycemia, shock, sepsis, hyponatremia, anemia, infection, ND, ETOH, adverse medicine reaction, overdose, stroke, this is not meant to be an all-inclusive list. EKG interpreted by me (3pts min.). @ -As above X-rays interpreted by me (1pt min.). @ -X-ray left hip and pelvis without obvious fracture. Abdominal x-ray without obvious fracture. Chest x-ray shows no acute process. CT interpreted by me (1pt min.). @ -CT scan brain and cervical spine without acute abnormality. Chronic changes. U/S interpreted by me (1pt. min.). @ -None done What testing was considered but not performed or refused? (CT, X-rays, U/S, labs)? Why? @ -None What meds were considered but not given or refused? Why? @ -None Did you discuss the management of the patient with other professionals (professionals i.e. , PA, DOWEL INSPECTOR, lab, RT, psych nurse, case management social worker, printing gray cloth tender, teacher, penal officer, case repairer)? Give summary @ -Case was discussed with Dr. Galindo who will admit covering this [place] patient Was smoking cessation discussed for >3mins.? @ -No Was critical care preformed (if so, how long)? @ -33 minutes critical care Were there social determinants of health that impacted care today? How? (Homelessness, low income, unemployed, alcoholism, drug addiction, transpor tation, low edu. Level, literacy, decrease access to med. care, [facility], rehab)? @ -No Was there de-escalation of care discussed even if they declined (Discuss DNR or withdrawal of care, Hospice)? DNR status @ -No What co-morbidities impacted this encounter? (DM, HTN, Smoking, COPD, CAD, Cancer, CVA, ARF, Chemo, Hep., AIDS, mental health diagnosis, sleep apnea, morbid obesity)? @ -None Was patient admitted / discharged? Hospital course, mention meds given and route, prescriptions, significant lab abnormalities, going to OR and other pertinent info. @ -Patient reevaluated and updated. Patient will be admitted with vascular consult for wound care. Admission orders written. Undiagnosed new problem with uncertain prognosis? @ -No Drug Therapy requiring intensive monitoring for toxicity (Heparin, Nitro, Insulin, Cardizem)? @ -No Were any procedures done? @ -No Diagnosis/symptom? @ -Rhabdomyolysis. Acute kidney injury. Multiple pressure ulcers Acute, or Chronic, or Acute on Chronic? @ -Acute, acute, acute Uncomplicated (without systemic symptoms) or Complicated (systemic symptoms)? @ -Default Side effects of treatment? @ -No Exacerbation, Progression, or Severe Exacerbation? @ -No Poses a threat to life or bodily function? How? (Chest pain, USA, ND, pneumonia, PE, COPD, DKA, ARF, appy, cholecystitis, CVA, Diverticulitis, Homicidal, Suicidal, threat to staff... and all critical care pts) @ -No - Lab Data Result diagrams: 01/31/24 16:42 01/31/24 16:42 Lab Results 01/31/24 01/31/24 01/31/24 Range/Units 16:42 16:42 16:42 WBC 15.4 H (3.8-10.6) k/uL RBC 5.24 (4.30-5.90) m/uL Hgb 16.0 (13.0-17.5) gm/dL Hct 50.3 (39.0-53.0) % MCV 96.1 (80.0-100.0) fL MCH 30.5 (25.0-35.0) pg MCHC 31.7 (31.0-37.0) g/dL RDW 13.2 (11.5-15.5) % Plt Count 344 (150-450) k/uL MPV 9.0 Neutrophils % 86 % Lymphocytes % 6 % Monocytes % 6 % Eosinophils % 1 % Basophils % 0 % Neutrophils # 13.3 H (1.3-7.7) k/uL Lymphocytes # 0.9 L (1.0-4.8) k/uL Monocytes # 0.9 (0-1.0) k/uL Eosinophils # 0.1 (0-0.7) k/uL Basophils # 0.0 (0-0.2) k/uL PT 11.4 (10.0-12.5) sec INR 1.0 (<1.2) APTT 23.4 (22.0-30.0) sec Sodium (137-145) mmol/L Potassium (3.5-5.1) mmol/L Chloride (98-107) mmol/L Carbon Dioxide (22-30) mmol/L Anion Gap mmol/L BUN (9-20) mg/dL Creatinine (0.66-1.25) mg/dL Est GFR (CKD-EPI)AfAm (>60 ml/min/1.73 sqM) Est GFR (CKD-EPI)NonAf (>60 ml/min/1.73 sqM) Glucose (74-99) mg/dL Plasma Lactic Acid Wilmer (0.7-2.0) mmol/L Calcium (8.4-10.2) mg/dL Magnesium (1.6-2.3) mg/dL Total Bilirubin (0.2-1.3) mg/dL AST (17-59) U/L ALT (4-49) U/L Alkaline Phosphatase (38-126) U/L Creatine Kinase (55-170) U/L Troponin I (0.000-0.034) ng/mL Total Protein (6.3-8.2) g/dL Albumin (3.5-5.0) g/dL Urine Color Yellow Urine Appearance Clear (Clear) Urine pH 5.5 (5.0-8.0) Ur Specific Hamlin 1.027 (1.001-1.035) Urine Protein 1+ H (Negative) Urine Glucose (UA) Negative (Negative) Urine Ketones 1+ H (Negative) Urine Blood Small H (Negative) Urine Nitrite Negative (Negative) Urine Bilirubin Negative (Negative) Urine Urobilinogen <2.0 (<2.0) mg/dL Ur Leukocyte Esterase Negative (Negative) Urine RBC 5 (0-5) /hpf Urine WBC 1 (0-5) /hpf Ur Squamous Epith Cells <1 (0-4) /hpf Urine Bacteria Rare H (None) /hpf Hyaline Casts 7 H (0-2) /lpf Urine Mucus Few H (None) /hpf 01/31/24 01/31/24 01/31/24 Range/Units 16:42 16:42 16:42 WBC (3.8-10.6) k/uL RBC (4.30-5.90) m/uL Hgb (13.0-17.5) gm/dL Hct (39.0-53.0) % MCV (80.0-100.0) fL MCH (25.0-35.0) pg MCHC (31.0-37.0) g/dL RDW (11.5-15.5) % Plt Count (150-450) k/uL MPV Neutrophils % % Lymphocytes % % Monocytes % % Eosinophils % % Basophils % % Neutrophils # (1.3-7.7) k/uL Lymphocytes # (1.0-4.8) k/uL Monocytes # (0-1.0) k/uL Eosinophils # (0-0.7) k/uL Basophils # (0-0.2) k/uL PT (10.0-12.5) sec INR (<1.2) APTT (22.0-30.0) sec Sodium 148 H (137-145) mmol/L Potassium 4.2 (3.5-5.1) mmol/L Chloride 110 H (98-107) mmol/L Carbon Dioxide 27 (22-30) mmol/L Anion Gap 11 mmol/L BUN 77 H (9-20) mg/dL Creatinine 1.02 (0.66-1.25) mg/dL Est GFR (CKD-EPI)AfAm 76 (>60 ml/min/1.73 sqM) Est GFR (CKD-EPI)NonAf 66 (>60 ml/min/1.73 sqM) Glucose 107 H (74-99) mg/dL Plasma Lactic Acid Wilmer 3.0 H* (0.7-2.0) mmol/L Calcium 9.0 (8.4-10.2) mg/dL Magnesium 2.6 H (1.6-2.3) mg/dL Total Bilirubin 0.9 (0.2-1.3) mg/dL AST 111 H (17-59) U/L ALT 54 H (4-49) U/L Alkaline Phosphatase 88 (38-126) U/L Creatine Kinase 2903 H* (55-170) U/L Troponin I 0.130 H* (0.000-0.034) ng/mL Total Protein 6.8 (6.3-8.2) g/dL Albumin 3.9 (3.5-5.0) g/dL Urine Color Urine Appearance (Clear) Urine pH (5.0-8.0) Ur Specific Hamlin (1.001-1.035) Urine Protein (Negative) Urine Glucose (UA) (Negative) Urine Ketones (Negative) Urine Blood (Negative) Urine Nitrite (Negative) Urine Bilirubin (Negative) Urine Urobilinogen (<2.0) mg/dL Ur Leukocyte Esterase (Negative) Urine RBC (0-5) /hpf Urine WBC (0-5) /hpf Ur Squamous Epith Cells (0-4) /hpf Urine Bacteria (None) /hpf Hyaline Casts (0-2) /lpf Urine Mucus (None) /hpf Disposition Clinical Impression: Rhabdomyolysis Disposition: ADMITTED IP TO THIS HOSP Condition: Serious Is patient prescribed a controlled substance at d/c from ED?: No Referrals: [facility],Clinic [Primary Care Provider] - 1-2 days Time of Disposition: 19:41
[2024-01-31] MEDS: SODIUM CHLORIDE 0.9% 1,000 ML IV STA (16:29)
[2024-01-31 16:59] LABS: Basophils % (A) 0 %; Eosinophils # (A) 0.1 k/uL (0-0.7); Eosinophils % (A) 1 %; HCT 50.3 % (39.0-53.0); Lymphocytes # (A) 0.9 k/uL (1.0-4.8); Lymphocytes % (A) 6 %; MCH 30.5 pg (25.0-35.0); MCHC 31.7 g/dL (31.0-37.0); MCV 96.1 fL (80.0-100.0); Monocytes # (A) 0.9 k/uL (0-1.0); Monocytes % (A) 6 %; Neutrophils # (A) 13.3 k/uL (1.3-7.7); Neutrophils % (A) 86 %; Platelet Count 344 k/uL (150-450); RBC 5.24 m/uL (4.30-5.90); RDW 13.2 % (11.5-15.5); WBC 15.4 k/uL (3.8-10.6)
[2024-01-31 17:06] LABS: Appearance,Urine Clear (Clear); Bacteria,Urine Rare /hpf; Bilirubin,Urine Negative (Negative); Blood,Urine Small (Negative); Color,Urine Yellow; Glucose,Urine (UA) Negative (Negative); Hyaline Casts,Urine 7 /lpf (0-2); Ketones,Urine 1+ (Negative); Leukocyte Esterase,Urine Negative (Negative); Mucus,Urine Few /hpf; Nitrite,Urine Negative (Negative); PH, Urine 5.5 (5.0-8.0); Protein,Urine 1+ (Negative); RBC,Urine 5 /hpf (0-5); Specific Gravity,Urine 1.027 (1.001-1.035); Squamous Epithelial Cell,Urine <1 /hpf (0-4); Urobilinogen,Urine <2.0 mg/dL (<2.0); WBC,Urine 1 /hpf (0-5)
[2024-01-31 17:08] LABS: Partial Thromboplastin Time 23.4 sec (22.0-30.0); Prothrombin Time 11.4 sec (10.0-12.5)
[2024-01-31 17:23] LABS: ALT 54 U/L (4-49); AST 111 U/L (17-59); African American GFR (CKD) 76 (>60 ml/min/1.73 sqM); Albumin 3.9 g/dL (3.5-5.0); Alkaline Phosphatase 88 U/L (38-126); Anion Gap 11 mmol/L; Blood Urea Nitrogen 77 mg/dL (9-20); Carbon Dioxide 27 mmol/L (22-30); Chloride 110 mmol/L (98-107); Glucose 107 mg/dL (74-99); Magnesium 2.6 mg/dL (1.6-2.3); Non-African American GFR(CKD) 66 (>60 ml/min/1.73 sqM); Potassium 4.2 mmol/L (3.5-5.1); Sodium 148 mmol/L (137-145); Total Bilirubin 0.9 mg/dL (0.2-1.3); Total Protein 6.8 g/dL (6.3-8.2)
--- NOTE | 2024-01-31 17:39 | CT ---
EXAMINATION TYPE: CT cervical spine wo con DATE OF EXAM: 01/31/2024 COMPARISON: 08/25/2022 HISTORY: 88-year-old male pt found down. weakness. Breast imaging due to position the pt was stuck in . TECHNIQUE: Contiguous axial scanning of the cervical spine without IV contrast. Coronal and sagittal reconstructions performed. CT DLP: 524.8 mGycm Automated exposure control for dose reduction was used. FINDINGS: No craniocervical junction abnormality, predental space widening, or prevertebral soft tissue swellin g. There is evidence of old healed fracture deformity at T1 with fixed grade 2/grade 3 anterolisthesis a t C7-T1. Extensive mature bony ankylosis across the cervical and thoracic spine. Posterior cervicothoracic fusion changes C5-T2 level. No acute fracture of the cervical spine is seen. 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 IMPRESSION: NO ACUTE FRACTURE SEEN OF THE CERVICAL SPINE. THERE IS EXTENSIVE MATURE BONY ANKYLOSIS INVOLVING THE ENTIRE VISUALIZED CERVICAL AND THORACIC SPINE WITH OLD FRACTURE SUBLUXATION AT C7-T1 WITH A FIXED GRADE 2, NEARLY GRADE 3 ANTEROLISTHESIS. PREVIOUS POSTERIOR FUSION HARDWARE C5-T2 LEVELS. SEVERE LONG-STANDING RIGHT MAXILLARY SINUSITIS.
[2024-01-31 17:45] LABS: Creatine Kinase 2903 U/L (55-170)
--- NOTE | 2024-01-31 18:22 | CT ---
EXAMINATION TYPE: CT brain wo con DATE OF EXAM: 01/31/2024 COMPARISON: 08/25/2022 HISTORY: 81-year-old male pain after fall, TECHNIQUE: Examination was done in axial plane without intravenous contrast. Coronal and sagittal r econstructions performed. CT DLP: 1213.4 mGycm Automated exposure control for dose reduction was used. FINDINGS: Prominent calvarial and skull base artifacts limits the exam. Left lateral scalp contusion. No underl sixto calvarial fracture. There is no evidence of acute intracranial hemorrhage, acute ischemic changes, mass, mass-effect, or extra-axial fluid collection. There is no effacement of cerebral sulci or basal subarachnoid cister ns. Mild hydrocephalus redemonstrated, Steve ratio calculated at 0.37. There is no midline shift. Gr ay-white matter distinction is preserved. Paranasal sinuses and mastoid air cells well pneumatized. Orbits and globes are intact. IMPRESSION: 1. Left lateral scalp contusion. There are prominent calvarial and skull base artifacts. Allowing for these limitations, no definite acute intracranial abnormality seen. 2. Mild hydrocephalus is unchanged, likely related to central cerebral atrophy.
--- NOTE | 2024-01-31 18:38 | XR ---
EXAMINATION TYPE: XR Hip LT and AP Pelvis DATE OF EXAM: 01/31/2024 6:16 PM CLINICAL INDICATION:Male, 88 years old with history of pain; PHH. Left ear pain fell 10 days ago COMPARISON: Radiographs 08/01/2022 TECHNIQUE: AP pelvis and 2 views of the left hip. FINDINGS: Pelvis appears symmetric and intact. Redemonstration of moderate to severe right and modera te left hip osteoarthropathy. No acute fracture lucency or dislocation is seen. Degenerative changes of the lower lumbar spine and SI joints also seen. Multiple clips in the pelvis likely from prostatectomy. IMPRESSION: Overall stable exam. No evidence of acute fracture or dislocation.
[2024-01-31] MEDS ORDERED: NALOXONE 0.4 MG/ML 1 ML VIAL IV PRN (19:41)
[2024-01-31] MEDS ORDERED: MORPHINE SULFATE 4 MG/ML SYRINGE IV PRN (19:41)
--- NOTE | 2024-01-31 19:42 | XR ---
EXAM: XR chest 1V portable CLINICAL INDICATION:Male, 88 years old with history of weak; PHH COMPARISON: None. TECHNIQUE: Chest single view. FINDINGS: Lines/tubes/devices: EKG leads overlie the chest. No indwelling lines are seen. Cardiomediastinum: Cardiac silhouette appears normal in size. Unremarkable mediastinal silhouette. Vasculature: No increased pulmonary vasculature. Lungs/pleura: Lung volumes are diminished, with crowding of lung markings and minor bibasilar opacities likely on t he basis of atelectasis. Otherwise no definite confluent consolidative process, sizable effusion, or pneumothorax demonstrated. Bones/soft tissues: Bony thorax appears grossly intact as seen. Regional soft tissues appear unremarkable. IMPRESSION: Low lung volume exam with hypoventilatory changes. Otherwise no acute findings.
[2024-01-31] MEDS: SODIUM CHLORIDE 0.9% 1,000 ML IV SCH (19:45)
--- NOTE | 2024-01-31 19:51 | XR ---
EXAMINATION TYPE: XR forearm LT, XR hand left DATE OF EXAM: 01/31/2024 6:16 PM CLINICAL INDICATION:Male, 88 years old with history of pain; PHH COMPARISON: TECHNIQUE: Left hand 3 views, left forearm 3 views. FINDINGS: Bone density appears slightly diminished. There are mild/moderate degenerative changes in the hand, a pparently greatest at the triscaphe joint. No evidence of acute fracture, dislocation, or osseous mohsen tructive process. Soft tissues are grossly radiographically unremarkable. No radiopaque foreign body is seen. Mild/moderate degenerative changes are seen at the elbow. The radius and ulna appear intact without e vidence of fracture or dislocation. Forearm soft tissues are unremarkable. No radiopaque foreign body is seen. IMPRESSION: No acute osseous abnormality of the left forearm or hand.
[2024-01-31] MEDS: FAMOTIDINE 20 MG TAB PO SCH (20:13)
[2024-01-31] MEDS: MELATONIN 3 MG TABLET PO SCH (20:13)
[2024-01-31] MEDS ORDERED: POLYVINYL ALCOHOL BOTH EYES SCH (22:00)
[2024-01-31] MEDS ORDERED: POVIDONE BOTH EYES SCH (22:00)
[2024-01-31] MEDS ORDERED: [UNRECOGNIZED DRUG - OTHER] BOTH EYES SCH (22:00)
[2024-02-01 02:51] LABS: ALT 52 U/L (4-49); African American GFR (CKD) 58 (>60 ml/min/1.73 sqM); Albumin 3.3 g/dL (3.5-5.0); Anion Gap 10 mmol/L; Blood Urea Nitrogen 93 mg/dL (9-20); Calcium 8.3 mg/dL (8.4-10.2); Carbon Dioxide 23 mmol/L (22-30); Chloride 115 mmol/L (98-107); Glucose 120 mg/dL (74-99); Non-African American GFR(CKD) 50 (>60 ml/min/1.73 sqM); Sodium 148 mmol/L (137-145); Total Bilirubin 0.9 mg/dL (0.2-1.3); Total Protein 5.9 g/dL (6.3-8.2)
[2024-02-01 03:25] LABS: AST 110 U/L (17-59); Alkaline Phosphatase 80 U/L (38-126); Magnesium 2.6 mg/dL (1.6-2.3); Potassium 4.1 mmol/L (3.5-5.1)
--- NOTE | 2024-02-01 07:07 | P.HPIM ---
History of Present Illness H&P Date: 01/31/24 Chief Complaint: Fall 88-year-old male with dementia patient is a resident of assisted living Patient unable to provide any meaningful history due to confusion. Patient as a wake and chatty however he is tangential and does not provide any meaningful history History obtained by discussing the case with ED doctors and nurses. Patient was brought in by EMS after being found wedged between the wall and his bed last time seen normal was about 18 hours prior. His baseline is unknown however there is reported dementia Currently patient is only moving his right upper extremity presenting with multiple ulcers all over his body he does not seem to be well taking care of. Workup in the ED revealed rhabdomyolysis CT of the brain no acute intracranial pathology Imaging did not reveal any acute fractures review of systems Unable to obtain due to patient mental status and advanced dementia on exam Constitutional: No acute distress, very friendly and chatty, pleasantly confused Eyes: Anicteric sclerae, moist conjunctiva, Pupils equal round reactive to light ENMT: Patient has large unstageable ulcer over the left forehead Neck: Neck seems to be stiff patient unable to move his neck no swelling no skin changes Lungs: Clear to auscultation Clear to percussion Normal respiratory effort, no accessory muscle use Cardiovascular: Heart regular in rate and rhythm, No murmurs, gallops, or rubs Trace bilateral peripheral leg edema Abdominal: Soft Nontender, no guarding, rebound or rigidity Abdomen moving with respiration Normoactive bowel sounds Skin: Multiple unstageable ulcers throughout his body. Left forehead left shoulder, left knee laterally, right knee medially, left hand circumferential ulcers with sloughing skin, left breast mass with purulent drainage and erythema submammary area with foul-smelling drainage, bilateral groin with macular rash central clearing and darker edges Extremities: Pedal pulses symmetrical capillary refill immediate Radial pulses intact on the right side difficult to assess on the left hand due to swelling and circumferential skin sloughing No calf tenderness Psychiatric: Alert and disoriented and confused Neuro patient only moving right upper extremity spontaneously. Unable to assess sensation patient unreliable. Patient unable to move any of his other extremities unknown baseline. Otherwise he is awake and make good eye contact and chatty Past Medical History Past Medical History: Cancer, CVA/TIA, Dementia, GERD/Reflux, Hearing Disorder / Deafness, Hypertension, Prostate Disorder Additional Past Medical History / Comment(s): CVA with R eye vision changes, prostate cancer with prostatectomy, bilateral tinnitis, constipation, ETOH abuse, past cervical fracture with surgery/has limited ROM, falls. History of Any Multi-Drug Resistant Organisms: None Reported Past Surgical History: Orthopedic Surgery, Prostate Surgery Additional Past Surgical History / Comment(s): Prostatectomy, cervical surgery with plate/screws, colonoscopy, bilateral cataract removals/lens implants. Past Anesthesia/Blood Transfusion Reactions: No Reported Reaction Past Psychological History: No Psychological Hx Reported Smoking Status: Never smoker Past Alcohol Use History: Occasional Past Drug Use History: None Reported - Past Family History Father Family Medical History: Diabetes Mellitus Additional Family Medical History / Comment(s): Father may have had cancer but pt is not certain. Mother Family Medical History: Cancer Additional Family Medical History / Comment(s): Breast cancer Medications and Allergies Home Medications Medication Instructions Recorded Confirmed Type Cholecalciferol [Vitamin D3 (25 25 mcg PO DAILY 01/31/24 01/31/24 History Mcg = 1000 Iu)] Melatonin 3 mg PO HS 01/31/24 01/31/24 History Polyvinyl Alcohol/Povidone [Clear 1 drop BOTH EYES QID 01/31/24 01/31/24 History Eyes Natural Tears Drop] lisinopriL [Zestril] 10 mg PO DAILY 01/31/24 01/31/24 History Allergies Allergy/AdvReac Type Severity Reaction Status Date / Time No Known Allergies Allergy Verified 01/31/24 17:00 Physical Exam Vitals: Vital Signs Temp Pulse Resp BP Pulse Ox 01/31/24 21:29 98.2 F 118 H 18 137/67 95 01/31/24 19:25 97.7 F 106 H 16 118/79 95 01/31/24 16:40 96.8 F L 120 H 24 138/99 01/31/24 15:53 94.7 F L 120 H 20 124/86 96 Intake and Output 01/31/24 01/31/24 01/31/24 06:59 14:59 22:59 Other: Weight 87.861 kg Results CBC & Chem 7: 01/31/24 16:42 02/01/24 02:20 Labs: Abnormal Lab Results - Last 24 Hours (Table) 01/31/24 01/31/24 01/31/24 Range/Units 16:42 16:42 16:42 WBC 15.4 H (3.8-10.6) k/uL Neutrophils # 13.3 H (1.3-7.7) k/uL Lymphocytes # 0.9 L (1.0-4.8) k/uL Sodium 148 H (137-145) mmol/L Chloride 110 H (98-107) mmol/L BUN 77 H (9-20) mg/dL Glucose 107 H (74-99) mg/dL Plasma Lactic Acid Wilmer (0.7-2.0) mmol/L Magnesium 2.6 H (1.6-2.3) mg/dL AST 111 H (17-59) U/L ALT 54 H (4-49) U/L Creatine Kinase 2903 H* (55-170) U/L Troponin I (0.000-0.034) ng/mL Urine Protein 1+ H (Negative) Urine Ketones 1+ H (Negative) Urine Blood Small H (Negative) Urine Bacteria Rare H (None) /hpf Hyaline Casts 7 H (0-2) /lpf Urine Mucus Few H (None) /hpf 01/31/24 01/31/24 01/31/24 Range/Units 16:42 16:42 20:32 WBC (3.8-10.6) k/uL Neutrophils # (1.3-7.7) k/uL Lymphocytes # (1.0-4.8) k/uL Sodium (137-145) mmol/L Chloride (98-107) mmol/L BUN (9-20) mg/dL Glucose (74-99) mg/dL Plasma Lactic Acid Wilmer 3.0 H* (0.7-2.0) mmol/L Magnesium (1.6-2.3) mg/dL AST (17-59) U/L ALT (4-49) U/L Creatine Kinase (55-170) U/L Troponin I 0.130 H* 0.125 H* (0.000-0.034) ng/mL Urine Protein (Negative) Urine Ketones (Negative) Urine Blood (Negative) Urine Bacteria (None) /hpf Hyaline Casts (0-2) /lpf Urine Mucus (None) /hpf 01/31/24 Range/Units 20:32 WBC (3.8-10.6) k/uL Neutrophils # (1.3-7.7) k/uL Lymphocytes # (1.0-4.8) k/uL Sodium (137-145) mmol/L Chloride (98-107) mmol/L BUN (9-20) mg/dL Glucose (74-99) mg/dL Plasma Lactic Acid Wilmer 3.2 H* (0.7-2.0) mmol/L Magnesium (1.6-2.3) mg/dL AST (17-59) U/L ALT (4-49) U/L Creatine Kinase (55-170) U/L Troponin I (0.000-0.034) ng/mL Urine Protein (Negative) Urine Ketones (Negative) Urine Blood (Negative) Urine Bacteria (None) /hpf Hyaline Casts (0-2) /lpf Urine Mucus (None) /hpf Assessment and Plan Assessment: 88-year-old male with dementia resident of assisted living coming in by EMS after being found wedged between his bed and wall last time seen was about 18 hours before this, unknown baseline I discussed the case with ED doctor and accepted the admission for rhabdomyolysis with multiple unstageable ulcers with anticipated length of stay more than 2 midnights Rhabdomyolysis secondary to fall Dehydration Nephro consult IV fluid hydration normal saline 130 cc/h Follow-up CK and renal function Monitor electrolytes Fall precautions CK level 2903 BUN 77 creatinine 1 Lactic acid 3 Multiple unstageable ulcers as documented Vascular surgery consult Local wound care Suspected left breast mass with foul smelling drainage Check blood cultures Start patient on Unasyn 3 g IV piggyback every 6 hours Surgery consult Elevated troponins, trending down Cardiology eval Cardiac monitoring EKG showed no acute ST changes Advanced dementia Unknown baseline PT/OT eval Chest x-ray no acute findings Annular skin lesion bilateral inner thighs Suspected fungal skin infection Clotrimazole topical twice daily CT of the brain no acute intracranial pathology CT cervical spine shows no acute fractures, there is 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
[2024-02-01 08:08] LABS: Basophils % (A) 0 %; Eosinophils % (A) 0 %; HCT 49.5 % (39.0-53.0); HGB 15.3 gm/dL (13.0-17.5); Lymphocytes % (A) 7 %; MCH 30.5 pg (25.0-35.0); MCHC 30.9 g/dL (31.0-37.0); MCV 98.5 fL (80.0-100.0); Mean Platelet Volume 8.6; Monocytes % (A) 7 %; Neutrophils # (A) 11.4 k/uL (1.3-7.7); Neutrophils % (A) 83 %; Platelet Count 295 k/uL (150-450); RBC 5.02 m/uL (4.30-5.90); WBC 13.6 k/uL (3.8-10.6)
[2024-02-01] MEDS: AMPICILLIN-SULBACTAM 3 GM in SODIUM CHLORIDE 0.9% 100 ML IVPB SCH (09:13)
[2024-02-01] MEDS: FAMOTIDINE 20 MG TAB PO SCH (09:15)
[2024-02-01] MEDS: HEPARIN SODIUM,PORCINE 5,000 UNIT/ML 1 ML VIAL SQ SCH (09:15)
[2024-02-01] MEDS: CHOLECALCIFEROL 25 MCG (1000 IU) TABLET PO SCH (09:15)
[2024-02-01] MEDS: CLOTRIMAZOLE 1% CREAM 30 GM TUBE TOPICAL SCH (10:11)
--- NOTE | 2024-02-01 11:47 | P.GSCN ---
History of Present Illness Consult date: 02/01/24 Reason for Consult: Multiple pressure ulcers Requesting physician: Renato Campos History of present illness: This is a 88-year-old male with a past medical history including dementia, CVA/TIA, hearing disorder, hypertension, history of alcohol abuse, prostate cancer status post prostatectomy and frequent falls who was brought in by EMS after being found on the floor for unsure amount of time. It was reported that patient was found on the floor wedged between the wall and his bed and last time seen well prior to finding him was at least 18 hours. Patient currently is poor historian most of the HPI is obtained from chart. Vascular surgery was consulted for multiple pressure ulcers. Patient is not able to provide any information on how long he has had these wounds, or if they were just from the fall. Patient does have a laceration to left side of his head from the fall. He denies any pain in his legs at this time, no shortness of breath, chest pain, nausea or vomiting. He does state that he is mostly bedbound but also states he gets up with assistance and a walker. Again he seems somewhat confused and unsure if patient is ambulatory. Patient had rhabdomyolysis and acute kidney injury on admission. Review of Systems ROS unobtainable: due to mental status Past Medical History Past Medical History: Cancer, CVA/TIA, Dementia, GERD/Reflux, Hearing Disorder / Deafness, Hypertension, Prostate Disorder Additional Past Medical History / Comment(s): CVA with R eye vision changes, prostate cancer with prostatectomy, bilateral tinnitis, constipation, ETOH abuse, past cervical fracture with surgery/has limited ROM, falls. History of Any Multi-Drug Resistant Organisms: None Reported Past Surgical History: Orthopedic Surgery, Prostate Surgery Additional Past Surgical History / Comment(s): Prostatectomy, cervical surgery with plate/screws, colonoscopy, bilateral cataract removals/lens implants. Past Anesthesia/Blood Transfusion Reactions: No Reported Reaction Past Psychological History: No Psychological Hx Reported Smoking Status: Never smoker Past Alcohol Use History: Occasional Past Drug Use History: None Reported - Past Family History Father Family Medical History: Diabetes Mellitus Additional Family Medical History / Comment(s): Father may have had cancer but pt is not certain. Mother Family Medical History: Cancer Additional Family Medical History / Comment(s): Breast cancer Medications and Allergies Home Medications Medication Instructions Recorded Confirmed Type Cholecalciferol [Vitamin D3 (25 25 mcg PO DAILY 01/31/24 01/31/24 History Mcg = 1000 Iu)] Melatonin 3 mg PO HS 01/31/24 01/31/24 History Polyvinyl Alcohol/Povidone [Clear 1 drop BOTH EYES QID 01/31/24 01/31/24 History Eyes Natural Tears Drop] lisinopriL [Zestril] 10 mg PO DAILY 01/31/24 01/31/24 History Allergies Allergy/AdvReac Type Severity Reaction Status Date / Time No Known Allergies Allergy Verified 01/31/24 17:00 Surgical - Exam Vital Signs Temp Pulse Resp BP Pulse Ox 94.7 F L 120 H 20 124/86 96 01/31/24 15:53 01/31/24 15:53 01/31/24 15:53 01/31/24 15:53 01/31/24 15:53 General appearance: The patient is alert, oriented, appears in no acute distress. HET: Head is normocephalic. Left scalp laceration. Neck: Supple. Heart: Regular. Lungs: Equal expansion, normal respiratory effort. Abdomen: Soft, nondistended. Extremities: Bilateral lower extremities warm to the touch, palpable femoral and PT pulses. Patient has multiple ulcers to his bilateral lower extremities around the knee and nina with eschar. Neurological: Patient is alert and oriented times 2. Results - Labs 02/01/24 07:32 02/01/24 02:20 Abnormal Lab Results - Last 24 Hours (Table) 01/31/24 01/31/24 01/31/24 Range/Units 16:42 16:42 16:42 WBC 15.4 H (3.8-10.6) k/uL MCHC (31.0-37.0) g/dL Neutrophils # 13.3 H (1.3-7.7) k/uL Lymphocytes # 0.9 L (1.0-4.8) k/uL Sodium 148 H (137-145) mmol/L Chloride 110 H (98-107) mmol/L BUN 77 H (9-20) mg/dL Creatinine (0.66-1.25) mg/dL Glucose 107 H (74-99) mg/dL Plasma Lactic Acid Wilmer (0.7-2.0) mmol/L Calcium (8.4-10.2) mg/dL Phosphorus (2.5-4.5) mg/dL Magnesium 2.6 H (1.6-2.3) mg/dL AST 111 H (17-59) U/L ALT 54 H (4-49) U/L Creatine Kinase 2903 H* (55-170) U/L Troponin I (0.000-0.034) ng/mL Total Protein (6.3-8.2) g/dL Albumin (3.5-5.0) g/dL Urine Protein 1+ H (Negative) Urine Ketones 1+ H (Negative) Urine Blood Small H (Negative) Urine Bacteria Rare H (None) /hpf Hyaline Casts 7 H (0-2) /lpf Urine Mucus Few H (None) /hpf 01/31/24 01/31/24 01/31/24 Range/Units 16:42 16:42 20:32 WBC (3.8-10.6) k/uL MCHC (31.0-37.0) g/dL Neutrophils # (1.3-7.7) k/uL Lymphocytes # (1.0-4.8) k/uL Sodium (137-145) mmol/L Chloride (98-107) mmol/L BUN (9-20) mg/dL Creatinine (0.66-1.25) mg/dL Glucose (74-99) mg/dL Plasma Lactic Acid Wilmer 3.0 H* (0.7-2.0) mmol/L Calcium (8.4-10.2) mg/dL Phosphorus (2.5-4.5) mg/dL Magnesium (1.6-2.3) mg/dL AST (17-59) U/L ALT (4-49) U/L Creatine Kinase (55-170) U/L Troponin I 0.130 H* 0.125 H* (0.000-0.034) ng/mL Total Protein (6.3-8.2) g/dL Albumin (3.5-5.0) g/dL Urine Protein (Negative) Urine Ketones (Negative) Urine Blood (Negative) Urine Bacteria (None) /hpf Hyaline Casts (0-2) /lpf Urine Mucus (None) /hpf 01/31/24 01/31/24 02/01/24 Range/Units 20:32 23:52 02:20 WBC (3.8-10.6) k/uL MCHC (31.0-37.0) g/dL Neutrophils # (1.3-7.7) k/uL Lymphocytes # (1.0-4.8) k/uL Sodium 148 H (137-145) mmol/L Chloride 115 H (98-107) mmol/L BUN 93 H (9-20) mg/dL Creatinine 1.27 H (0.66-1.25) mg/dL Glucose 120 H (74-99) mg/dL Plasma Lactic Acid Wilmer 3.2 H* 2.9 H* (0.7-2.0) mmol/L Calcium 8.3 L (8.4-10.2) mg/dL Phosphorus 5.0 H (2.5-4.5) mg/dL Magnesium 2.6 H (1.6-2.3) mg/dL AST 110 H (17-59) U/L ALT 52 H (4-49) U/L Creatine Kinase (55-170) U/L Troponin I (0.000-0.034) ng/mL Total Protein 5.9 L (6.3-8.2) g/dL Albumin 3.3 L (3.5-5.0) g/dL Urine Protein (Negative) Urine Ketones (Negative) Urine Blood (Negative) Urine Bacteria (None) /hpf Hyaline Casts (0-2) /lpf Urine Mucus (None) /hpf 02/01/24 02/01/24 Range/Units 02:20 07:32 WBC 13.6 H (3.8-10.6) k/uL MCHC 30.9 L (31.0-37.0) g/dL Neutrophils # 11.4 H (1.3-7.7) k/uL Lymphocytes # (1.0-4.8) k/uL Sodium (137-145) mmol/L Chloride (98-107) mmol/L BUN (9-20) mg/dL Creatinine (0.66-1.25) mg/dL Glucose (74-99) mg/dL Plasma Lactic Acid Wilmer (0.7-2.0) mmol/L Calcium (8.4-10.2) mg/dL Phosphorus (2.5-4.5) mg/dL Magnesium (1.6-2.3) mg/dL AST (17-59) U/L ALT (4-49) U/L Creatine Kinase (55-170) U/L Troponin I 0.120 H* (0.000-0.034) ng/mL Total Protein (6.3-8.2) g/dL Albumin (3.5-5.0) g/dL Urine Protein (Negative) Urine Ketones (Negative) Urine Blood (Negative) Urine Bacteria (None) /hpf Hyaline Casts (0-2) /lpf Urine Mucus (None) /hpf Diabetes panel 01/31/24 02/01/24 Range/Units 16:42 02:20 Sodium 148 H 148 H (137-145) mmol/L Potassium 4.2 4.1 (3.5-5.1) mmol/L Chloride 110 H 115 H (98-107) mmol/L Carbon Dioxide 27 23 (22-30) mmol/L BUN 77 H 93 H (9-20) mg/dL Creatinine 1.02 1.27 H (0.66-1.25) mg/dL Glucose 107 H 120 H (74-99) mg/dL Calcium 9.0 8.3 L (8.4-10.2) mg/dL AST 111 H 110 H (17-59) U/L ALT 54 H 52 H (4-49) U/L Alkaline Phosphatase 88 80 (38-126) U/L Total Protein 6.8 5.9 L (6.3-8.2) g/dL Albumin 3.9 3.3 L (3.5-5.0) g/dL Calcium panel 01/31/24 02/01/24 Range/Units 16:42 02:20 Calcium 9.0 8.3 L (8.4-10.2) mg/dL Phosphorus 5.0 H (2.5-4.5) mg/dL Albumin 3.9 3.3 L (3.5-5.0) g/dL Pituitary panel 01/31/24 02/01/24 Range/Units 16:42 02:20 Sodium 148 H 148 H (137-145) mmol/L Potassium 4.2 4.1 (3.5-5.1) mmol/L Chloride 110 H 115 H (98-107) mmol/L Carbon Dioxide 27 23 (22-30) mmol/L BUN 77 H 93 H (9-20) mg/dL Creatinine 1.02 1.27 H (0.66-1.25) mg/dL Glucose 107 H 120 H (74-99) mg/dL Calcium 9.0 8.3 L (8.4-10.2) mg/dL Adrenal panel 01/31/24 02/01/24 Range/Units 16:42 02:20 Sodium 148 H 148 H (137-145) mmol/L Potassium 4.2 4.1 (3.5-5.1) mmol/L Chloride 110 H 115 H (98-107) mmol/L Carbon Dioxide 27 23 (22-30) mmol/L BUN 77 H 93 H (9-20) mg/dL Creatinine 1.02 1.27 H (0.66-1.25) mg/dL Glucose 107 H 120 H (74-99) mg/dL Calcium 9.0 8.3 L (8.4-10.2) mg/dL Total Bilirubin 0.9 0.9 (0.2-1.3) mg/dL AST 111 H 110 H (17-59) U/L ALT 54 H 52 H (4-49) U/L Alkaline Phosphatase 88 80 (38-126) U/L Total Protein 6.8 5.9 L (6.3-8.2) g/dL Albumin 3.9 3.3 L (3.5-5.0) g/dL Assessment and Plan Assessment: 1. Fall on ground for undetermined amount of time 2. B/l lower extremity wounds 3. Dementia Plan: 1. Will obtain arterial ultrasound of bilateral lower extremities 2. Consult to wound clinic for local wound care 3. No plans at this time for surgical intervention Thank you for this consultation, we will continue to follow. The impression and plan of care has been dictated as directed. I performed a history and examination of this patient, discussed the same with the dictator. I agree with the dictator's note ,documented as a scribe. Any additional findings or plans will be noted.
--- NOTE | 2024-02-01 12:15 | P.CRDCN ---
History of Present Illness History of present illness: HISTORY OF PRESENT ILLNESS: This is a 88-year-old male with a past medical history significant for dementia and hypertension. 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 We have been ask ed to see the patient in consultation for abnormal troponins. Patient examined at the bedside in the emergency room. Patient was brought to the emergency room from his assisted living after being found on the floor for approximately 18 hours. The patient is being treated for rhabdomyolysis. The patient currently denies any chest pain or pressure. He denies any shortness of breath. He is somewhat confused at the time of examination. There is no family present to provide any additional HPI. Vital signs are stable. DIAGNOSTICS: - EKG reveals sinus tachycardia with no signs of acute ischemia. - Chest xray low lung volume exam with hypoventilatory changes. Otherwise no acute process. - Laboratory data: WBC 13.6. Hemoglobin 15.5. Platelet count 295. Sodium 148. Potassium 4.1. BUN 93. Creatinine 1.57. Troponin 0.130. 0.125. 0.120. Creatinine kinase 2903. - Current home cardiac medications include lisinopril 10 mg daily. - Most recent echocardiogram obtained in 2014 revealed ejection fraction 60 to 65%, mild TR, mild pulmonary hypertension REVIEW OF SYSTEMS: At the time of my exam: CONSTITUTIONAL: Denies fever or chills. HEENT: Denies blurred vision, vision changes, or eye pain. Denies hemoptysis CARDIOVASCULAR: Denies chest pain. Denies orthopnea. Denies PND. Denies palpitations RESPIRATORY: Denies shortness of breath. GASTROINTESTINAL: Denies abdominal pain. Denies nausea or vomiting. HEMATOLOGIC: Denies bleeding disorders. GENITOURINARY: Denies any blood in urine. SKIN: Denies pruitis. Denies rash. PHYSICAL EXAM: VITAL SIGNS: Reviewed. GENERAL: Well-developed in no acute distress. HEENT: Head is normocephalic. Pupils are equal, round. Sclerae anicteric. Mucous membranes of the mouth are moist. Neck supple. No JVD or thyromegaly LUNGS: Respirations even and unlabored. Lungs essentially clear to auscultation bilaterally. HEART: Regular rate and rhythm. S1 and S2 heard. ABDOMEN: Soft. Nondistended. Nontender. EXTREMITIES: Normal range of motion. No clubbing or cyanosis. Peripheral pulses intact. No lower extremity edema NEUROLOGIC: Awake and alert. ASSESSMENT: Status post fall with prolonged time laying on the floor Rhabdomyolysis Elevated troponins, flat, secondary to rhabdomyolysis, no evidence of acute coronary syndrome Multiple pressure ulcers Hypertension Dementia PLAN: Acute coronary event has been ruled out Obtain 2D echo to assess cardiac structure and function Continue with IV fluids. Continue to monitor kidney function and creatinine kinase Hold lisinopril at this time Further recommendations pending patient course Nurse practitioner note has been reviewed by physician. Signing provider agrees with the documented findings, assessment, and plan of care documented by [employer] DEVELOPER as a scribe. Past Medical History Past Medical History: Cancer, CVA/TIA, Dementia, GERD/Reflux, Hearing Disorder / Deafness, Hypertension, Prostate Disorder Additional Past Medical History / Comment(s): CVA with R eye vision changes, prostate cancer with prostatectomy, bilateral tinnitis, constipation, ETOH abuse, past cervical fracture with surgery/has limited ROM, falls. History of Any Multi-Drug Resistant Organisms: None Reported Past Surgical History: Orthopedic Surgery, Prostate Surgery Additional Past Surgical History / Comment(s): Prostatectomy, cervical surgery with plate/screws, colonoscopy, bilateral cataract removals/lens implants. Past Anesthesia/Blood Transfusion Reactions: No Reported Reaction Past Psychological History: No Psychological Hx Reported Smoking Status: Never smoker Past Alcohol Use History: Occasional Past Drug Use History: None Reported - Past Family History Father Family Medical History: Diabetes Mellitus Additional Family Medical History / Comment(s): Father may have had cancer but pt is not certain. Mother Family Medical History: Cancer Additional Family Medical History / Comment(s): Breast cancer Medications and Allergies Home Medications Medication Instructions Recorded Confirmed Type Cholecalciferol [Vitamin D3 (25 25 mcg PO DAILY 01/31/24 01/31/24 History Mcg = 1000 Iu)] Melatonin 3 mg PO HS 01/31/24 01/31/24 History Polyvinyl Alcohol/Povidone [Clear 1 drop BOTH EYES QID 01/31/24 01/31/24 History Eyes Natural Tears Drop] lisinopriL [Zestril] 10 mg PO DAILY 01/31/24 01/31/24 History Allergies Allergy/AdvReac Type Severity Reaction Status Date / Time No Known Allergies Allergy Verified 01/31/24 17:00 Physical Exam Vitals: Vital Signs Temp Pulse Resp BP Pulse Ox 02/01/24 05:44 98.8 F 109 H 18 119/93 97 02/01/24 02:12 110 H 16 110/62 96 02/01/24 01:06 99.0 F 112 H 16 111/64 94 L 01/31/24 23:56 98.6 F 94 18 110/68 97 01/31/24 22:45 98.6 F 01/31/24 22:44 110 H 16 131/74 95 01/31/24 21:29 98.2 F 118 H 18 137/67 95 01/31/24 19:25 97.7 F 106 H 16 118/79 95 01/31/24 16:40 96.8 F L 120 H 24 138/99 01/31/24 15:53 94.7 F L 120 H 20 124/86 96 Intake and Output 01/31/24 02/01/24 02/01/24 22:59 06:59 14:59 Other: Weight 87.861 kg Results 02/01/24 07:32 02/01/24 02:20 Cardiac Enzymes 01/31/24 01/31/24 01/31/24 Range/Units 16:42 16:42 20:32 AST 111 H (17-59) U/L Troponin I 0.130 H* 0.125 H* (0.000-0.034) ng/mL 02/01/24 02/01/24 Range/Units 02:20 02:20 AST 110 H (17-59) U/L Troponin I 0.120 H* (0.000-0.034) ng/mL Coagulation 01/31/24 Range/Units 16:42 PT 11.4 (10.0-12.5) sec APTT 23.4 (22.0-30.0) sec CBC 01/31/24 Range/Units 16:42 WBC 15.4 H (3.8-10.6) k/uL RBC 5.24 (4.30-5.90) m/uL Hgb 16.0 (13.0-17.5) gm/dL Hct 50.3 (39.0-53.0) % Plt Count 344 (150-450) k/uL Comprehensive Metabolic Panel 01/31/24 02/01/24 Range/Units 16:42 02:20 Sodium 148 H 148 H (137-145) mmol/L Potassium 4.2 4.1 (3.5-5.1) mmol/L Chloride 110 H 115 H (98-107) mmol/L Carbon Dioxide 27 23 (22-30) mmol/L BUN 77 H 93 H (9-20) mg/dL Creatinine 1.02 1.27 H (0.66-1.25) mg/dL Glucose 107 H 120 H (74-99) mg/dL Calcium 9.0 8.3 L (8.4-10.2) mg/dL AST 111 H 110 H (17-59) U/L ALT 54 H 52 H (4-49) U/L Alkaline Phosphatase 88 80 (38-126) U/L Total Protein 6.8 5.9 L (6.3-8.2) g/dL Albumin 3.9 3.3 L (3.5-5.0) g/dL Current Medications Generic Name Dose Route Start Last Admin Trade Name Freq PRN Reason Stop Dose Admin Acetaminophen 650 mg 01/31/24 19:41 Acetaminophen Tab 325 Mg Tab PO Q6HR PRN Mild Pain or Fever > 100.5 Cholecalciferol 25 mcg 02/01/24 09:00 Cholecalciferol 25 Mcg (1000 Iu) Tablet PO DAILY [facility] Clotrimazole 1 applic 02/01/24 09:00 Clotrimazole 1% Cream 30 Gm Tube TOPICAL BID [facility] Protocol Famotidine 20 mg 01/31/24 21:00 01/31/24 20:13 Famotidine 20 Mg Tab PO Not Given BID [facility] Heparin Sodium (Porcine) 5,000 unit 02/01/24 08:00 Heparin Sodium,Porcine 5,000 Unit/Ml 1 Ml Vial SQ Q8HR [facility] Sodium Chloride 1,000 mls @ 130 mls/hr 01/31/24 19:45 02/01/24 02:31 Saline 0.9% IV Not Given .[id number] [facility] Ampicillin Sodium/Sulbactam 100 mls @ 200 mls/hr 02/01/24 08:00 Sodium 3 gm/ Sodium Chloride IVPB Q8HR [facility] Protocol Melatonin 3 mg 01/31/24 21:00 01/31/24 20:13 Melatonin 3 Mg Tablet PO Not Given HS [facility] Morphine Sulfate 4 mg 01/31/24 19:41 Morphine Sulfate 4 Mg/Ml Syringe IV Q4HR PRN Severe Pain (Scale 7 to 10) Naloxone HCl 0.2 mg 01/31/24 19:41 Naloxone 0.4 Mg/Ml 1 Ml Vial IV Q2M PRN Opioid Reversal Intake and Output 01/31/24 02/01/24 02/01/24 22:59 06:59 14:59 Other: Weight 87.861 kg 01/31/24 16:42 02/01/24 02:20
--- NOTE | 2024-02-01 13:50 | P.NPCON ---
History of Present Illness - Reason for Consult acute renal failure - History of Present Illness patient is an 88-year-old male with history of dementia who resides in an assisted living. Patient was brought into the hospital with a history of fall. He was found wedged between the wall and his bed and was last seen about 18 hours prior. Patient was noted to have elevated CK at 2903. serum creatinine is at 1.27. Sodium is 148. Lactic acid was elevated at 2.9. no significant hypotension noted. patient is not able to provide detailed history. heart rate was 120s on initial admission. Status post IV fluid bolus currently maintained on IV fluids at 1 30 mL an hour. patient has a Rodriguez catheter. Review of Systems As per HPI. Past Medical History Past Medical History: Cancer, CVA/TIA, Dementia, GERD/Reflux, Hearing Disorder / Deafness, Hypertension, Prostate Disorder Additional Past Medical History / Comment(s): CVA with R eye vision changes, prostate cancer with prostatectomy, bilateral tinnitis, constipation, ETOH abuse, past cervical fracture with surgery/has limited ROM, falls. History of Any Multi-Drug Resistant Organisms: None Reported Past Surgical History: Orthopedic Surgery, Prostate Surgery Additional Past Surgical History / Comment(s): Prostatectomy, cervical surgery with plate/screws, colonoscopy, bilateral cataract removals/lens implants. Past Anesthesia/Blood Transfusion Reactions: No Reported Reaction Past Psychological History: No Psychological Hx Reported Smoking Status: Never smoker Past Alcohol Use History: Occasional Past Drug Use History: None Reported - Past Family History Father Family Medical History: Diabetes Mellitus Additional Family Medical History / Comment(s): Father may have had cancer but pt is not certain. Mother Family Medical History: Cancer Additional Family Medical History / Comment(s): Breast cancer Medications and Allergies Home Medications Medication Instructions Recorded Confirmed Type Cholecalciferol [Vitamin D3 (25 25 mcg PO DAILY 01/31/24 01/31/24 History Mcg = 1000 Iu)] Melatonin 3 mg PO HS 01/31/24 01/31/24 History Polyvinyl Alcohol/Povidone [Clear 1 drop BOTH EYES QID 01/31/24 01/31/24 History Eyes Natural Tears Drop] lisinopriL [Zestril] 10 mg PO DAILY 01/31/24 01/31/24 History Allergies Allergy/AdvReac Type Severity Reaction Status Date / Time No Known Allergies Allergy Verified 01/31/24 17:00 Physical Exam Vitals: Vital Signs Temp Pulse Resp BP Pulse Ox 02/01/24 11:11 98 18 104/56 98 02/01/24 10:07 87 16 129/60 96 02/01/24 08:20 102 H 16 115/75 95 02/01/24 05:44 98.8 F 109 H 18 119/93 97 02/01/24 02:12 110 H 16 110/62 96 02/01/24 01:06 99.0 F 112 H 16 111/64 94 L 01/31/24 23:56 98.6 F 94 18 110/68 97 01/31/24 22:45 98.6 F 01/31/24 22:44 110 H 16 131/74 95 01/31/24 21:29 98.2 F 118 H 18 137/67 95 01/31/24 19:25 97.7 F 106 H 16 118/79 95 01/31/24 16:40 96.8 F L 120 H 24 138/99 01/31/24 15:53 94.7 F L 120 H 20 124/86 96 Intake and Output 01/31/24 02/01/24 02/01/24 22:59 06:59 14:59 Other: Weight 87.861 kg patient is awake, comfortable, no acute distress. He is confused. Examination of the heart S1 and S2 Examination the lungs bilateral breath sounds are heard Abdomen is soft nontender Examination of lower extremities shows no evidence of edema. ulcer noted on the forehead. Results - Lab Results Most recent lab results Calcium 8.3 mg/dL (8.4-10.2) L 02/01/24 02:20 Phosphorus 5.0 mg/dL (2.5-4.5) H 02/01/24 02:20 Magnesium 2.6 mg/dL (1.6-2.3) H 02/01/24 02:20 02/01/24 07:32 02/01/24 02:20 Assessment and Plan Assessment: 1. Acute kidney injury, ATN. Nonoliguric. Currently with indwelling Rodriguez catheter.UA shows 1+ protein and small blood.check ultrasound of the kidneys. CK level at 2903 which is not high enough to directly cause rhabdo myolysis. 2. lactic acidosis. 3. Rhabdomyolysis status post fall. 4. underlying dementia. 5. history of prostate the cancer status post prostatectomy Plan: continue IV fluids. Repeat labs in a.m. continue antibiotics. Check ultrasound of the kidneys. Thank you for the consultation. We will continue to follow the patient with you during his hospitalization.
--- NOTE | 2024-02-01 14:27 | P.PN ---
Subjective Progress Note Date: 02/01/24 Hospital Course: 88-year-old male with history of dementia, hypertension currently resident of independent living at [facility] presented after he was found by staff in between his bed and the wall. Per EMS report, patient had been laying on his left side for possibly 18 hours. He was soiled with urine and feces. On arrival, patient was hypothermic, tachycardic, slightly tachypneic, on room air, blood pressure within normal limits. WBC 15.4, sodium 148, creatinine 1.02, lactate 2.9, CK 2900, troponin elevated to 0.125. CT brain did not show any acute process. Rest of the imaging were negative for any acute fractures. Nephrology, cardiology, vascular surgery consulted. Patient admitted for failure to thrive, acute rhabdomyolysis and elevated troponin. Subjective: Patient seen and examined at bedside. No acute events overnight. Still very confused. Denies any pain. Pertinent positives and negatives as discussed above, a complete review of systems was performed and all other systems are negative. Vitals Signs Reviewed. General: Nontoxic, no distress, appears at stated age Derm: Multiple unstageable ulcers throughout the body, left forehead, left shoulder, left lateral knee, right knee medially, left hand circumferential ulcer with sloughing skin, left breast mass with purulent drainage and erythema, bilateral groin with macular rash with central clearing and irregular edges Head: Left forehead unstageable ulcer Eyes: EOMI, no lid lag, anicteric sclera Mouth: No lip lesion, mucus membranes moist Cardiovascular: S1S2 tachycardic, reg, no murmur Lungs: CTA bilateral, no rhonchi, no rales, no accessory muscle use Abdominal: Soft, nontender to palpation, no guarding, no appreciable organomegaly Ext: Unable to move right upper extremity spontaneously Neuro: CN II-XI grossly intact Psych: Alert, not oriented Data Reviewed Today: Pertinent Labs: WBC 13.6, sodium 148, creatinine 1.27, lactate 1.8, AST 110, ALT 52, troponin 0.1-0 Imaging: No new imaging Assessment and Plan: Active: Acute rhabdomyolysis secondary to fall Dehydration Acute kidney injury -Nephrology note reviewed, ultrasound of kidneys ordered -Continue normal saline at 130 cc an hour -Repeat BMP and CK tomorrow Elevated troponin, unlikely to be ACS, likely secondary to rhabdomyolysis -Cardiology note reviewed, pending echocardiogram, hold lisinopril -Continue telemetry monitoring Multiple unstageable pressure ulcers, present on admission Suspected left breast mass with foul smelling drainage -Wound care consulted -Vascular surgery note reviewed, pending arterial ultrasound of bilateral lower extremities, no plan for surgical intervention at this time. -On IV Unasyn 3 g every 8 hours -Blood cultures pending -Pain control with oral Tylenol as needed, IV morphine as needed, monitor for sedation Failure to thrive Advanced dementia -PT/OT Annular skin lesions bilateral inner thighs, concerning for fungal infection -On clotrimazole topical twice daily Chronic: History of CVA/TIA History of prostate cancer status post prostatectomy History of hypertension DVT ppx: Subcu heparin Code status: Full code Anticipated discharge place: Pending clinical course Anticipated discharge time: Pending clinical course Objective - Vital Signs Vital signs: Vital Signs Temp 98.8 F 02/01/24 05:44 Pulse 97 02/01/24 13:49 Resp 18 02/01/24 13:49 BP 104/56 02/01/24 11:11 Pulse Ox 98 02/01/24 13:49 FiO2 Intake & Output 01/31/24 02/01/24 02/01/24 18:59 06:59 18:59 Weight 87.861 kg - Labs CBC & Chem 7: 02/01/24 07:32 02/01/24 02:20 Labs: Abnormal Lab Results - Last 24 Hours (Table) 01/31/24 01/31/24 01/31/24 Range/Units 16:42 16:42 16:42 WBC 15.4 H (3.8-10.6) k/uL MCHC (31.0-37.0) g/dL Neutrophils # 13.3 H (1.3-7.7) k/uL Lymphocytes # 0.9 L (1.0-4.8) k/uL Sodium 148 H (137-145) mmol/L Chloride 110 H (98-107) mmol/L BUN 77 H (9-20) mg/dL Creatinine (0.66-1.25) mg/dL Glucose 107 H (74-99) mg/dL Plasma Lactic Acid Wilmer (0.7-2.0) mmol/L Calcium (8.4-10.2) mg/dL Phosphorus (2.5-4.5) mg/dL Magnesium 2.6 H (1.6-2.3) mg/dL AST 111 H (17-59) U/L ALT 54 H (4-49) U/L Creatine Kinase 2903 H* (55-170) U/L Troponin I (0.000-0.034) ng/mL Total Protein (6.3-8.2) g/dL Albumin (3.5-5.0) g/dL Urine Protein 1+ H (Negative) Urine Ketones 1+ H (Negative) Urine Blood Small H (Negative) Urine Bacteria Rare H (None) /hpf Hyaline Casts 7 H (0-2) /lpf Urine Mucus Few H (None) /hpf 01/31/24 01/31/24 01/31/24 Range/Units 16:42 16:42 20:32 WBC (3.8-10.6) k/uL MCHC (31.0-37.0) g/dL Neutrophils # (1.3-7.7) k/uL Lymphocytes # (1.0-4.8) k/uL Sodium (137-145) mmol/L Chloride (98-107) mmol/L BUN (9-20) mg/dL Creatinine (0.66-1.25) mg/dL Glucose (74-99) mg/dL Plasma Lactic Acid Wilmer 3.0 H* (0.7-2.0) mmol/L Calcium (8.4-10.2) mg/dL Phosphorus (2.5-4.5) mg/dL Magnesium (1.6-2.3) mg/dL AST (17-59) U/L ALT (4-49) U/L Creatine Kinase (55-170) U/L Troponin I 0.130 H* 0.125 H* (0.000-0.034) ng/mL Total Protein (6.3-8.2) g/dL Albumin (3.5-5.0) g/dL Urine Protein (Negative) Urine Ketones (Negative) Urine Blood (Negative) Urine Bacteria (None) /hpf Hyaline Casts (0-2) /lpf Urine Mucus (None) /hpf 01/31/24 01/31/24 02/01/24 Range/Units 20:32 23:52 02:20 WBC (3.8-10.6) k/uL MCHC (31.0-37.0) g/dL Neutrophils # (1.3-7.7) k/uL Lymphocytes # (1.0-4.8) k/uL Sodium 148 H (137-145) mmol/L Chloride 115 H (98-107) mmol/L BUN 93 H (9-20) mg/dL Creatinine 1.27 H (0.66-1.25) mg/dL Glucose 120 H (74-99) mg/dL Plasma Lactic Acid Wilmer 3.2 H* 2.9 H* (0.7-2.0) mmol/L Calcium 8.3 L (8.4-10.2) mg/dL Phosphorus 5.0 H (2.5-4.5) mg/dL Magnesium 2.6 H (1.6-2.3) mg/dL AST 110 H (17-59) U/L ALT 52 H (4-49) U/L Creatine Kinase (55-170) U/L Troponin I (0.000-0.034) ng/mL Total Protein 5.9 L (6.3-8.2) g/dL Albumin 3.3 L (3.5-5.0) g/dL Urine Protein (Negative) Urine Ketones (Negative) Urine Blood (Negative) Urine Bacteria (None) /hpf Hyaline Casts (0-2) /lpf Urine Mucus (None) /hpf 02/01/24 02/01/24 Range/Units 02:20 07:32 WBC 13.6 H (3.8-10.6) k/uL MCHC 30.9 L (31.0-37.0) g/dL Neutrophils # 11.4 H (1.3-7.7) k/uL Lymphocytes # (1.0-4.8) k/uL Sodium (137-145) mmol/L Chloride (98-107) mmol/L BUN (9-20) mg/dL Creatinine (0.66-1.25) mg/dL Glucose (74-99) mg/dL Plasma Lactic Acid Wilmer (0.7-2.0) mmol/L Calcium (8.4-10.2) mg/dL Phosphorus (2.5-4.5) mg/dL Magnesium (1.6-2.3) mg/dL AST (17-59) U/L ALT (4-49) U/L Creatine Kinase (55-170) U/L Troponin I 0.120 H* (0.000-0.034) ng/mL Total Protein (6.3-8.2) g/dL Albumin (3.5-5.0) g/dL Urine Protein (Negative) Urine Ketones (Negative) Urine Blood (Negative) Urine Bacteria (None) /hpf Hyaline Casts (0-2) /lpf Urine Mucus (None) /hpf
--- NOTE | 2024-02-01 19:39 | US ---
EXAMINATION TYPE: US kidneys/renal and bladder DATE OF EXAM: 02/01/2024 COMPARISON: NONE CLINICAL INDICATION: Male, 88 years old with history of josiah; JOSIAH, patient had recent fall EXAM MEASUREMENTS: Right Kidney: 8.3 x 3.8 x 5.8 cm Left Kidney: not visualized Right Kidney: limited visibility Left Kidney: not seen, patient would not move injured arm or roll to obtain images Bladder: not seen There is no evidence for hydronephrosis at this point in time. No nephrolithiasis is seen. No christina s are identified. The urinary bladder is anechoic. Bilateral ureteral jets are seen. IMPRESSION: 1. Right renal ultrasound appears unremarkable. 2. Left renal ultrasound could not be performed due to patient condition
[2024-02-02 09:41] LABS: Basophils % (A) 0 %; Eosinophils % (A) 0 %; Lymphocytes # (A) 1.1 k/uL (1.0-4.8); Lymphocytes % (A) 10 %; MCH 31.5 pg (25.0-35.0); MCHC 31.2 g/dL (31.0-37.0); Mean Platelet Volume 9.1; Monocytes # (A) 0.7 k/uL (0-1.0); Monocytes % (A) 6 %; Neutrophils # (A) 9.8 k/uL (1.3-7.7); Neutrophils % (A) 83 %; Platelet Count 247 k/uL (150-450); RBC 4.46 m/uL (4.30-5.90); WBC 11.8 k/uL (3.8-10.6)
[2024-02-02 09:57] LABS: ALT 63 U/L (4-49); AST 153 U/L (17-59); African American GFR (CKD) 72 (>60 ml/min/1.73 sqM); Albumin 2.9 g/dL (3.5-5.0); Alkaline Phosphatase 94 U/L (38-126); Anion Gap 5 mmol/L; Blood Urea Nitrogen 72 mg/dL (9-20); Calcium 8.3 mg/dL (8.4-10.2); Carbon Dioxide 26 mmol/L (22-30); Chloride 119 mmol/L (98-107); Glucose 121 mg/dL (74-99); Magnesium 2.7 mg/dL (1.6-2.3); Non-African American GFR(CKD) 62 (>60 ml/min/1.73 sqM); Sodium 150 mmol/L (137-145); Total Bilirubin 0.5 mg/dL (0.2-1.3); Total Protein 5.7 g/dL (6.3-8.2)
--- NOTE | 2024-02-02 12:26 | P.PN ---
Subjective Progress Note Date: 02/02/24 Principal diagnosis: Pressure ulcers Patient is seen and examined today as a follow-up. Patient is currently getting washed up in bed. He is completely unclothed with just a towel over him, with noted pressure ulcers to the shoulder and upper abdomen. Patient is currently n.p.o. as he was having some difficulty with swallowing. Patient's been afebrile. He appears in no distress, he does appear lethargic. He is without any complaints at this time. Yesterday patient underwent lower extremity arterial duplex, report is currently pending still. Objective - Vital Signs Vital signs: Vital Signs Temp 97.6 F 02/02/24 03:41 Pulse 103 H 02/02/24 03:41 Resp 18 02/02/24 03:41 BP 129/81 02/02/24 03:41 Pulse Ox 96 02/02/24 03:41 FiO2 Intake & Output 02/01/24 02/02/24 02/02/24 18:59 06:59 18:59 Intake Total 1000 240 Output Total 400 Balance 600 240 Weight 87.861 kg Intake: Oral 1000 240 Output: Urine 400 Other: Voiding Method Bedpan Urinal - Exam General appearance: The patient is alert, oriented, appears in no acute distress. HET: Head is normocephalic and atraumatic. Neck: Supple. Abdomen: Soft, nondistended. Extremities: Bilateral lower extremities warm to the touch, palpable femoral and PT pulses. Patient has multiple ulcers to his bilateral lower extremities around the knee and nina with eschar. Skin: Patient with multiple pressure wounds. Wound to the left upper abdomen. Ulcer to the left shoulder, arm and hand. Left lower extremity. Multiple areas with eschar. Neurological: Patient is awake and alert, not oriented. - Labs CBC & Chem 7: 02/02/24 08:49 02/02/24 08:49 Assessment and Plan Assessment: 1. Fall on ground for undetermined amount of time 2. Multiple pressure ulcers, primarily to left side of body 3. Dementia Plan: 1. Arterial ultrasound of lower extremities ordered 2. Consult to wound clinic for local wound care 3. No plans at this time for surgical intervention Thank you for this consultation, we we will sign off at this time. The impression and plan of care has been dictated as directed. Dr.Foley Sood performed a history and examination of this patient, discussed the same with the dictator. I agree with the dictator's note ,documented as a scribe. Any additional findings or plans will be noted.
--- NOTE | 2024-02-02 12:28 | P.CONS ---
History of Present Illness - Reason for Consult Consult date: 02/02/24 wound care - History of Present Illness This is a 88-year-old male with a past medical history including dementia, CVA/TIA, hearing disorder, hypertension, history of alcohol abuse, prostate cancer status post prostatectomy and frequent falls who was brought in by EMS after being found on the floor for unsure amount of time. It was reported that patient was found on the floor wedged between the wall and his bed and last time seen well prior to finding him was at least 18 hours. Patient currently is poor historian most of the HPI is obtained from chart. Wound care was consulted for multiple pressure ulcers. Patient is not able to provide any information on how long he has had these wounds, or if they were just from the fall. Patient does have a laceration to left side of his head from the fall. Patient has multiple pressure ulcerations noted to the forehead, left shoulder, left anterior chest, left knee, right medial knee and left arm. Review of systems: Unable to obtain due to patient's mental status Review Of Systems: Constitutional: No fever, no chills, no night sweats. No weight change. No weakness, fatigue or lethargy. No daytime sleepiness. Integumentary:reports wounds, no lesions. No rash or pruritus. No unusual bruising. No change in hair or nails. Assessment: 1. Unstageable pressure ulcer to other site 2. Unstageable pressure ulcer to the left knee 3. Unstageable pressure ulcer right knee 4. Unstageable pressure ulcer left shoulder Plan: 1. Apply honey gel/honey alginate to ulcerations. If utilizing honey alginate apply saline moist gauze dry gauze rolled gauze secure with paper tape. If utilizing honey gel apply dry gauze and secure with tape. Change Tuesday. Thank you for the consultation any questions please contact the wound care center DNP note has been reviewed and discussed with Dr. Smith and the impression and plan of care has been directed as dictated. Past Medical History Past Medical History: Cancer, CVA/TIA, Dementia, GERD/Reflux, Hearing Disorder / Deafness, Hypertension, Prostate Disorder Additional Past Medical History / Comment(s): CVA with R eye vision changes, prostate cancer with prostatectomy, bilateral tinnitis, constipation, ETOH abuse, past cervical fracture with surgery/has limited ROM, falls. History of Any Multi-Drug Resistant Organisms: None Reported Past Surgical History: Orthopedic Surgery, Prostate Surgery Additional Past Surgical History / Comment(s): Prostatectomy, cervical surgery with plate/screws, colonoscopy, bilateral cataract removals/lens implants. Past Anesthesia/Blood Transfusion Reactions: No Reported Reaction Smoking Status: Former smoker, Never smoker - Past Family History Father Family Medical History: Diabetes Mellitus Additional Family Medical History / Comment(s): Father may have had cancer but pt is not certain. Mother Family Medical History: Cancer Additional Family Medical History / Comment(s): Breast cancer Medications and Allergies Home Medications Medication Instructions Recorded Confirmed Type Cholecalciferol [Vitamin D3 (25 25 mcg PO DAILY 01/31/24 01/31/24 History Mcg = 1000 Iu)] Melatonin 3 mg PO HS 01/31/24 01/31/24 History Polyvinyl Alcohol/Povidone [Clear 1 drop BOTH EYES QID 01/31/24 01/31/24 History Eyes Natural Tears Drop] lisinopriL [Zestril] 10 mg PO DAILY 01/31/24 01/31/24 History Allergies Allergy/AdvReac Type Severity Reaction Status Date / Time No Known Allergies Allergy Verified 01/31/24 17:00 Physical Exam Vitals: Vital Signs Temp Pulse Pulse Resp BP BP Pulse Ox 02/02/24 11:41 98.1 F 93 17 121/76 96 02/02/24 08:00 97.7 F 62 17 100/59 99 02/02/24 03:41 97.6 F 103 H 18 129/81 96 02/02/24 02:00 18 02/02/24 00:00 99 18 128/72 98 02/01/24 20:00 97.9 F 102 H 18 146/84 94 L 02/01/24 18:52 97.4 F L 104 H 20 124/65 99 02/01/24 18:19 98.2 F 102 H 18 116/62 95 02/01/24 16:00 98 16 121/69 95 02/01/24 13:49 97 18 98 Intake and Output 02/01/24 02/02/24 02/02/24 22:59 06:59 14:59 Intake Total 1000 240 Output Total 400 400 Balance 1000 -400 -160 Intake: Oral 1000 240 Output: Urine 400 400 Other: Voiding Method Bedpan Bedpan Bedpan Urinal Urinal Urinal Weight 87.861 kg Results CBC & Chem 7: 02/02/24 08:49 02/02/24 08:49 Labs: Abnormal Lab Results - Last 24 Hours (Table) 02/02/24 02/02/24 Range/Units 08:49 08:49 WBC 11.8 H (3.8-10.6) k/uL MCV 101.0 H (80.0-100.0) fL Neutrophils # 9.8 H (1.3-7.7) k/uL Sodium 150 H (137-145) mmol/L Chloride 119 H (98-107) mmol/L BUN 72 H (9-20) mg/dL Glucose 121 H (74-99) mg/dL Calcium 8.3 L (8.4-10.2) mg/dL Magnesium 2.7 H (1.6-2.3) mg/dL AST 153 H (17-59) U/L ALT 63 H (4-49) U/L Total Protein 5.7 L (6.3-8.2) g/dL Albumin 2.9 L (3.5-5.0) g/dL Assessment and Plan (1) Unstageable pressure ulcer of head Current Visit: Yes Status: Acute Code(s): L89.810 - PRESSURE ULCER OF HEAD, UNSTAGEABLE SNOMED Code(s): 95281358667663184 (2) Unstageable decubitus ulcer Current Visit: Yes Status: Acute Code(s): L89.95 - PRESSURE ULCER OF UNSPECIFIED SITE, UNSTAGEABLE SNOMED Code(s): 6838095191 (3) Unstageable pressure injury of left lower leg Current Visit: Yes Status: Acute Code(s): L89.890 - PRESSURE ULCER OF OTHER SITE, UNSTAGEABLE SNOMED Code(s): 60709017171951102 (4) Unstageable pressure injury of right lower leg Current Visit: Yes Status: Acute Code(s): L89.890 - PRESSURE ULCER OF OTHER SITE, UNSTAGEABLE SNOMED Code(s): 33560859941188550
--- NOTE | 2024-02-02 12:31 | US ---
EXAMINATION TYPE: US arterial LE multi level DATE OF EXAM: 02/01/2024 4:31 PM CLINICAL INDICATION: Male, 88 years old with history of non palpable DP pulses; Findings: Doppler Waveforms: Right: Multiphasic Left: Multiphasic Right Brachial Pressure: 94 cm/s Left Brachial Pressure: Could not be obtained. Noncompressible vasculature bilateral lower extremity infrapopliteal vessels. Results nondiagnostic e xam for ELVI or TBI. Ankle-Brachial Indices: Right: Nondiagnostic Left: Nondiagnostic (Vessel hardening > 1.4; Normal 0.9 - 1.4, Moderate 0.7 - 0.9, Severe 0.5-0.7) IMPRESSION: Exam is nondiagnostic.
[2024-02-02] MEDS: ACETAMINOPHEN TAB 325 MG TAB PO PRN (12:41)
[2024-02-02] MEDS: DEXTROSE 5% IN WATER 1,000 ML IV SCH (13:41)
--- NOTE | 2024-02-02 13:59 | USB ---
Reason for Exam: Clinical finding. Technique: Method: Whole Breast Handheld. Findings: The whole breast of the left breast, the axilla of the left breast and the retroareolar of the left breast were scanned. A complete US of all four quadrants of the breast common axilla, and retro-areolar region were reviewed. Inferior to the nipple, the manager studio describes a wound with tissue loss. There are edematous thickened fat lobules here but no suspicious mass. Mild edematous change noted within the axilla as well but no lymphadenopathy. Overall Assessment: Incomplete: need additional imaging evaluation, BI-RAD 0 Management: Diagnostic Mammogram of both breasts. For further assessment on an outpatient basis when the patient is able. No evident mass by ultrasound. The tissues are edematous inferior to the left breast and may correspond to reactive changes to the patient's reported wound versus cellulitis. If there is a strong clinical suspicion for underlying breast cancer, consider surgical evaluation. Results were given to the patient verbally at the time of exam. Electronically signed and approved by: Chika Aldridge M.D. Radiologist
--- NOTE | 2024-02-02 14:12 | P.GSCN ---
History of Present Illness Consult date: 02/02/24 History of present illness: CHIEF COMPLAINT: Fall HISTORY OF PRESENT ILLNESS: This is a 88 male who presented from [facility] after being found on the ground for 18 hours per nursing staff. He was wedged between the floor and his bed. He was laying on the left side of his body patient admitted to the hospital with acute rhabdomyolysis secondary to fall. Patient has multiple areas of pressure ulcers on the left side of his body. He has been evaluated by vascular surgery and wound care service. General surgery consulted in regards to left breast wound. Patient has tenderness of the left breast with palpation. The lower part of the breast is firm. There is skin breakdown. Patient denies having any prior lumps or skin irritation to the left breast. Denies any family history of breast cancer. PAST MEDICAL HISTORY: Prostate cancer with prostatectomy, CVA, dementia, hypertension, alcohol abuse PAST SURGICAL HISTORY: See below MEDICATIONS: See below ALLERGIES: See below SOCIAL HISTORY: No illicit drug use. REVIEW OF SYSTEMS: CONSTITUTIONAL: Denies fever or chills. HEENT: Denies blurred vision, vision changes, or eye pain. Denies hemoptysis CARDIOVASCULAR: Denies chest pain or pressure. RESPIRATORY: No shortness of breath. GASTROINTESTINAL: See HPI for pertinent findings HEMATOLOGIC: Denies bleeding disorders. GENITOURINARY: Denies any blood in urine or increased urinary frequency. SKIN: Denies pruitis. Denies rash. PHYSICAL EXAM: VITAL SIGNS: Reviewed GENERAL: no acute distress. CHEST: Left breast along the lower aspect is firm and hard. Breast is tender with palpation. abrasion noted on the left nipple. Skin abrasion along the lower left breast. large skin abrasion below the breast along the left rib cage. Minimal serous drainage noted on bandage. No foul odor ABDOMEN: Soft. Nondistended. Nontender NEUROLOGIC: Alert and oriented. Cranial nerves II through XII grossly intact. Skin: Patient does have dark skin pressure ulcers on the left side of his scalp left shoulder and left leg LABORATORY DATA: WBC 11.8 Hgb 14.0 platelets 247 Sodium is 150 potassium 4.0 creatinine 1.07 CPK 2930 Lactic acid 3.0 down to 1.8 IMAGING: ASSESSMENT: 1. Acute rhabdomyolysis due to fall 2. Left breast wound secondary to fall 3. Multiple pressure ulcers left side of body PLAN: -Further recommendations forthcoming per surgeon -Continue local wound care. Patient evaluated by wound care service -Continue supportive care -Follow-up on left breast ultrasound results Physician Lead Care Manager note has been reviewed by physician. Signing provider agrees with the documented findings, assessment, and plan of care. I have personally seen and examined the patient, reviewed the CORN POPPER /PAs history, exam and MDM and agree with the assessment and plan as written. Based on total visit time, I have performed more than 50% of the visit. As above: Patient with multiple pressure ulcers. No drainable abscess or areas requiring debridement currently. Continue local wound care. Will follow. Past Medical History Past Medical History: Cancer, CVA/TIA, Dementia, GERD/Reflux, Hearing Disorder / Deafness, Hypertension, Prostate Disorder Additional Past Medical History / Comment(s): CVA with R eye vision changes, prostate cancer with prostatectomy, bilateral tinnitis, constipation, ETOH abuse, past cervical fracture with surgery/has limited ROM, falls. History of Any Multi-Drug Resistant Organisms: None Reported Past Surgical History: Orthopedic Surgery, Prostate Surgery Additional Past Surgical History / Comment(s): Prostatectomy, cervical surgery with plate/screws, colonoscopy, bilateral cataract removals/lens implants. Past Anesthesia/Blood Transfusion Reactions: No Reported Reaction Smoking Status: Former smoker, Never smoker - Past Family History Father Family Medical History: Diabetes Mellitus Additional Family Medical History / Comment(s): Father may have had cancer but pt is not certain. Mother Family Medical History: Cancer Additional Family Medical History / Comment(s): Breast cancer Medications and Allergies Home Medications Medication Instructions Recorded Confirmed Type Cholecalciferol [Vitamin D3 (25 25 mcg PO DAILY 01/31/24 01/31/24 History Mcg = 1000 Iu)] Melatonin 3 mg PO HS 01/31/24 01/31/24 History Polyvinyl Alcohol/Povidone [Clear 1 drop BOTH EYES QID 01/31/24 01/31/24 History Eyes Natural Tears Drop] lisinopriL [Zestril] 10 mg PO DAILY 01/31/24 01/31/24 History Allergies Allergy/AdvReac Type Severity Reaction Status Date / Time No Known Allergies Allergy Verified 01/31/24 17:00 Surgical - Exam Vital Signs Temp Pulse Resp BP Pulse Ox 94.7 F L 120 H 20 124/86 96 01/31/24 15:53 01/31/24 15:53 01/31/24 15:53 01/31/24 15:53 01/31/24 15:53 Results - Labs 02/02/24 08:49 02/02/24 08:49 Abnormal Lab Results - Last 24 Hours (Table) 02/02/24 02/02/24 Range/Units 08:49 08:49 WBC 11.8 H (3.8-10.6) k/uL MCV 101.0 H (80.0-100.0) fL Neutrophils # 9.8 H (1.3-7.7) k/uL Sodium 150 H (137-145) mmol/L Chloride 119 H (98-107) mmol/L BUN 72 H (9-20) mg/dL Glucose 121 H (74-99) mg/dL Calcium 8.3 L (8.4-10.2) mg/dL Magnesium 2.7 H (1.6-2.3) mg/dL AST 153 H (17-59) U/L ALT 63 H (4-49) U/L Total Protein 5.7 L (6.3-8.2) g/dL Albumin 2.9 L (3.5-5.0) g/dL Microbiology - Last 24 Hours (Table) 02/01/24 07:32 Blood Culture - Preliminary Blood Diabetes panel 02/02/24 Range/Units 08:49 Sodium 150 H (137-145) mmol/L Potassium 4.0 (3.5-5.1) mmol/L Chloride 119 H (98-107) mmol/L Carbon Dioxide 26 (22-30) mmol/L BUN 72 H (9-20) mg/dL Creatinine 1.07 (0.66-1.25) mg/dL Glucose 121 H (74-99) mg/dL Calcium 8.3 L (8.4-10.2) mg/dL AST 153 H (17-59) U/L ALT 63 H (4-49) U/L Alkaline Phosphatase 94 (38-126) U/L Total Protein 5.7 L (6.3-8.2) g/dL Albumin 2.9 L (3.5-5.0) g/dL Calcium panel 02/02/24 Range/Units 08:49 Calcium 8.3 L (8.4-10.2) mg/dL Albumin 2.9 L (3.5-5.0) g/dL Pituitary panel 02/02/24 Range/Units 08:49 Sodium 150 H (137-145) mmol/L Potassium 4.0 (3.5-5.1) mmol/L Chloride 119 H (98-107) mmol/L Carbon Dioxide 26 (22-30) mmol/L BUN 72 H (9-20) mg/dL Creatinine 1.07 (0.66-1.25) mg/dL Glucose 121 H (74-99) mg/dL Calcium 8.3 L (8.4-10.2) mg/dL Adrenal panel 02/02/24 Range/Units 08:49 Sodium 150 H (137-145) mmol/L Potassium 4.0 (3.5-5.1) mmol/L Chloride 119 H (98-107) mmol/L Carbon Dioxide 26 (22-30) mmol/L BUN 72 H (9-20) mg/dL Creatinine 1.07 (0.66-1.25) mg/dL Glucose 121 H (74-99) mg/dL Calcium 8.3 L (8.4-10.2) mg/dL Total Bilirubin 0.5 (0.2-1.3) mg/dL AST 153 H (17-59) U/L ALT 63 H (4-49) U/L Alkaline Phosphatase 94 (38-126) U/L Total Protein 5.7 L (6.3-8.2) g/dL Albumin 2.9 L (3.5-5.0) g/dL
[2024-02-02] MEDS: LACTATED RINGERS 1,000 ML IV SCH (14:16)
--- NOTE | 2024-02-02 14:45 | P.PN ---
Subjective Progress Note Date: 02/02/24 Hospital Course: 88-year-old male with history of dementia, hypertension currently resident of independent living at [facility] presented after he was found by staff in between his bed and the wall. Per EMS report, patient had been laying on his left side for possibly 18 hours. He was soiled with urine and feces. On arrival, patient was hypothermic, tachycardic, slightly tachypneic, on room air, blood pressure within normal limits. WBC 15.4, sodium 148, creatinine 1.02, lactate 2.9, CK 2900, troponin elevated to 0.125. CT brain did not show any acute process. Rest of the imaging were negative for any acute fractures. Nephrology, cardiology, vascular surgery consulted. Patient admitted for failure to thrive, acute rhabdomyolysis and elevated troponin. Subjective: Patient seen and examined he states that he had a horrible night. Patient could not tell me why. Patient also requesting for milk. Patient was AOx3 and was answering questions appropriately Physical exam Vitals Signs Reviewed. 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 Will resume lactated Ringer's at 130 cc an hour -Nephrology on board -Trend BMP Hyponatremia and hypochloremia Likely iatrogenic from normal saline fluids See above for management Sodium this morning was 150 and chloride was 119 Trend BMP Elevated troponin, unlikely to be ACS, likely secondary to rhabdomyolysis -Cardiology on board. Echocardiogram is still pending Multiple unstageable pressure ulcers, present on admission Left breast wound likely due to trauma -Reviewed wound care consult and appreciate recommendations -Vascular surgery note reviewed, pending arterial ultrasound of bilateral lower extremities, no plan for surgical intervention at this time. Reviewed arterial ultrasound of the lower extremity that was nondiagnostic -On IV Unasyn 3 g every 8 hours Blood cultures are negative to date -I reviewed ultrasound of the left breast that showed no mass or abscess -Surgical consult -Pain control with oral Tylenol as needed, -Will discontinue IV morphine as this is an elderly gentleman so we will avoid opioids Failure to thrive Advanced dementia -PT/OT-> recommending rehab -Patient this morning was AOx3 Annular skin lesions bilateral inner thighs, concerning for fungal infection -On clotrimazole topical twice daily -Will also start nystatin Chronic: History of CVA/TIA History of prostate cancer status post prostatectomy History of hypertension DVT ppx: Subcu heparin Code status: Full code Anticipate patient will be stable for discharge to [facility] facility tomorrow if there is no surgical intervention planned. Objective - Vital Signs Vital signs: Vital Signs Temp 98.1 F 02/02/24 11:41 Pulse 93 02/02/24 11:41 Resp 17 02/02/24 11:41 BP 121/76 02/02/24 11:41 Pulse Ox 96 02/02/24 11:41 FiO2 Intake & Output 02/01/24 02/02/24 02/02/24 18:59 06:59 18:59 Intake Total 1000 480 Output Total 400 400 Balance 600 80 Weight 87.861 kg Intake: Oral 1000 480 Output: Urine 400 400 Other: Voiding Method Bedpan Bedpan Urinal Urinal - Labs CBC & Chem 7: 02/02/24 08:49 02/02/24 08:49 Labs: Abnormal Lab Results - Last 24 Hours (Table) 02/02/24 02/02/24 Range/Units 08:49 08:49 WBC 11.8 H (3.8-10.6) k/uL MCV 101.0 H (80.0-100.0) fL Neutrophils # 9.8 H (1.3-7.7) k/uL Sodium 150 H (137-145) mmol/L Chloride 119 H (98-107) mmol/L BUN 72 H (9-20) mg/dL Glucose 121 H (74-99) mg/dL Calcium 8.3 L (8.4-10.2) mg/dL Magnesium 2.7 H (1.6-2.3) mg/dL AST 153 H (17-59) U/L ALT 63 H (4-49) U/L Total Protein 5.7 L (6.3-8.2) g/dL Albumin 2.9 L (3.5-5.0) g/dL Microbiology - Last 24 Hours (Table) 02/01/24 07:32 Blood Culture - Preliminary Blood
[2024-02-02] MEDS: ZINC OXIDE PASTE (Z-GUARD) 1 APPLIC TOPICAL SCH (16:24)
[2024-02-02] MEDS: NYSTATIN 100,000 UNIT/GM POWD 15 GM TOPICAL SCH (16:24)
[2024-02-02] MEDS ORDERED: IBUPROFEN 200 MG TAB PO PRN (18:11)
[2024-02-02] MEDS ORDERED: LIDOCAINE 4% PATCH TOPICAL SCH (18:30)
--- NOTE | 2024-02-02 19:15 | P.PN ---
Subjective Patient was admitted for rhabdomyolysis with elevated CPKs and minor troponins with a flat trend Patient has had difficulty swallowing He is undergoing a swallow study today From a cardiac standpoint 2D echo has been ordered No further recommendations at this time continue medical management for his falls ulcers injuries On examination blood pressure normal heart sounds are normal Impression Rhabdomyolysis Hypertension Borderline elevations in troponin with a flat trend do not represent an acute myocardial infarction Will sign off at this point This patient did not have an acute myocardial infarction The minor elevation in troponin is not consistent with a type II ID The ratio of the CPK to troponin is consistent with rhabdomyolysis Objective - Vital Signs Vital signs: Vital Signs Temp 98.2 F 02/02/24 16:00 Pulse 88 02/02/24 16:00 Resp 17 02/02/24 16:00 BP 116/71 02/02/24 16:00 Pulse Ox 97 02/02/24 16:00 FiO2 Intake & Output 02/02/24 02/02/24 02/03/24 06:59 18:59 06:59 Intake Total 1000 720 Output Total 400 775 Balance 600 -55 Intake: Oral 1000 720 Output: Urine 400 775 Other: Voiding Method Bedpan Bedpan Urinal Urinal - Labs CBC & Chem 7: 02/02/24 08:49 02/02/24 08:49 Labs: Abnormal Lab Results - Last 24 Hours (Table) 02/02/24 02/02/24 Range/Units 08:49 08:49 WBC 11.8 H (3.8-10.6) k/uL MCV 101.0 H (80.0-100.0) fL Neutrophils # 9.8 H (1.3-7.7) k/uL Sodium 150 H (137-145) mmol/L Chloride 119 H (98-107) mmol/L BUN 72 H (9-20) mg/dL Glucose 121 H (74-99) mg/dL Calcium 8.3 L (8.4-10.2) mg/dL Magnesium 2.7 H (1.6-2.3) mg/dL AST 153 H (17-59) U/L ALT 63 H (4-49) U/L Total Protein 5.7 L (6.3-8.2) g/dL Albumin 2.9 L (3.5-5.0) g/dL Microbiology - Last 24 Hours (Table) 02/01/24 07:32 Blood Culture - Preliminary Blood
--- NOTE | 2024-02-02 19:38 | P.PN ---
Subjective Patient is seen for follow-up for acute kidney injury and mild rhabdomyolysis. Good urine output. Serum creatinine at 1.0 today. Sodium has increased to 150. Currently on Ringer lactate at 130 cc an hour. Objective - Vital Signs Vital signs: Vital Signs Temp 98.2 F 02/02/24 16:00 Pulse 88 02/02/24 16:00 Resp 17 02/02/24 16:00 BP 116/71 02/02/24 16:00 Pulse Ox 97 02/02/24 16:00 FiO2 Intake & Output 02/02/24 02/02/24 02/03/24 06:59 18:59 06:59 Intake Total 1000 720 Output Total 400 775 Balance 600 -55 Intake: Oral 1000 720 Output: Urine 400 775 Other: Voiding Method Bedpan Bedpan Urinal Urinal - Exam patient is awake, comfortable, no acute distress. He is confused. Examination of the heart S1 and S2 Examination the lungs bilateral breath sounds are heard Abdomen is soft nontender Examination of lower extremities shows no evidence of edema. ulcer noted on the forehead. - Labs CBC & Chem 7: 02/02/24 08:49 02/02/24 08:49 Labs: Abnormal Lab Results - Last 24 Hours (Table) 02/02/24 02/02/24 Range/Units 08:49 08:49 WBC 11.8 H (3.8-10.6) k/uL MCV 101.0 H (80.0-100.0) fL Neutrophils # 9.8 H (1.3-7.7) k/uL Sodium 150 H (137-145) mmol/L Chloride 119 H (98-107) mmol/L BUN 72 H (9-20) mg/dL Glucose 121 H (74-99) mg/dL Calcium 8.3 L (8.4-10.2) mg/dL Magnesium 2.7 H (1.6-2.3) mg/dL AST 153 H (17-59) U/L ALT 63 H (4-49) U/L Total Protein 5.7 L (6.3-8.2) g/dL Albumin 2.9 L (3.5-5.0) g/dL Microbiology - Last 24 Hours (Table) 02/01/24 07:32 Blood Culture - Preliminary Blood Assessment and Plan Assessment: 1. Acute kidney injury, ATN. Nonoliguric. Currently with indwelling Rodriguez catheter.UA shows 1+ protein and small blood. No obstruction noted on ultrasound. Left kidney not visualized due to patient's position. CK level at 2903 which is not high enough to directly cause rhabdo myolysis. 2. lactic acidosis. 3. Rhabdomyolysis status post fall. 4. underlying dementia. 5. history of prostate the cancer status post prostatectomy 6. Hypernatremia associated with free water deficit Plan: Change IV fluids to D5W. Repeat labs in a.m. DC Ringer lactate Encourage increased oral intake
[2024-02-03 09:58] LABS: Basophils % (A) 0 %; Eosinophils # (A) 0.2 k/uL (0-0.7); Eosinophils % (A) 2 %; HCT 38.4 % (39.0-53.0); HGB 11.8 gm/dL (13.0-17.5); Lymphocytes % (A) 12 %; MCH 30.7 pg (25.0-35.0); MCHC 30.6 g/dL (31.0-37.0); MCV 100.3 fL (80.0-100.0); Mean Platelet Volume 9.3; Monocytes # (A) 0.5 k/uL (0-1.0); Monocytes % (A) 7 %; Neutrophils # (A) 6.3 k/uL (1.3-7.7); Neutrophils % (A) 78 %; Platelet Count 179 k/uL (150-450); RBC 3.83 m/uL (4.30-5.90); RDW 13.2 % (11.5-15.5); WBC 8.1 k/uL (3.8-10.6)
[2024-02-03 10:07] LABS: African American GFR (CKD) >90 (>60 ml/min/1.73 sqM); Anion Gap 1 mmol/L; Blood Urea Nitrogen 45 mg/dL (9-20); Carbon Dioxide 29 mmol/L (22-30); Chloride 118 mmol/L (98-107); Glucose 121 mg/dL (74-99); Magnesium 2.5 mg/dL (1.6-2.3); Non-African American GFR(CKD) 79 (>60 ml/min/1.73 sqM); Potassium 3.8 mmol/L (3.5-5.1); Sodium 148 mmol/L (137-145)
--- NOTE | 2024-02-03 11:50 | CA ---
Transthoracic Echo Report Name: Isac Silva Age: 88 Gender: M : 1935 Exam Date: 02/01/2024 15:26 Exam Location: [place] [facility] Ht (in): 66 Wt (lb): 193 Ordering Physician: Aubrie Linares Attending/Referring Phys: [id number], Milagros Flight Service Agent Christine Bass RDCS Procedure CPT: Indications: LV function, abnormal trops Cardiac Hx: Echo attempted Technical Quality: Very technically difficult study Contrast 1: Total Dose (mL): Contrast 2: Total Dose (mL): MEASUREMENTS (Male / Female) Normal Values FINDINGS Left Ventricle Not visualize Right Ventricle Not visualize Right Atrium Not visualize Left Atrium Not visualize Mitral Valve Not visualize Aortic Valve Not visualize Tricuspid Valve Not visualize Pulmonic Valve Not visualize Pericardium Not visualize Aorta Not visulize CONCLUSIONS Limited views cannot comment upon the echo may need to be restudied Previewed by: Dr. James Goode MD (Electronically Signed) Final Date: 03 Feb 2024 11:49
--- NOTE | 2024-02-03 12:10 | P.DS ---
Providers Date of admission: 01/31/24 19:43 Attending physician: Diaz Mc MD Consults: 01/31/24 19:41 Consult Physician Routine Consulting Provider: Mary Carmen Hendricks Consult Reason/Comments: rubio, rhabdomyolysis Do you want consulting provider notified?: Yes 01/31/24 19:43 Consult Physician Urgent Consulting Provider: Chris Joseph Consult Reason/Comments: cardiac eval Do you want consulting provider notified?: Yes 02/02/24 12:32 Consult Physician Routine Consulting Provider: Johnathan Luevano Consult Reason/Comments: left breast wound Do you want consulting provider notified?: Yes Primary care physician: [facility] Hospital Course: Discharge Diagnosis: Acute rhabdomyolysis secondary to fall Dehydration Acute kidney injury Hypernatremia and hyperchloremia likely iatrogenic from normal saline fluids Elevated troponin likely due to rhabdomyolysis Multiple unstageable pressure ulcers Left breast wound likely due to trauma Failure to thrive Yeast infection in the bilateral inner thighs History of CVA hypertension Hospital Course: 88-year-old male with history of dementia, hypertension currently resident of independent living at [facility] presented after he was found by staff in between his bed and the wall. Per EMS report, patient had been laying on his left side for possibly 18 hours. He was soiled with urine and feces. On arrival, patient was hypothermic, tachycardic, slightly tachypneic, on room air, blood pressure within normal limits. WBC 15.4, sodium 148, creatinine 1.02, lactate 2.9, CK 2900, troponin elevated to 0.125. CT brain did not show any acute process. Rest of the imaging were negative for any acute fractures. Nephrology, cardiology, vascular surgery consulted. Patient admitted for failure to thrive, acute rhabdomyolysis and elevated troponin. Patient was given IV fluids and his renal function normalized Patient was seen by vascular surgery who said no surgical interventions at this time. Patient had lower extremity Dopplers that were nondiagnostic. Patient seen by cardiology as well. Per cardiology the elevated troponin likely due to rhabdomyolysis. Unfortunately echocardiogram was limited and not helpful. Patient was also seen by wound care and was treated with IV antibiotics for his pressure wounds. Patient also had an ultrasound of his left breast that was negative for any abscess. Patient seen by general surgery who recommended wound care. Patient deemed stable for discharge. He will be discharged to [facility] facility for wound care and physical therapy. Physical exam Patient seen and examined at bedside on 02/03/2024.[] Vital signs reviewed and stable. 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 Patient Condition at Discharge: Serious Plan - Discharge Summary Discharge Rx Participant: No New Discharge Prescriptions: New Nystatin 100,000 Unit/gm Powd [Mycostatin Powder] 1 applic TOPICAL TID each Acetaminophen Tab [Tylenol] 650 mg PO Q6HR PRN tab PRN Reason: Mild Pain Or Fever > 100.5 Amoxic-Pot Clav 875-125Mg [Augmentin 875-125] 1 tab PO BID 5 Days #10 tab Continue Melatonin 3 mg PO HS Cholecalciferol [Vitamin D3 (25 Mcg = 1000 Iu)] 25 mcg PO DAILY Polyvinyl Alcohol/Povidone [Clear Eyes Natural Tears Drop] 1 drop BOTH EYES QID Discontinued lisinopriL [Zestril] 10 mg PO DAILY Discharge Medication List Cholecalciferol [Vitamin D3 (25 Mcg = 1000 Iu)] 25 mcg PO DAILY 01/31/24 [History] Melatonin 3 mg PO HS 01/31/24 [History] Polyvinyl Alcohol/Povidone [Clear Eyes Natural Tears Drop] 1 drop BOTH EYES QID 01/31/24 [History] Acetaminophen Tab [Tylenol] 650 mg PO Q6HR PRN tab 02/03/24 [Rx] Amoxic-Pot Clav 875-125Mg [Augmentin 875-125] 1 tab PO BID 5 Days #10 tab 02/03/24 [Rx] Nystatin 100,000 Unit/gm Powd [Mycostatin Powder] 1 applic TOPICAL TID each 02/03/24 [Rx] Follow up Appointment(s)/Referral(s): [facility] [Primary Care Provider] - 1-2 days Cecily Choudhury NPC [Nurse Practitioner] - 1 Week Luz Maria Rodriguez DO [STAFF PHYSICIAN] - 1 Week Discharge Disposition: TRANSFER TO SNF/ECF Plan of Treatment: Apply honey gel/honey alginate to ulcerations. If utilizing honey alginate apply saline moist gauze dry gauze rolled gauze secure with paper tape. If util izing honey gel apply dry gauze and secure with tape. Change Tuesday.
--- NOTE | 2024-02-03 13:12 | P.PN ---
Subjective Progress Note Date: 02/03/24 CHIEF COMPLAINT: Fall HISTORY OF PRESENT ILLNESS: Surgical service following in regards to left breast wound. Ultrasound completed and results reviewed. No drainable abscess. Patient followed by wound care service and receiving local wound care. Pain is controlled. They are working on discharging patient to ECF today. Afebrile. WBC 8.1 PHYSICAL EXAM: VITAL SIGNS: Reviewed. GENERAL: no acute distress. Chest left breast with swelling in firmness noted distal left breast. No new drainage. Skin abrasion left chest wall below the breast. Dressing clean dry and intact ASSESSMENT: 1. Acute rhabdomyolysis due to fall 2. Left breast wound secondary to fall 3. Multiple pressure ulcers left side of body PLAN: -No surgical intervention planned -Continue local wound care -Patient can be discharge from surgical standpoint to ECF Physician Disc Sander note has been reviewed by physician. Signing provider agrees with the documented findings, assessment, and plan of care. Objective - Vital Signs Vital signs: Vital Signs Temp 97.8 F 02/03/24 12:00 Pulse 74 02/03/24 12:00 Resp 17 02/03/24 12:00 BP 109/44 02/03/24 12:00 Pulse Ox 95 02/03/24 12:00 FiO2 Intake & Output 02/02/24 02/03/24 02/03/24 18:59 06:59 18:59 Intake Total 720 240 Output Total 775 600 Balance -55 -600 240 Intake: Oral 720 240 Output: Urine 775 600 Other: Voiding Method Bedpan Bedpan Indwelling Catheter Urinal Urinal - Labs CBC & Chem 7: 02/03/24 09:23 02/03/24 09:23 Labs: Abnormal Lab Results - Last 24 Hours (Table) 02/03/24 02/03/24 Range/Units 09:23 09:23 RBC 3.83 L (4.30-5.90) m/uL Hgb 11.8 L (13.0-17.5) gm/dL Hct 38.4 L (39.0-53.0) % MCV 100.3 H (80.0-100.0) fL MCHC 30.6 L (31.0-37.0) g/dL Sodium 148 H (137-145) mmol/L Chloride 118 H (98-107) mmol/L BUN 45 H (9-20) mg/dL Glucose 121 H (74-99) mg/dL Calcium 8.0 L (8.4-10.2) mg/dL Magnesium 2.5 H (1.6-2.3) mg/dL Microbiology - Last 24 Hours (Table) 02/01/24 07:32 Blood Culture - Preliminary Blood
--- NOTE | 2024-02-03 14:38 | P.PN ---
Subjective Patient is seen for follow-up for acute kidney injury and hypernatremia Good urine output. Serum creatinine at 0.8 today. Sodium has decreased to 148. Currently maintained on D5W Objective - Vital Signs Vital signs: Vital Signs Temp 97.8 F 02/03/24 12:00 Pulse 74 02/03/24 12:00 Resp 17 02/03/24 12:00 BP 109/44 02/03/24 12:00 Pulse Ox 95 02/03/24 12:00 FiO2 Intake & Output 02/02/24 02/03/24 02/03/24 18:59 06:59 18:59 Intake Total 720 240 Output Total 775 600 Balance -55 -600 240 Intake: Oral 720 240 Output: Urine 775 600 Other: Voiding Method Bedpan Bedpan Indwelling Catheter Urinal Urinal - Exam patient is awake, comfortable, no acute distress. Examination of the heart S1 and S2 Examination the lungs bilateral breath sounds are heard Abdomen is soft nontender Examination of lower extremities shows no evidence of edema. ulcer noted on the forehead. - Labs CBC & Chem 7: 02/03/24 09:23 02/03/24 09:23 Labs: Abnormal Lab Results - Last 24 Hours (Table) 02/03/24 02/03/24 Range/Units 09:23 09:23 RBC 3.83 L (4.30-5.90) m/uL Hgb 11.8 L (13.0-17.5) gm/dL Hct 38.4 L (39.0-53.0) % MCV 100.3 H (80.0-100.0) fL MCHC 30.6 L (31.0-37.0) g/dL Sodium 148 H (137-145) mmol/L Chloride 118 H (98-107) mmol/L BUN 45 H (9-20) mg/dL Glucose 121 H (74-99) mg/dL Calcium 8.0 L (8.4-10.2) mg/dL Magnesium 2.5 H (1.6-2.3) mg/dL Microbiology - Last 24 Hours (Table) 02/01/24 07:32 Blood Culture - Preliminary Blood Assessment and Plan Assessment: 1. Acute kidney injury, ATN. Nonoliguric. Currently with indwelling Rodriguez catheter.UA shows 1+ protein and small blood. No obstruction noted on ultrasound. Left kidney not visualized due to patient's position. CK level at 2903 on admission. 2. lactic acidosis. 3. Rhabdomyolysis status post fall. 4. underlying dementia. 5. history of prostate the cancer status post prostatectomy 6. Hypernatremia associated with free water deficit Plan: Continue D5W Repeat labs in a.m. Encourage increased oral intake
[2024-02-03] MEDS ORDERED: ZINC OXIDE PASTE (Z-GUARD) 1 APPLIC TOPICAL SCH (16:00)
[2024-02-03 20:26] VITALS: BP 119/56; PULSE 72; RESP 16; TEMP 98
== END 2024-02-03 21:42 | DRG 564 ==
LOC: EC 15:51 → 3SCARD 19:43
PROVIDERS: ADMIT Internal Medicine; ATTEND Internal Medicine
DX: T79.6XXA Traumatic ischemia of muscle, initial encounter (principal); N17.0 Acute kidney failure with tubular necrosis; E87.0 Hyperosmolality and hypernatremia; E87.1 Hypo-osmolality and hyponatremia; E86.0 Dehydration; F03.90 Unspecified dementia, unspecified severity, without behavioral disturbance, psychotic disturbance, mood disturbance, and anxiety; L89.95 Pressure ulcer of unspecified site, unstageable; N63.20 Unspecified lump in the left breast, unspecified quadrant; R62.7 Adult failure to thrive; S01.91XA Laceration without foreign body of unspecified part of head, initial encounter; B37.9 Candidiasis, unspecified; L89.810 Pressure ulcer of head, unstageable; L89.120 Pressure ulcer of left upper back, unstageable; L89.890 Pressure ulcer of other site, unstageable; I10 Essential (primary) hypertension; H91.90 Unspecified hearing loss, unspecified ear; M19.042 Primary osteoarthritis, left hand; W18.30XA Fall on same level, unspecified, initial encounter; I69.398 Other sequelae of cerebral infarction; H53.8 Other visual disturbances; Z79.899 Other long term (current) drug therapy; Z85.46 Personal history of malignant neoplasm of prostate; R00.0 Tachycardia, unspecified; Z90.79 Acquired absence of other genital organ(s); Z98.42 Cataract extraction status, left eye; Z98.41 Cataract extraction status, right eye
CPT/HCPCS: 36415; 70450; 71045; 72125; 73502; 76770; 80048; 80053; 81001; 82550; 82552; 83605; 83735; 84100; 84484; 85025; 85610; 85730; 87040; 93005; 93308; 93923; 94760; 96361; 96365; 96372; 99291

== ENCOUNTER 2024-02-16 16:24 | Emergency (ER) | payer MEDICARE ==
--- NOTE | 2024-02-16 16:36 | ED ---
Arrhythmia/Palpitations HPI - General Stated Complaint: vascular cons/poss infection Time Seen by Provider: 02/16/24 16:27 Source: RN notes reviewed, old records reviewed Limitations: no limitations - History of Present Illness Initial Comments: This is a 88-year-old male who presented with heart rate palpitations and chest pain but his main complaint here in the ER is draining left surgical site left hand wound with drainage from the left hand patient was sent to the ER from [facility] where he was seen by a vascular surgeon for transferred for possible evaluation debridement or amputation of the left upper extremity secondary to infection gangrene Complaint: palpitations Context: occurred during rest Associated Symptoms: denies other symptoms Treatments Prior to Arrival: other (Has no complaints) - Related Data Home Medications Medication Instructions Recorded Confirmed Cholecalciferol [Vitamin D3 (25 25 mcg PO DAILY 01/31/24 02/16/24 Mcg = 1000 Iu)] Polyvinyl Alcohol/Povidone [Clear 1 drop BOTH EYES QID@08,12,17,21 01/31/24 02/16/24 Eyes Natural Tears Drop] Collagenase [Santyl Ointment] 1 applic TOPICAL DAILY 02/16/24 02/16/24 Collagenase [Santyl Ointment] 1 applic TOPICAL DAILY PRN 02/16/24 02/16/24 HYDROcodone/APAP 5-325MG [[place] 1 tab PO Q6H PRN 02/16/24 02/16/24 5-325] Ipratropium-Albuterol Nebulize 3 ml INHALATION RT-Q6H 02/16/24 02/16/24 [Duoneb 0.5 mg-3 mg/3 ml Soln] Ipratropium-Albuterol Nebulize 3 ml INHALATION RT-Q6H PRN 02/16/24 02/16/24 [Duoneb 0.5 mg-3 mg/3 ml Soln] Doe Packet 1 packet PO BID-W/MEALS 02/16/24 02/16/24 Lidocaine 5% Cream 1 applic TOPICAL WE 02/16/24 02/16/24 Liquacel 30 ml PO BID-W/MEALS 02/16/24 02/16/24 Magnesium Hydroxide [Milk of 7,200 mg PO Q48H PRN 02/16/24 02/16/24 Magnesia Concentrate] Melatonin 3 mg PO HS 02/16/24 02/16/24 Na Phos,M-B/Na Phos,Di-Ba [Fleet 133 ml RECTAL DAILY PRN 02/16/24 02/16/24 Adult] Nystatin 100,000 Unit/gm Powd 1 applic TOPICAL TID 02/16/24 02/16/24 [Mycostatin Powder] bisacodyL [Dulcolax] 10 mg RECTAL DAILY 02/16/24 02/16/24 Previous Rx's Medication Instructions Recorded Acetaminophen Tab [Tylenol] 650 mg PO Q6HR PRN tab 02/03/24 Allergies Allergy/AdvReac Type Severity Reaction Status Date / Time No Known Allergies Allergy Verified 02/16/24 17:50 Review of Systems ROS Statement: Those systems with pertinent positive or pertinent negative responses have been documented in the HPI. ROS Other: All systems not noted in ROS Statement are negative. Past Medical History Past Medical History: Cancer, CVA/TIA, Dementia, GERD/Reflux, Hearing Disorder / Deafness, Hypertension, Prostate Disorder Additional Past Medical History / Comment(s): CVA with R eye vision changes, prostate cancer with prostatectomy, bilateral tinnitis, constipation, ETOH abuse, past cervical fracture with surgery/has limited ROM, falls. History of Any Multi-Drug Resistant Organisms: None Reported Past Surgical History: Orthopedic Surgery, Prostate Surgery Additional Past Surgical History / Comment(s): Prostatectomy, cervical surgery with plate/screws, colonoscopy, bilateral cataract removals/lens implants. Past Anesthesia/Blood Transfusion Reactions: No Reported Reaction Smoking Status: Former smoker, Never smoker - Past Family History Father Family Medical History: Diabetes Mellitus Additional Family Medical History / Comment(s): Father may have had cancer but pt is not certain. Mother Family Medical History: Cancer Additional Family Medical History / Comment(s): Breast cancer General Exam General appearance: alert, in no apparent distress Head exam: Present: atraumatic, normocephalic, normal inspection Eye exam: Present: normal appearance, PERRL, EOMI. Absent: scleral icterus, conjunctival injection, periorbital swelling ENT exam: Present: normal exam, mucous membranes moist Neck exam: Present: normal inspection. Absent: tenderness, meningismus, lymphadenopathy Respiratory exam: Present: normal lung sounds bilaterally. Absent: respiratory distress, wheezes, rales, rhonchi, stridor Cardiovascular Exam: Present: regular rate, normal rhythm, normal heart sounds. Absent: systolic murmur, diastolic murmur, rubs, gallop, clicks GI/Abdominal exam: Present: soft, normal bowel sounds. Absent: distended, ten derness, guarding, rebound, rigid Extremities exam: Present: pedal edema, other ( significant edema swelling and gangrenous changes of the left hand and left upper extremity [place]. Drainage). Absent: tenderness Back exam: Present: normal inspection Neurological exam: Present: alert, oriented X3, CN II-XII intact Psychiatric exam: Present: normal affect, normal mood Skin exam: Present: warm, dry, intact, normal color. Absent: rash Course Vital Signs 02/16/24 02/16/24 16:28 21:24 Temperature 97.8 F Pulse Rate 91 99 Respiratory 16 18 Rate Blood Pressure 116/76 158/86 O2 Sat by Pulse 100 100 Oximetry - Reevaluation(s) Reevaluation #1: 02/16/24 17:47 Patient reviewed Reevaluation #2: 02/16/24 17:47 Patient symptoms are unchanged Reevaluation #3: 02/16/24 17:47 For results and questions answered Reevaluation #4: Was pt. sent in by a medical professional or institution (, PA, RETAIL [employer]AND AMBASSADOR, urgent care, hospital, or jail...) When possible be specific @ -no Did you speak to anyone other than the patient for history (EMS, parent, family, police, friend...)? What history was obtained from this source @ -no Did you review nursing and triage notes (agree or disagree)? Why? @ -agree Are old charts reviewed (outside hosp., previous admission, EMS record, old EKG, old radiological studies, urgent care reports/EKG's, jail records)? Report findings @ -yes Differential Diagnosis (chest pain, altered mental status, abdominal pain women, abdominal pain men, vaginal bleeding, weakness, fever, dyspnea, syncope, headache, dizziness, GI bleed, back pain, seizure, CVA, palpatations, mental health, musculoskeletal)? @ -prior EKG interpreted by me (3pts min.). @ -yes X-rays interpreted by me (1pt min.). @ -yes negative for acute disease CT interpreted by me (1pt min.). @ -no U/S interpreted by me (1pt. min.). @ -no What testing was considered but not performed or refused? (CT, X-rays, U/S, labs)? Why? @ -none What meds were considered but not given or refused? Why? @ -none Did you discuss the management of the patient with other professionals ( professionals i.e. , PA, [employer]BASSADOR, lab, RT, psych nurse, nephrology social worker, guyline operator, teacher, chief talent officer, rifle case repairer)? Give summary @ -no Was smoking cessation discussed for >3mins.? @ -no Was critical care preformed (if so, how long)? @ -yes31 Were there social determinants of health that impacted care today? How? (Homelessness, low income, unemployed, alcoholism, drug addiction, transportation, low edu. Level, literacy, decrease access to med. care, skilled nursing, rehab)? @ -none Was there de-escalation of care discussed even if they declined (Discuss DNR or withdrawal of care, Hospice)? DNR status @ -no What co-morbidities impacted this encounter? (DM, HTN, Smoking, COPD, CAD, Cancer, CVA, ARF, Chemo, Hep., AIDS, mental health diagnosis, sleep apnea, morbid obesity)? @ -none Was patient admitted / discharged? Hospital course, mention meds given and route, prescriptions, significant lab abnormalities, going to OR and other pertinent info. @ - 88 male will be transferred to [facility] for infection of the left hand no significants, patient does have left hand infection allegedly from recent left hand compartment syndrome with significant malodorous drainage will admit for IV antibiotics Admitted Undiagnosed new problem with uncertain prognosis? @ -no Drug Therapy requiring intensive monitoring for toxicity (Heparin, Nitro, Insulin, Cardizem)? @ -no Were any procedures done? @ -no Diagnosis/symptom? @ -Left hand infection and possible compartment syndrome Acute, or Chronic, or Acute on Chronic? @ -Acute Uncomplicated (without systemic symptoms) or Complicated (systemic symptoms)? @ -Complicated Side effects of treatment? @ -no Exacerbation, Progression, or Severe Exacerbation? @ -exacerbation Poses a threat to life or bodily function? How? (Chest pain, USA, CT, pneumonia, PE, COPD, DKA, ARF, appy, cholecystitis, CVA, Diverticulitis, Homicidal, Suicidal, threat to staff... and all critical care pts) @ -yes with extremes of age Reevaluation #5: Differential Palpitations Ventricular arrhythmias, atrial arrhythmias, myocardial infarction, anemia, thyrotoxicosis, electrolyte imbalance, hypokalemia, pulmonary embolism, pulm onary disease, drugs, alcohol, anxiety, stress.... This is not meant to be an all-inclusive list. - Consultations Consultation #1: Spoke with [facility] who ER who accepts patient in transfer EKG Findings - EKG Comments: EKG Findings:: EGS sinus 85 MT 158 QRS 78 QTc 382 - EKG Results: EKG: interpreted by EDITA Medical Decision Making - Medical Decision Making 88 male will be transferred to [facility] for infection of the left hand no significants, patient does have left hand infection allegedly from recent left hand compartment syndrome with significant malodorous drainage will admit for IV antibiotics - Lab Data Result diagrams: 02/16/24 17:39 02/16/24 17:39 Lab Results 02/16/24 02/16/24 02/16/24 Range/Units 17:39 17:39 17:39 WBC 10.6 (3.8-10.6) k/uL RBC 3.74 L (4.30-5.90) m/uL Hgb 11.4 L (13.0-17.5) gm/dL Hct 36.5 L (39.0-53.0) % MCV 97.7 (80.0-100.0) fL MCH 30.4 (25.0-35.0) pg MCHC 31.1 (31.0-37.0) g/dL RDW 12.7 (11.5-15.5) % Plt Count 494 H D (150-450) k/uL MPV 7.8 Neutrophils % 82 % Lymphocytes % 10 % Monocytes % 4 % Eosinophils % 2 % Basophils % 0 % Neutrophils # 8.7 H (1.3-7.7) k/uL Lymphocytes # 1.1 (1.0-4.8) k/uL Monocytes # 0.5 (0-1.0) k/uL Eosinophils # 0.2 (0-0.7) k/uL Basophils # 0.1 (0-0.2) k/uL Hypochromasia Slight PT (10.0-12.5) sec INR (<1.2) APTT (22.0-30.0) sec Sodium 135 L (137-145) mmol/L Potassium 4.7 (3.5-5.1) mmol/L Chloride 105 (98-107) mmol/L Carbon Dioxide 24 (22-30) mmol/L Anion Gap 6 mmol/L BUN 39 H (9-20) mg/dL Creatinine 0.62 L (0.66-1.25) mg/dL Est GFR (CKD-EPI)AfAm >90 (>60 ml/min/1.73 sqM) Est GFR (CKD-EPI)NonAf 89 (>60 ml/min/1.73 sqM) Glucose 96 (74-99) mg/dL Plasma Lactic Acid Wilmer 1.6 (0.7-2.0) mmol/L Calcium 8.2 L (8.4-10.2) mg/dL Phosphorus 3.7 (2.5-4.5) mg/dL Magnesium 2.0 (1.6-2.3) mg/dL Total Bilirubin 0.4 (0.2-1.3) mg/dL AST 32 (17-59) U/L ALT 27 (4-49) U/L Alkaline Phosphatase 149 H (38-126) U/L Troponin I (0.000-0.034) ng/mL NT-Pro-B Natriuret Pep 555 pg/mL Total Protein 6.0 L (6.3-8.2) g/dL Albumin 2.8 L (3.5-5.0) g/dL Urine Color Urine Appearance (Clear) Urine pH (5.0-8.0) Ur Specific [place] (1.001-1.035) Urine Protein (Negative) Urine Glucose (UA) (Negative) Urine Ketones (Negative) Urine Blood (Negative) Urine Nitrite (Negative) Urine Bilirubin (Negative) Urine Urobilinogen (<2.0) mg/dL Ur Leukocyte Esterase (Negative) Urine RBC (0-5) /hpf Urine WBC (0-5) /hpf Urine Bacteria (None) /hpf Urine Mucus (None) /hpf 02/16/24 02/16/24 02/16/24 Range/Units 17:39 18:22 19:46 WBC (3.8-10.6) k/uL RBC (4.30-5.90) m/uL Hgb (13.0-17.5) gm/dL Hct (39.0-53.0) % MCV (80.0-100.0) fL MCH (25.0-35.0) pg MCHC (31.0-37.0) g/dL RDW (11.5-15.5) % Plt Count (150-450) k/uL MPV Neutrophils % % Lymphocytes % % Monocytes % % Eosinophils % % Basophils % % Neutrophils # (1.3-7.7) k/uL Lymphocytes # (1.0-4.8) k/uL Monocytes # (0-1.0) k/uL Eosinophils # (0-0.7) k/uL Basophils # (0-0.2) k/uL Hypochromasia PT 11.6 (10.0-12.5) sec INR 1.1 (<1.2) APTT 22.1 (22.0-30.0) sec Sodium (137-145) mmol/L Potassium (3.5-5.1) mmol/L Chloride (98-107) mmol/L Carbon Dioxide (22-30) mmol/L Anion Gap mmol/L BUN (9-20) mg/dL Creatinine (0.66-1.25) mg/dL Est GFR (CKD-EPI)AfAm (>60 ml/min/1.73 sqM) Est GFR (CKD-EPI)NonAf (>60 ml/min/1.73 sqM) Glucose (74-99) mg/dL Plasma Lactic Acid Wilmer (0.7-2.0) mmol/L Calcium (8.4-10.2) mg/dL Phosphorus (2.5-4.5) mg/dL Magnesium (1.6-2.3) mg/dL Total Bilirubin (0.2-1.3) mg/dL AST (17-59) U/L ALT (4-49) U/L Alkaline Phosphatase (38-126) U/L Troponin I <0.012 (0.000-0.034) ng/mL NT-Pro-B Natriuret Pep pg/mL Total Protein (6.3-8.2) g/dL Albumin (3.5-5.0) g/dL Urine Color Colorless Urine Appearance Clear (Clear) Urine pH 5.0 (5.0-8.0) Ur Specific [place] 1.019 (1.001-1.035) Urine Protein Negative (Negative) Urine Glucose (UA) Negative (Negative) Urine Ketones Negative (Negative) Urine Blood Negative (Negative) Urine Nitrite Negative (Negative) Urine Bilirubin Negative (Negative) Urine Urobilinogen <2.0 (<2.0) mg/dL Ur Leukocyte Esterase Small H (Negative) Urine RBC 4 (0-5) /hpf Urine WBC 1 (0-5) /hpf Urine Bacteria Many H (None) /hpf Urine Mucus Rare H (None) /hpf - EKG Data -: EKG Interpreted by Me Critical Care Time Critical Care Time: Yes Total Critical Care Time: 31 Disposition Clinical Impression: Cellulitis of left hand, 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
[2024-02-16 16:43] VITALS: TEMP 97.8
[2024-02-16] MEDS ORDERED: NALOXONE 0.4 MG/ML 1 ML VIAL IV PRN (17:42)
[2024-02-16] MEDS ORDERED: ONDANSETRON 4 MG/2 ML VIAL IVP PRN (17:42)
[2024-02-16] MEDS ORDERED: HYDROmorphone 1 MG/ML 1 ML SYRINGE IVP PRN (17:42)
[2024-02-16] MEDS ORDERED: VANCOMYCIN IV PER PHARMACY 1 EACH MISC MISCELLANE PRN (17:48)
[2024-02-16 17:52] LABS: Basophils # (A) 0.1 k/uL (0-0.2); Basophils % (A) 0 %; Eosinophils # (A) 0.2 k/uL (0-0.7); Eosinophils % (A) 2 %; HCT 36.5 % (39.0-53.0); HGB 11.4 gm/dL (13.0-17.5); Hypochromasia Slight; Lymphocytes # (A) 1.1 k/uL (1.0-4.8); Lymphocytes % (A) 10 %; MCH 30.4 pg (25.0-35.0); MCHC 31.1 g/dL (31.0-37.0); MCV 97.7 fL (80.0-100.0); Mean Platelet Volume 7.8; Monocytes # (A) 0.5 k/uL (0-1.0); Monocytes % (A) 4 %; Neutrophils # (A) 8.7 k/uL (1.3-7.7); Neutrophils % (A) 82 %; RBC 3.74 m/uL (4.30-5.90); RDW 12.7 % (11.5-15.5); WBC 10.6 k/uL (3.8-10.6)
[2024-02-16 18:16] LABS: ALT 27 U/L (4-49); AST 32 U/L (17-59); African American GFR (CKD) >90 (>60 ml/min/1.73 sqM); Albumin 2.8 g/dL (3.5-5.0); Alkaline Phosphatase 149 U/L (38-126); Anion Gap 6 mmol/L; Blood Urea Nitrogen 39 mg/dL (9-20); Calcium 8.2 mg/dL (8.4-10.2); Carbon Dioxide 24 mmol/L (22-30); Chloride 105 mmol/L (98-107); Glucose 96 mg/dL (74-99); Non-African American GFR(CKD) 89 (>60 ml/min/1.73 sqM); Phosphorus 3.7 mg/dL (2.5-4.5); Potassium 4.7 mmol/L (3.5-5.1); Sodium 135 mmol/L (137-145); Total Bilirubin 0.4 mg/dL (0.2-1.3)
[2024-02-16 18:24] LABS: NT-Pro-B-Type Natriuretic Pept 555 pg/mL
[2024-02-16 18:25] LABS: Platelet Count 494 k/uL (150-450)
[2024-02-16] MEDS: PIPERACILLIN-TAZOBACTAM 3.375 GM in SODIUM CHLORIDE 0.9% 100 ML IVPB STA (18:31)
[2024-02-16 19:14] LABS: INR 1.1 (<1.2); Partial Thromboplastin Time 22.1 sec (22.0-30.0); Prothrombin Time 11.6 sec (10.0-12.5)
[2024-02-16] MEDS: SODIUM CHLORIDE 0.9% 1,000 ML IV STA (19:39)
[2024-02-16] MEDS: VANCOMYCIN 1,500 MG in SODIUM CHLORIDE 0.9% 500 ML 500 ML IVPB SCH (19:39)
[2024-02-16 20:00] LABS: Appearance,Urine Clear (Clear); Bacteria,Urine Many /hpf; Bilirubin,Urine Negative (Negative); Blood,Urine Negative (Negative); Color,Urine Colorless; Glucose,Urine (UA) Negative (Negative); Ketones,Urine Negative (Negative); Leukocyte Esterase,Urine Small (Negative); Mucus,Urine Rare /hpf; Nitrite,Urine Negative (Negative); Protein,Urine Negative (Negative); RBC,Urine 4 /hpf (0-5); Specific Gravity,Urine 1.019 (1.001-1.035); Urobilinogen,Urine <2.0 mg/dL (<2.0); WBC,Urine 1 /hpf (0-5)
[2024-02-16 21:26] VITALS: BP 158/86; PULSE 99; RESP 18
[2024-02-16] MEDS: SODIUM CHLORIDE 0.9% 1,000 ML IV SCH (21:26)
[2024-02-17] MEDS ORDERED: PIPERACILLIN-TAZOBACTAM 3.375 GM in SODIUM CHLORIDE 0.9% 100 ML IVPB SCH (02:00)
== END 2024-02-16 23:12 | disposition short-term general hospital (02) ==
LOC: EC 16:24 → 5NMEDONC 17:42 → UNDOADMIN 17:42 → 4SSUR 17:46 → UNDOADMIN 17:46 → 4SSUR 17:58 → EC 23:12
DX: I70.269 Atherosclerosis of native arteries of extremities with gangrene, unspecified extremity (principal); T79.A12A Traumatic compartment syndrome of left upper extremity, initial encounter; L03.114 Cellulitis of left upper limb; Z87.891 Personal history of nicotine dependence
CPT/HCPCS: 99291; 96365; 96366 ×2; 96368; 36415; 93005; 83880; 80053; 83605; 83735; 84100; 84484; 85025; 85610; 85730; 81001; 87040; J2543; J3370

== ENCOUNTER 2024-05-10 12:36 | Emergency (ER) | payer MEDICARE ==
--- NOTE | 2024-05-10 12:43 | ED ---
General Adult HPI - General Stated complaint: Fall Time Seen by Provider: 05/10/24 12:40 Source: patient, RN notes reviewed, old records reviewed - History of Present Illness Initial comments: This is an 88-year-old male end of falling out of his wheelchair. Patient states that he was outside in hit a bump and then fell forward landed on his knees and then hit his head and scraped his left elbow and right hand. Patient does not complain of any significant pain to the elbow or hand he is only complaint is a mild headache. Patient denies any neck pain patient [place] any new numbness or weakness. Patient states both knees feel like they have a minor scrape but he has no problems with range of motion - Related Data Home Medications Medication Instructions Recorded Confirmed Collagenase [Santyl Ointment] 1 applic TOPICAL DAILY PRN 02/16/24 05/10/24 Collagenase [Santyl Ointment] 1 applic TOPICAL HS 02/16/24 05/10/24 Dakins (1/2 Strength) External 1 applic TOPICAL DAILY PRN 05/10/24 05/10/24 Solution Dakins (1/2 Strength) External 1 applic TOPICAL HS 05/10/24 05/10/24 Solution L.acidoph,Paracasei, B.lactis 1 cap PO BID 05/10/24 05/10/24 [Probiotic] Lactose-Reduced Food [Ensure Plus] 1 can PO BID@0900,1700 05/10/24 05/10/24 Multivitamins, Thera [Multivitamin 1 tab PO DAILY 05/10/24 05/10/24 (formulary)] Sennosides/Docusate Sodium 1 tab PO HS 05/10/24 05/10/24 [Senna-S 8.6-50 mg Tablet] methocarbamoL [Robaxin] 500 mg PO TID PRN 05/10/24 05/10/24 Previous Rx's Medication Instructions Recorded Acetaminophen Tab [Tylenol] 650 mg PO Q6HR PRN tab 02/03/24 Allergies Allergy/AdvReac Type Severity Reaction Status Date / Time No Known Allergies Allergy Verified 05/10/24 14:10 Review of Systems ROS Statement: Those systems with pertinent positive or pertinent negative responses have been documented in the HPI. ROS Other: All systems not noted in ROS Statement are negative. Past Medical History Past Medical History: Cancer, CVA/TIA, Dementia, GERD/Reflux, Hearing Disorder / Deafness, Hypertension, Prostate Disorder Additional Past Medical History / Comment(s): CVA with R eye vision changes, prostate cancer with prostatectomy, bilateral tinnitis, constipation, ETOH abuse, past cervical fracture with surgery/has limited ROM, falls. History of Any Multi-Drug Resistant Organisms: None Reported Past Surgical History: Orthopedic Surgery, Prostate Surgery Additional Past Surgical History / Comment(s): Prostatectomy, cervical surgery with plate/screws, colonoscopy, bilateral cataract removals/lens implants. Past Anesthesia/Blood Transfusion Reactions: No Reported Reaction Smoking Status: Former smoker, Never smoker - Past Family History Father Family Medical History: Diabetes Mellitus Additional Family Medical History / Comment(s): Father may have had cancer but pt is not certain. Mother Family Medical History: Cancer Additional Family Medical History / Comment(s): Breast cancer General Exam - General Exam Comments Initial Comments: GENERAL: Patient is well-developed and well-nourished. Patient is nontoxic and well- hydrated and is in mild distress. ENT: Neck is soft and supple. No significant lymphadenopathy is noted. Oropharynx is clear. Moist mucous membranes. Patient is in a c-collar EYES: The sclera were anicteric and conjunctiva were pink and moist. Extraocular movements were intact and pupils were equal round and reactive to light. Eyelids were unremarkable. PULMONARY: Unlabored respirations. Good breath sounds bilaterally. No audible rales rhonchi or wheezing was noted. CARDIOVASCULAR: There is a regular rate and rhythm without any murmurs gallops or rubs. ABDOMEN: Soft and nontender with normal bowel sounds. No palpable organomegaly was noted. There is no palpable pulsatile mass. SKIN: Patient has a large skin tear on the left elbow measuring about 5 cm in diameter patient also has a large skin tear of the left side of the forehead measuring about 5 cm. Patient has some minor skin tears of the right hand NEUROLOGIC: Patient is alert and oriented x3. Cranial nerves II through XII are grossly intact. Motor and sensory are also intact. Normal speech, volume and content. Symmetrical smile. MUSCULOSKELETAL: Normal extremities with adequate strength and full range of motion. LYMPHATICS: No significant lymphadenopathy is noted PSYCHIATRIC: Normal psychiatric evaluation. Course Vital Signs 05/10/24 05/10/24 05/10/24 12:38 15:15 15:19 Temperature 98.6 F 98.9 F Pulse Rate 84 108 H 101 H Respiratory 16 20 18 Rate Blood Pressure 166/85 202/122 205/115 O2 Sat by Pulse 99 100 99 Oximetry 05/10/24 15:53 Temperature Pulse Rate 96 Respiratory 18 Rate Blood Pressure 126/98 O2 Sat by Pulse 100 Oximetry Medical Decision Making - Medical Decision Making Was pt. sent in by a medical professional or institution (, PA, MEDIA PROMOTER, urgent care, hospital, or retirement...) When possible be specific @ -residential sent the patient to the emergency Did you speak to anyone other than the patient for history (EMS, parent, family, police, friend...)? What history was obtained from this source @ -No Did you review nursing and triage notes (agree or disagree)? Why? @ -I reviewed and agree with nursing and triage notes Were old charts reviewed (outside hosp., previous admission, EMS record, old EKG, old radiological studies, urgent care reports/EKG's, retirement records)? Report findings @ -No old charts were reviewed Differential Diagnosis? @ -Subdural hematoma, epidural hematoma, intraparenchymal hemorrhage, subarachnoid hemorrhage, cervical spine fracture, this is not an all-inclusive list EKG interpreted by me (3pts min.). @ -As above X-rays interpreted by me (1pt min.). @ -None done CT interpreted by me (1pt min.). @ -Patient has a hairline fracture of C1 with no displacement U/S interpreted by me (1pt. min.). @ -None done What testing was considered but not performed or refused? (CT, X-rays, U/S, labs)? Why? @ -None What meds were considered but not given or refused? Why? @ -None Did you discuss the management of the patient with other professionals (professionals i.e. , [facility], MEDIA PROMOTER, lab, RT, psych nurse, social research assistant, backpackers manager, teacher, electorate officer, pillowcase folder)? Give summary @ -I spoke with Dr. Woodson he spoke with Dr. Turner and they wanted the patient placed in a collar and to follow-up as an outpatient. Was smoking cessation discussed for >3mins.? @ -No Was critical care preformed (if so, how long)? @ -No Were there social determinants of health that impacted care today? How? (Homelessness, low income, unemployed, alcoholism, drug addiction, transportation, low edu. Level, literacy, decrease access to med. care, fdc, rehab)? @ -No Was there de-escalation of care discussed even if they declined (Discuss DNR or withdrawal of care, Hospice)? DNR status @ -No What co-morbidities impacted this encounter? (DM, HTN, Smoking, COPD, CAD, Cancer, CVA, ARF, Chemo, Hep., AIDS, mental health diagnosis, sleep apnea, morbid obesity)? @ -None Was patient admitted / discharged? Hospital course, mention meds given and route, prescriptions, significant lab abnormalities, going to OR and other pertinent info. @ -Patient was put in a hard collar and will follow-up with Dr. Turner as an outpatient. Patient blood pressure was also mildly elevated in the emergency department given half Dilaudid for the pain and 10 of hydralazine and this brought his pressure down into a normal range. Undiagnosed new problem with uncertain prognosis? @ -No Drug Therapy requiring intensive monitoring for toxicity (Heparin, Nitro, Insulin, Cardizem)? @ -No Were any procedures done? @ -No Diagnosis/symptom? @ -C1 fracture Acute, or Chronic, or Acute on Chronic? @ -Acute Uncomplicated (without systemic symptoms) or Complicated (systemic symptoms)? @ -Complicated Side effects of treatment? @ -No Exacerbation, Progression, or Severe Exacerbation? @ -No Poses a threat to life or bodily function? How? (Chest pain, USA, CT, pneumonia, PE, COPD, DKA, ARF, appy, cholecystitis, CVA, Diverticulitis, Homicidal, Suicidal, threat to staff... and all critical care pts) @ -Yes if the patient did not have a collar fracture become worse or if he had more trauma the fracture could become worse he could have some neurologic deficit Diagnosis/symptom? @ -Hypertension urgency Acute, or Chronic, or Acute on Chronic? @ -Acute Uncomplicated (without systemic symptoms) or Complicated (systemic symptoms)? @ -Complicated Side effects of treatment? @ -None Exacerbation, Progression, or Severe Exacerbation] @ -No Poses a threat to life or bodily function? @ -No Disposition Clinical Impression: C1 cervical fracture, Hypertensive urgency Disposition: HOME SELF-CARE Condition: Good Instructions (If sedation given, give patient instructions): Fall Prevention for Older Adults (ED), Fall Prevention (ED), Foristell J Collar (ED) Additional Instructions: Patient should follow-up with Dr. Turner about the C1 fracture Is patient prescribed a controlled substance at d/c from ED?: No Referrals: [facility],Clinic [Primary Care Provider] - 1-2 days Time of Disposition: 16:09
[2024-05-10] MEDS: DIPH,PERTUS(ACELL)TETVAC-LF 0.5 ML VIAL IM ONE (13:17)
--- NOTE | 2024-05-10 13:36 | CT ---
EXAMINATION TYPE: CT brain cspine wo con CT DLP: 1600 mGycm, Automated exposure control for dose reduction was used. DATE OF EXAM: 05/10/2024 1:16 PM COMPARISON: 01/31/2024. CLINICAL INDICATION: Male, 88 years old with history of Trauma; TECHNIQUE: Brain: Multiple axial CT images of the brain were obtained without IV contrast. Cspine: Axial CT images from the skull base to the inferior aspect of T2 we obtained without intraven ous contrast. Coronal and sagittal reformatted images were also reviewed. . FINDINGS: Brain: Extra-axial spaces: No abnormal extra-axial fluid collections. Ventricular system: Within normal limits Cerebral parenchyma: No acute intraparenchymal hemorrhage or mass effect. The nixon-white junction is well differentiated. Cerebellum: Unremarkable. Mass effect: No evidence of midline shift. Intracranial vasculature: unremarkable Soft tissues: Normal. Calvarium/osseous structures: No depressed skull fracture. Paranasal sinuses and mastoid air cells: Right maxillary sinus paranasal sinus disease which extends into the nasal cavity. Visualized orbits: Orbital contents are intact. Cervical spine: Fracture: There is a new fracture from 01/31/2024 normal in the right posterior arch of C1. Series 301 image 38 Osseous structures: Multilevel degenerative disc disease changes with endplate spurring and disc oste ophyte complex's. Postsurgical changes of the spine appears stable. Calcification along the anterior longitudinal ligament Vertebral alignment: Stable fixed malalignment of T7 on T1. Hardware appears intact. Spinal canal/Neural Foramina: No evidence of significant spinal canal narrowing. No evidence for sign ificant neural foraminal stenosis. Neck soft tissues: Prevertebral soft tissues are within normal limits. Other: The airway is patent. The lung apices are clear. IMPRESSION: 1. New right posterior arch of C1 hairline fracture without displacement. 2. No acute intracranial process. 3. Postsurgical changes to the spine with hardware intact. 4. Paranasal sinus disease in the right maxillary sinus with complete opacification of the maxillary sinus visualized and thi right nasal cavity. Consider MRI evaluation to rule out polyps. Findings jarrell ve worsened from priors..
[2024-05-10 15:19] VITALS: RESP 18
[2024-05-10] MEDS: hydrALAZINE HCL 20 MG/ML 1 ML VIAL IVP STA (15:31)
[2024-05-10] MEDS: HYDROmorphone 0.5 MG/0.5 ML SYRINGE IVP STA (15:32)
[2024-05-10 17:31] VITALS: BP 162/98; PULSE 110; TEMP 98
== END 2024-05-10 17:51 | disposition home or self-care (01) ==
LOC: EC 12:36
CPT/HCPCS: 70450; 72125; 90471; 90715; 96374; 99285